=== PATIENT | female | born 1945 | race Caucasian/White ===

== ENCOUNTER 2016-08-27 07:12 | Day surgery (SDC) | payer MEDICARE, OTHER ==
[2016-08-26 09:55] VITALS: BMI 21.8
[~2016-08-27 07:12] MED LIST: DEXAMETHASONE SOD PHOSPHATE 10 MG/ML 1 ML VIAL IV ONE; DEXAMETHASONE SOD PHOSPHATE 4 MG/ML 1 ML VIAL IV ONE; FAMOTIDINE 20 MG/2 ML VIAL IV ONE; HYDROmorphone 1 MG/ML 1 ML SYRINGE IVP PRN; LACTATED RINGERS 1,000 ML IV SCH; ONDANSETRON 4 MG/2 ML VIAL IVP ONE
[2016-08-27] MEDS ORDERED: LIDOCAINE 1% 20 ML VIAL (10MG/ML) FOR IV START INTRADERMA ONE (07:57)
[2016-08-27 08:15] LABS: Basophils # (A) 0.1 k/uL (0-0.2); Basophils % (A) 1 %; CHCM 35.7; Eosinophils # (A) 0.4 k/uL (0-0.7); Eosinophils % (A) 6 %; HCT 40.6 % (34.0-46.0); HDW 2.67; HGB 14.3 gm/dL (11.4-16.0); Luc % (Auto) 3; Lymphocytes # (A) 1.3 k/uL (1.0-4.8); Lymphocytes % (A) 18 %; MCH 32.8 pg (25.0-35.0); MCHC 35.3 g/dL (31.0-37.0); MCV 92.9 fL (80.0-100.0); Mean Platelet Volume 6.7; Monocytes # (A) 0.5 k/uL (0-1.0); Monocytes % (A) 7 %; Neutrophils # (A) 4.8 k/uL (1.3-7.7); Neutrophils % (A) 67 %; RBC 4.37 m/uL (3.80-5.40); RDW 12.4 % (11.5-15.5); WBC 7.2 k/uL (3.8-10.6); WBC (Perox) 7.25
[2016-08-27] MEDS ORDERED: GLYCOPYRROLATE 0.2 MG/ML 2 ML VIAL ONE (08:56)
[2016-08-27] MEDS ORDERED: DEXAMETHASONE SOD PHOS (MDV) 100 MG/10 ML VIAL ONE (08:56)
[2016-08-27] MEDS ORDERED: MIDAZOLAM 2 MG/2 ML VIAL ONE (08:56)
[2016-08-27] MEDS ORDERED: ROCURONIUM BROMIDE 10 MG/ML 10 ML VIAL IV ONE (08:56)
[2016-08-27] MEDS ORDERED: LIDOCAINE 1% INJ 10MG/ML (20 ML MDV) ONE (08:56)
[2016-08-27] MEDS ORDERED: SUCCINYLCHOLINE CHLORIDE 100 MG/5 ML SYR IV ONE (08:56)
[2016-08-27] MEDS ORDERED: PROPOFOL 10 MG/ML 20 ML VIAL IV ONE (08:56)
[2016-08-27] MEDS ORDERED: NEOSTIGMINE 1 MG/ML 10 ML VIAL ONE (08:56)
[2016-08-27] MEDS ORDERED: fentaNYL (PF) 50 MCG/ML 2 ML AMP ONE (08:56)
[2016-08-27 09:47] VITALS: TEMP 97.2
--- NOTE | 2016-08-27 10:01 | P.OP ---
Date of Procedure: 08/27/16 Preoperative Diagnosis: Left vocal cord lesion, leukoplakia, changing, suspicious Cough Dysphasia Tobacco use disorder, hoarseness Postoperative Diagnosis: Same Procedure(s) Performed: Direct microscopic laryngoscopy and removal of left vocal cord lesion Esophagoscopy Bronchoscopy Implants: Anesthesia: CURRYA Surgeon: Bharath Campos Estimated Blood Loss (ml): 0 Pathology: other (Left laryngeal lesion) Condition: stable Disposition: PACU Indications for Procedure: This patient is a 69-year-old white female who is a long-term smoker and was complaining of hoarseness coughing and dysphagia. She has a lesion of the left cord that suspicious change and growing. Is also continuing to smoke AGAINST MEDICAL ADVICE and smokes sometimes upwards to 3 packs per day. Removal of this lesion is recommended. Operative Findings: Patient had a suspicious lesion of the left vocal cord that was removed. Patient has evidence of chronic bronchitis. Esophagus showed no pathology other than some mild reflux disease. Description of Procedure: This patient was taken to the operative room and placed in the supine position. A general inhalation anesthetic was administered to the patient by mask and subsequently intubated with a cuffed endotracheal tube by the department of anesthesia with a functioning IV line in place. Patient was monitored throughout the entire case by the department of anesthesia. A gum guard was placed and a Jako laryngoscope was placed in the patient's mouth with care to avoid any trauma to the lips and gums or tongue. The patient is edentulous. The scope was inserted and the entire Quoc and hypopharynx was evaluated including the piriform sinus lateral pharynx post cricoid space Early vocal cords epiglottis vallecula etc. This was placed on suspension on a Lewy and the vocal cords were magnified with a high-powered Zeiss microscope. There was a whitish lesion noted on the left vocal cord which was removed superficially with care to avoid any trauma to the lamina propria. This was removed on the left anterior vocal cord but care was given not to biopsy in the commissure itself. Hemostasis was spontaneous. After this lesion was removed a bronchoscope was inserted and all 12 segments of the lungs were evaluated. There was evidence of chronic bronchitis with a large amount of mucus but there was no evidence of any endobronchial lesions. The scope was removed and esophagoscope was inserted and the entire length of the esophagus was evaluated. There was no evidence of any esophageal lesions. There was evidence of mild reflux disease. Our esophagoscope went from the upper to lower esophageal sphincter. The patient tolerated this well and a follow-up will be in the office in one week the patient's on 7 days of voice rest.
[2016-08-27 10:55] VITALS: RESP 20
[2016-08-27 11:16] VITALS: BP 122/72; PULSE 68
== END 2016-08-27 11:27 | disposition home or self-care (01) ==
LOC: OR 07:12
PROVIDERS: ATTEND Otolaryngology
DX: J38.3 Other diseases of vocal cords (principal); R47.02 Dysphasia; J38.4 Edema of larynx; J38.7 Other diseases of larynx; J42 Unspecified chronic bronchitis; J45.909 Unspecified asthma, uncomplicated; I10 Essential (primary) hypertension; E03.9 Hypothyroidism, unspecified; E78.5 Hyperlipidemia, unspecified; K21.9 Gastro-esophageal reflux disease without esophagitis; F17.200 Nicotine dependence, unspecified, uncomplicated; Z79.2 Long term (current) use of antibiotics; Z79.891 Long term (current) use of opiate analgesic; Z79.51 Long term (current) use of inhaled steroids; Z79.52 Long term (current) use of systemic steroids; Z79.899 Other long term (current) drug therapy
CPT/HCPCS: 88305; 85025; 31541; 43200; 31622; J2250; J1100 ×2; J2710; J2405; J2001; J3010; J0330; J2704

== ENCOUNTER → 2016-11-05 | Outpatient (CLI) | payer MEDICARE, OTHER ==
--- NOTE | 2016-11-05 12:11 | CT ---
EXAMINATION TYPE: CT brain wo/w con DATE OF EXAM: 11/05/2016 COMPARISON: NONE HISTORY: Ataxic gait CT DLP: 2232 mGycm Automated Exposure Control for Dose Reduction was Utilized. TECHNIQUE: CT scan of the head is performed with IV contrast.,CT scan of the head is performed withou t and with without and with IV Contrast, patient injected with 80 mL of Visipaque 320. FINDINGS: Noncontrast images show no acute intracranial hemorrhage or midline shift. Few scattered foci of hypoattenuation are seen within the centrum semiovale. The ventricles and sulci are within no rmal limits in size. Postcontrast images show no suspicious enhancing intraparenchymal mass. The glob es are intact and the visualized sinuses are clear. Right ocular lens is surgically absent. Atheroscl erosis is seen of the intracranial vasculature. IMPRESSION: 1. No mass effect, abnormal enhancement, acute territorial infarct, or midline shift. 2. Mild white matter changes within the from semiovale, likely on the basis of chronic microangiopath y.
== END | disposition home or self-care (01) ==
LOC: RADCTMAIN 10:31
PROVIDERS: ATTEND Family Medicine
DX: R90.82 White matter disease, unspecified (principal); R26.0 Ataxic gait
CPT/HCPCS: 82565; 84520; 70470; 36415; Q9967

== ENCOUNTER → 2016-12-17 | Outpatient (CLI) | payer MEDICARE, OTHER ==
[2016-12-17 09:38] LABS: CH 31.9; CHCM 33.2; HCT 42.4 % (34.0-46.0); HDW 2.29; HGB 13.6 gm/dL (11.4-16.0); MCHC 32.2 g/dL (31.0-37.0); MCV 96.5 fL (80.0-100.0); Mean Platelet Volume 7.1; RBC 4.39 m/uL (3.80-5.40); RDW 12.4 % (11.5-15.5); WBC 6.5 k/uL (3.8-10.6)
[2016-12-17 09:56] LABS: Potassium 4.6 mmol/L (3.5-5.1)
== END | disposition home or self-care (01) ==
LOC: LABPAT 09:15
PROVIDERS: ATTEND Internal Medicine Interventional Cardiology
DX: Z01.812 Encounter for preprocedural laboratory examination (principal)
CPT/HCPCS: 80051; 82565; 84520; 85027

== ENCOUNTER 2016-12-21 08:32 | Day surgery (SDC) | payer MEDICARE, OTHER ==
[2016-12-16 09:34] VITALS: BMI 21.4
[~2016-12-21 08:32] MED LIST changes: -DEXAMETHASONE SOD PHOSPHATE 10 MG/ML 1 ML VIAL IV ONE; -DEXAMETHASONE SOD PHOSPHATE 4 MG/ML 1 ML VIAL IV ONE; +DOCUSATE 100 MG CAP PO PRN; -FAMOTIDINE 20 MG/2 ML VIAL IV ONE; -HYDROmorphone 1 MG/ML 1 ML SYRINGE IVP PRN; -LACTATED RINGERS 1,000 ML IV SCH; +MAG HYDROX/AL HYDROX/SIMETH 30 ML CUP PO PRN; -ONDANSETRON 4 MG/2 ML VIAL IVP ONE; +SODIUM CHLORIDE 0.9% 1,000 ML IV SCH; +TEMAZEPAM 15 MG CAP PO PRN
[2016-12-21 09:18] LABS: Calcium 9.3 mg/dL (8.4-10.2); Potassium 4.2 mmol/L (3.5-5.1)
[2016-12-21] MEDS ORDERED: MIDAZOLAM 2 MG/2 ML VIAL IV ONE (12:14)
[2016-12-21] MEDS ORDERED: LIDOCAINE 2% INJ 20 MG/ML SQ ONE ×2 (12:19→12:20)
[2016-12-21] MEDS ORDERED: IODIXANOL 320 MG/ML 100 ML INTRAARTER ONE (12:39)
[2016-12-21] MEDS ORDERED: SODIUM CHLORIDE 0.9% 1,000 ML IV SCH (12:45)
--- NOTE | 2016-12-21 13:00 | P.CRDCN ---
History of Present Illness Consult date: 12/21/16 History of present illness: This is so a pleasant 71-year-old female patient who is a patient of Dr. Couch was admitted to the hospital to undergo an aortic arch and bilateral carotid angiogram later on today. The patient was found to have an abnormal carotid duplex study showing what it seems to be severe disease involving the right internal carotid artery. In review of that the patient was scheduled to undergo the arch and carotid angiogram. In terms of past medical history the patient does have hypertension and dyslipidemia. No documented history of coronary artery disease or congestive heart failure or any cardiac arrhythmia in the past. The patient underwent an aortic arch and carotid angiogram and that revealed type II aortic arch which is calcified was mild disease only and severe disease involving the right internal carotid artery appears to be in the range of 70% and mild disease involving the left internal carotid artery. The angiogram would be reviewed by Dr. Cat,. Past Medical History Past Medical History: Cancer, COPD, GERD/Reflux, Hyperlipidemia, Hypertension, Osteoarthritis (OA), Thyroid Disorder Additional Past Medical History / Comment(s): occ. DIZZINESS, CHRONIC BACK PAIN , hx. skin cancer on nose; no current meds for thyroid History of Any Multi-Drug Resistant Organisms: None Reported Past Surgical History: Back Surgery Additional Past Surgical History / Comment(s): triple endo 09/05 Past Anesthesia/Blood Transfusion Reactions: No Reported Reaction Smoking Status: Current every day smoker - Past Family History Mother Family Medical History: Unable to Obtain Additional Family Medical History / Comment(s): WAS ADOPTED. Medications and Allergies Home Medications Medication Instructions Recorded Confirmed Type Albuterol Sulfate [Proair Hfa] 1 puff INHALATION Q4H PRN 12/03/15 12/21/16 History Diazepam 5 mg PO Q8HR PRN 12/03/15 12/21/16 History Fluticasone/Salmeterol [Advair 1 puff INHALATION BID 12/03/15 12/21/16 History 500-50 Diskus] Meclizine [Antivert] 25 mg PO BID 12/03/15 12/21/16 History OLANZapine [ZyPREXA] 5 mg PO QAM 12/03/15 12/21/16 History Ranitidine HCl [Zantac] 150 mg PO QAM 12/03/15 12/21/16 History Omeprazole [PriLOSEC] 20 mg PO AC-BID 08/26/16 12/21/16 History Hydrocodone/Acetaminophen [[place] 1 - 2 each PO Q6HR PRN #30 tab 08/27/16 Rx 5-325] Lisinopril [Zestril] 20 mg PO DAILY 12/16/16 12/21/16 History amLODIPine [Norvasc] 5 mg PO DAILY 12/16/16 12/21/16 History buPROPion HCL [Wellbutrin XL] 300 mg PO DAILY 12/16/16 12/21/16 History Allergies Allergy/AdvReac Type Severity Reaction Status Date / Time No Known Allergies Allergy Verified 12/16/16 08:55 Physical Exam Vitals: Vital Signs Temp Pulse Resp BP Pulse Ox 12/21/16 09:00 97.9 F 66 20 121/69 99 Intake and Output 12/20/16 12/21/16 12/21/16 22:59 06:59 14:59 Intake Total 340 Balance 340 Intake: IV 340 - Constitutional General appearance: no acute distress - Respiratory Respiratory: bilateral: CTA - Cardiovascular Rhythm: regular Heart sounds: normal: S1, S2 Results 12/21/16 08:50 Comprehensive Metabolic Panel 12/21/16 Range/Units 08:50 Sodium 137 (137-145) mmol/L Potassium 4.2 (3.5-5.1) mmol/L Chloride 100 (98-107) mmol/L Carbon Dioxide 24 (22-30) mmol/L BUN 15 (7-17) mg/dL Creatinine 1.16 H (0.52-1.04) mg/dL Glucose 92 (74-99) mg/dL Calcium 9.3 (8.4-10.2) mg/dL Current Medications Generic Name Dose Route Start Last Admin Trade Name Freq PRN Reason Stop Dose Admin Al Hydroxide/Mg Hydroxide 30 ml 12/21/16 08:06 Maalox PO Q4HR PRN Indigestion Docusate Sodium 100 mg 12/21/16 08:06 Colace PO DAILY PRN Constipation Sodium Chloride 1,000 mls @ 100 mls/hr 12/21/16 08:06 12/21/16 08:50 Saline 0.9% IV 340 mls .Q10H SEAN Administration Sodium Chloride 1,000 mls @ 100 mls/hr 12/21/16 12:45 Saline 0.9% IV 12/21/16 17:46 .Q10H SEAN Temazepam 15 mg 12/21/16 08:06 Restoril PO HS PRN Insomnia Intake and Output 12/20/16 12/21/16 12/21/16 22:59 06:59 14:59 Intake Total 340 Balance 340 Intake: IV 340 12/21/16 08:50 Assessment and Plan Plan: This is a pleasant 71-year-old female patient who was admitted to the hospital and underwent an aortic arch and carotid angiogram. The patient is going to be discharged home in about 5 hours. We'll give the patient IV hydration. I'll follow-up with the patient next week in the office. Further recommendation to follow after I review the angiogram was Dr. Cat.
--- NOTE | 2016-12-21 13:02 | IR ---
EXAMINATION TYPE: IR angio aortic arch DATE OF EXAM: 12/21/2016 COMPARISON: NONE HISTORY: Peripheral vascular occlusive disease. Fluoroscopy was provided to the referring clinician. See dictated report from cardiology.
[2016-12-21 13:45] VITALS: RESP 18; TEMP 97.6
[2016-12-21 16:24] VITALS: BP 151/66; PULSE 63
--- NOTE | 2016-12-22 07:18 | AN ---
ANGIOGRAPHY REPORT DATE OF SERVICE: 12/21/2016 PERFORMING PHYSICIAN: Ryan Cortes MD, dividend clerk. PROCEDURE PERFORMED: 1. An aortic arch angiogram. 2. Selective bilateral carotid angiogram. INDICATION: This is a pleasant 71-year-old female patient who sees Dr. Cat as an outpatient who was found to have disease involving the right internal carotid artery. She was scheduled today to undergo an aortic arch and carotid angiogram. APPROACH: Right common femoral artery. COMPLICATION: None. LEVEL OF SEDATION: Moderate with sedation length of 22 minutes. PROCEDURE DESCRIPTION: After obtaining an informed consent, the patient was brought to the cardiac laborer. The right common femoral artery was cannulated using micropuncture technique, the micropuncture wire passed easily then I placed a 6-[place] sheath in the right common femoral artery. Subsequently I did an aortic arch angiogram using 5-[place] pigtail catheter. After that, I did selective right and left carotid angiogram using JB2 catheter. The procedure was completed without any complication. SELECTIVE PERIPHERAL ANGIOGRAM: 1. The aortic arch is a type 2 arch and it is a calcified arch as well. It has mild disease only. It gives rise to the innominate artery, left carotid, and left subclavian. 2. THE RIGHT CAROTID SYSTEM. The right common carotid artery appeared to be angiographically normal. It bifurcates into right external carotid and right internal carotid. The right external carotid appeared to have mild disease only and the right internal carotid has an ostial disease appeared to be in the range of 70%. 3. THE LEFT CAROTID SYSTEM. The left common carotid artery is angiographically normal. It bifurcates into left external carotid and left internal carotid. The left external carotid appeared to be angiographically normal and the left internal carotid appeared to have mild disease only. CONCLUSION: 1. Type 2 aortic arch, which is a calcified arch with mild disease only. 2. Severe disease involving the ostial/proximal right internal carotid artery. 3. Mild disease involving the left internal carotid artery. POSTPROCEDURE MANAGEMENT: Further recommendation is to follow after I discuss the case with Dr. Cat who is the primary physician taking care of the patient. MMODL / IJN: [id number] /
== END 2016-12-21 19:08 | disposition home or self-care (01) ==
LOC: CATHCVL 08:32 → 3OBS 12:40 → CATHCVL 19:08
PROVIDERS: ATTEND Internal Medicine Interventional Cardiology
DX: I65.23 Occlusion and stenosis of bilateral carotid arteries (principal); I70.0 Atherosclerosis of aorta; J44.9 Chronic obstructive pulmonary disease, unspecified; F17.200 Nicotine dependence, unspecified, uncomplicated; K21.9 Gastro-esophageal reflux disease without esophagitis; E78.5 Hyperlipidemia, unspecified; I10 Essential (primary) hypertension; M19.90 Unspecified osteoarthritis, unspecified site; E07.9 Disorder of thyroid, unspecified; Z85.828 Personal history of other malignant neoplasm of skin; Z79.51 Long term (current) use of inhaled steroids; Z79.899 Other long term (current) drug therapy
CPT/HCPCS: 99152; 99153; 36222; 80048; C1769 ×4; C1894; J2001; J2250; Q9967

== ENCOUNTER → 2017-01-25 | Outpatient (CLI) | payer MEDICARE, OTHER ==
--- NOTE | 2017-01-25 09:21 | FL ---
ESOPHOGRAM. HISTORY: Dysphagia Esophagram was performed per the air contrast technique. The patient swallowed barium and effervesce nt crystals without difficulty or delay. Esophageal peristalsis and motility appear to be within normal limits. There is no evidence for filling defect, mass or diverticulum. Very small reducible hiatal hernia noted. Subsequently single contrast cervical esophagram was performed which fails demonstrate evidence for a spiration penetration or mass. IMPRESSION: Very small reducible hiatal hernia noted.
== END | disposition home or self-care (01) ==
LOC: RADFLWHC 08:41
PROVIDERS: ATTEND Otolaryngology
DX: K44.9 Diaphragmatic hernia without obstruction or gangrene (principal); R13.10 Dysphagia, unspecified
CPT/HCPCS: 74220

== ENCOUNTER → 2018-01-11 | Outpatient (CLI) | payer MEDICARE, OTHER ==
--- NOTE | 2018-01-11 09:58 | US ---
EXAMINATION TYPE: US gallbladder DATE OF EXAM: 01/11/2018 COMPARISON: Ultrasound of 2013 CLINICAL HISTORY: R10.31 Right lower quadrant pain. EXAM MEASUREMENTS: Liver Length: 12.1 cm Gallbladder Wall: 0.2 cm CBD: 0.1 cm Right Kidney: 7.1x3.1x3.1 cm Pancreas: Obscured by bowel gas Liver: wnl Gallbladder: There is a 4 mm gallbladder polyp, stable from the exam of 05/02/2013. No shadowing galls tones. Evidence for sonographic Cheatham's sign: No CBD: wnl Right Kidney: atrophic with cortical thinning. No hydronephrosis. IMPRESSION: 1. Stable 4 mm gallbladder polyp dating back to 2013. No sonographic evidence of acute cholecystitis. 2. Sonographic sequela of medical renal disease of the right kidney.
== END | disposition home or self-care (01) ==
LOC: RADUSWWP 08:48
PROVIDERS: ATTEND Family Medicine
DX: K82.4 Cholesterolosis of gallbladder (principal)
CPT/HCPCS: 76705

== ENCOUNTER 2018-07-18 17:00 | Inpatient (IN) | payer MEDICARE, OTHER ==
[2018-07-18] MEDS ORDERED: SODIUM CHLORIDE 0.9% 500 ML 1,000 ML IV STA (17:23)
--- NOTE | 2018-07-18 17:23 | ED ---
General Adult HPI - General Chief complaint: Shortness of Breath Stated complaint: SOB/abdominal pain Time Seen by Provider: 07/18/18 17:08 Source: patient Mode of arrival: wheelchair Limitations: no limitations - History of Present Illness Initial comments: Dictation was produced using [employer] dictation software. please excuse any gram matical, word or spelling errors. Chief Complaint: 72-year-old female past medical history of COPD GERD, hypertension presents chief complaint of dizziness and shortness of breath. History of Present Illness: Patient is 72-year-old female presents with 3-4 days of dizziness and shortness of breath. She states that her symptoms began spontaneously. Patient patient has a history of COPD. She states that she normally has a cough over the last 3-4 days her cough has been productive sputum. Denies any constitutional symptoms. Patient states that she has dizziness especially when standing up. She denies any dizziness with rest. She is brought in by family member. He states he took her blood pressure multiple occasion she is found have systolic in the 80s. She was evaluated at walk-in clinic today they told her to come to the emergency department for concerns of something a little more serious and that can be managed at the urgent care. The ROS documented in this emergency department record has been reviewed and confirmed by me. Those systems with pertinent positive or negative responses have been documented in the HPI. All other systems are other negative and/or noncontributory. PHYSICAL EXAM: General Impression: Alert and oriented x3, not in acute distress HEENT: Normocephalic atraumatic, extra-ocular movements intact, pupils equal and reactive to light bilaterally, mucous membranes moist, impacted cerumen to bilateral external auditory canal is Cardiovascular: Heart regular rate and rhythm, S1&S2 audible, no murmurs, rubs or gallops Chest: Lungs clear to auscultation bilaterally, no rhonchi, no wheeze, no rales Abdomen: Bowel sounds present, abdomen soft, non-tender, non-distended, no organomegaly Musculoskeletal: Pulses present and equal in all extremities, , weak pulses, no peripheral edema Motor: no focal deficits noted Neurological: CN II-XII grossly intact, no focal motor or sensory deficits noted Skin: Intact with no visualized rashes Psych: Normal affect and mood ED course: 72-year-old female chief complaint of dizziness and shortness of breath. Vital signs upon arrival shows blood pressure 98/59, worse vital signs within acceptable limits.Laboratory evaluation obtained. CBC unremarkable. Coag panel is unremarkable. Patient Cb irrigated with removal of large pieces of impacted cerumen. Metabolic panel was obtained showing sodium 121. Patient's renal markers are baseline. Rest of metabolic panel is unremarkable. Liver enzymes are negative. Chest x-ray is nonacute. Patient given intravenous fluids. Patient be admitted for electrolyte abnormality and hypotension. Patient's clinical presentation likely secondary to dehydration. Patient is understandable and agreeable to disposition. Discussed patient case with Dr. Argueta who is willing to accept admission. EKG interpretation: Ventricular rate 74, sinus rhythm with first-degree AV block, OK interval 254, QRS 70, QTc 435., no QTC prolongation, no ST or T-wave changes noted. EKG compared to 03/13/2015 showing no changes. Overall, this E KG is unremarkable - Related Data Home Medications Medication Instructions Recorded Confirmed Albuterol Sulfate [Proair Hfa] 1 puff INHALATION RT-BID 12/03/15 07/18/18 Diazepam 5 mg PO Q8HR PRN 12/03/15 07/18/18 Meclizine [Antivert] 25 mg PO DAILY 12/03/15 07/18/18 OLANZapine [ZyPREXA] 5 mg PO DAILY 12/03/15 07/18/18 Ranitidine HCl [Zantac] 150 mg PO DAILY 12/03/15 07/18/18 Omeprazole [PriLOSEC] 20 mg PO AC-BID 08/26/16 07/18/18 Lisinopril [Zestril] 20 mg PO DAILY 12/16/16 07/18/18 amLODIPine [Norvasc] 5 mg PO DAILY 12/16/16 07/18/18 Budesonide/Formoterol Fumarate 2 puff INHALATION RT-BID 07/18/18 07/18/18 [Symbicort 160-4.5 Mcg Inhaler] HYDROcodone/APAP 7.5-325MG [[place] 1 tab PO Q6H PRN 07/18/18 07/18/18 7.5-325] Hydrochlorothiazide [Hydrodiuril] 25 mg PO DAILY 07/18/18 07/18/18 Simvastatin [Zocor] 20 mg PO DAILY 07/18/18 07/18/18 Allergies Allergy/AdvReac Type Severity Reaction Status Date / Time No Known Allergies Allergy Verified 07/18/18 17:32 Review of Systems ROS Statement: Those systems with pertinent positive or pertinent negative responses have been documented in the HPI. ROS Other: All systems not noted in ROS Statement are negative. Past Medical History Past Medical History: Cancer, COPD, GERD/Reflux, Hyperlipidemia, Hypertension, Osteoarthritis (OA), Thyroid Disorder Additional Past Medical History / Comment(s): occ. DIZZINESS, CHRONIC BACK PAIN, hx. skin cancer on nose; no current meds for thyroid History of Any Multi-Drug Resistant Organisms: None Reported Past Surgical History: Back Surgery Additional Past Surgical History / Comment(s): triple endo 09/05 Past Anesthesia/Blood Transfusion Reactions: No Reported Reaction Past Psychological History: Depression Smoking Status: Current every day smoker Past Alcohol Use History: None Reported Past Drug Use History: None Reported - Past Family History Mother Family Medical History: Unable to Obtain Additional Family Medical History / Comment(s): WAS ADOPTED. General Exam Limitations: no limitations Course Vital Signs 07/18/18 17:07 Temperature 97.7 F Pulse Rate 89 Respiratory 18 Rate Blood Pressure 98/59 O2 Sat by Pulse 99 Oximetry Medical Decision Making - Lab Data Result diagrams: 07/18/18 17:32 07/18/18 17:32 Lab Results 07/18/18 07/18/18 07/18/18 Range/Units 17:32 17:32 17:32 WBC 5.7 (3.8-10.6) k/uL RBC 4.53 (3.80-5.40) m/uL Hgb 14.4 (11.4-16.0) gm/dL Hct 41.3 (34.0-46.0) % MCV 91.3 (80.0-100.0) fL MCH 31.8 (25.0-35.0) pg MCHC 34.9 (31.0-37.0) g/dL RDW 13.2 (11.5-15.5) % Plt Count 302 (150-450) k/uL Neutrophils % 68 % Lymphocytes % 16 % Monocytes % 10 % Eosinophils % 2 % Basophils % 1 % Neutrophils # 3.9 (1.3-7.7) k/uL Lymphocytes # 0.9 L (1.0-4.8) k/uL Monocytes # 0.6 (0-1.0) k/uL Eosinophils # 0.1 (0-0.7) k/uL Basophils # 0.1 (0-0.2) k/uL PT 9.5 (9.0-12.0) sec INR 0.9 (<1.2) APTT 25.1 (22.0-30.0) sec Sodium 121 L (137-145) mmol/L Potassium 3.8 (3.5-5.1) mmol/L Chloride 81 L (98-107) mmol/L Carbon Dioxide 29 (22-30) mmol/L Anion Gap 11 mmol/L BUN 14 (7-17) mg/dL Creatinine 1.17 H (0.52-1.04) mg/dL Est GFR (CKD-EPI)AfAm 54 (>60 ml/min/1.73 sqM) Est GFR (CKD-EPI)NonAf 47 (>60 ml/min/1.73 sqM) Glucose 117 H (74-99) mg/dL Calcium 9.5 (8.4-10.2) mg/dL Magnesium 1.8 (1.6-2.3) mg/dL Total Bilirubin 1.1 (0.2-1.3) mg/dL AST 28 (14-36) U/L ALT 27 (9-52) U/L Alkaline Phosphatase 79 (38-126) U/L Total Protein 6.9 (6.3-8.2) g/dL Albumin 4.5 (3.5-5.0) g/dL Disposition Clinical Impression: Hyponatremia, Dehydration, Hypotension Disposition: ADMITTED IP TO THIS HOSP Condition: Fair Is patient prescribed a controlled substance at d/c from ED?: No Referrals: Randell Virk Jr, [Primary Care Provider] - 1-2 days Time of Disposition: 20:06
[2018-07-18] MEDS ORDERED: MECLIZINE 12.5 MG TAB PO STA (17:24)
[2018-07-18 17:45] LABS: Basophils # (A) 0.1 k/uL (0-0.2); Basophils % (A) 1 %; Eosinophils # (A) 0.1 k/uL (0-0.7); Eosinophils % (A) 2 %; HCT 41.3 % (34.0-46.0); HGB 14.4 gm/dL (11.4-16.0); Lymphocytes # (A) 0.9 k/uL (1.0-4.8); Lymphocytes % (A) 16 %; MCH 31.8 pg (25.0-35.0); MCHC 34.9 g/dL (31.0-37.0); MCV 91.3 fL (80.0-100.0); Mean Platelet Volume 6.9; Monocytes # (A) 0.6 k/uL (0-1.0); Monocytes % (A) 10 %; Neutrophils # (A) 3.9 k/uL (1.3-7.7); Neutrophils % (A) 68 %; Platelet Count 302 k/uL (150-450); RBC 4.53 m/uL (3.80-5.40); RDW 13.2 % (11.5-15.5); WBC 5.7 k/uL (3.8-10.6)
[2018-07-18 17:53] LABS: Albumin 4.5 g/dL (3.5-5.0); Calcium 9.5 mg/dL (8.4-10.2); Magnesium 1.8 mg/dL (1.6-2.3); Potassium 3.8 mmol/L (3.5-5.1); Total Bilirubin 1.1 mg/dL (0.2-1.3); Total Protein 6.9 g/dL (6.3-8.2)
[2018-07-18 17:58] LABS: INR 0.9 (<1.2); Partial Thromboplastin Time 25.1 sec (22.0-30.0); Prothrombin Time 9.5 sec (9.0-12.0)
--- NOTE | 2018-07-18 18:30 | XR ---
EXAMINATION TYPE: XR chest 2V DATE OF EXAM: 07/18/2018 COMPARISON: Chest x-ray December 05, 2015. HISTORY: Difficulty breathing and cough TECHNIQUE: Frontal and lateral views of the chest are obtained. FINDINGS: There is chronic emphysematous change without suspicious new focal air space opacity, pleu ral effusion, or pneumothorax seen. Overlying EKG leads are redemonstrated. The cardiac silhouette si ze remains within normal limits with atherosclerotic change in aortic knob. Multilevel spurring thora cic spine is seen. IMPRESSION: Chronic emphysematous change without acute pulmonary process.
[2018-07-18] MEDS ORDERED: NALOXONE 0.4 MG/ML 1 ML VIAL IV PRN (20:06)
[2018-07-18] MEDS ORDERED: ONDANSETRON 4 MG/2 ML VIAL IVP PRN (20:06)
[2018-07-18] MEDS ORDERED: ACETAMINOPHEN TAB 325 MG TAB PO PRN (20:06)
[2018-07-18] MEDS: SODIUM CHLORIDE 0.9% 1,000 ML IV SCH (20:38)
[2018-07-18] MEDS ORDERED: LORazepam 2 MG/ML INJ IV PRN ×3 (21:42)
[2018-07-18] MEDS: NICOTINE 21MG/24HR PATCH TRANSDERM SCH (23:25)
[2018-07-19] MEDS: SODIUM CHLORIDE 0.9% 1,000 ML IV SCH ×2 (06:20→15:46)
[2018-07-19] MEDS ORDERED: PANTOPRAZOLE 40 MG TABLET PO SCH (07:30)
[2018-07-19] MEDS: SYMBICORT 160-4.5 MCG INHALER INHALATION SCH ×2 (09:04→18:40)
[2018-07-19] MEDS: ALBUTEROL NEBULIZED 2.5 MG/3 ML INHALATION SCH ×2 (09:04→18:40)
[2018-07-19 09:17] LABS: Basophils % (A) 1 %; Eosinophils # (A) 0.1 k/uL (0-0.7); Eosinophils % (A) 3 %; HCT 32.6 % (34.0-46.0); HGB 11.6 gm/dL (11.4-16.0); Lymphocytes # (A) 0.8 k/uL (1.0-4.8); Lymphocytes % (A) 21 %; MCH 33.2 pg (25.0-35.0); MCHC 35.5 g/dL (31.0-37.0); MCV 93.7 fL (80.0-100.0); Mean Platelet Volume 6.7; Monocytes # (A) 0.5 k/uL (0-1.0); Monocytes % (A) 13 %; Neutrophils # (A) 2.1 k/uL (1.3-7.7); Neutrophils % (A) 58 %; Platelet Count 216 k/uL (150-450); RBC 3.48 m/uL (3.80-5.40); RDW 12.6 % (11.5-15.5); WBC 3.6 k/uL (3.8-10.6)
[2018-07-19 09:28] LABS: Calcium 8.5 mg/dL (8.4-10.2); Magnesium 1.7 mg/dL (1.6-2.3); Potassium 3.3 mmol/L (3.5-5.1)
--- NOTE | 2018-07-19 09:51 | P.CRDCN ---
History of Present Illness Consult date: 07/19/18 Requesting physician: Panfilo Argueta Consult reason: atrial fibrillation Chief complaint: Dizziness History of present illness: His is a pleasant 72-year-old female with history of COPD, nicotine dependence, patient has smoked for over 40 years, history of hypertension, she does state that she was told several years ago to have some issues with her thyroid, she is not on any thyroid medication. Patient did undergo an aortogram by Dr. Javed in 2017 which revealed right carotid artery stenosis of approximately 70%. She presented to the hospital with symptoms of dizziness, and feeling somewhat unsteady when she walks, she feels that at times she could fall over. She has been experiencing these symptoms off and on for the past several months. According to the patient, her appetite has also been very poor and she has not been eating well over the past several months. Her weight is down over 20 pounds over the past number of months. Patient also states at times that she experiences some shortness of breath. She also is complaining of some discomfort in the right upper quadrant of her abdomen, very tender on palpation. Her chest x-ray on admission here showed chronic emphysema changes without any acute pulmonary process. Her EKG on admission showed a normal sinus rhythm with a first-degree AV block. Subsequent to that patient did have a repeat EKG performed because she went into atrial fibrillation. At the time of my examination this morning she is back in a normal sinus rhythm. Blood pressure 146/68, heart rate in the 70s, 100% on room air, she is afebrile. White blood cell count on admission 5.7, 3.6 this morning. Hemoglobin 14.4 on admission, 11.6 this morning, platelet count 302 on admission, 216 this morning. Her sodium on admission was 121 and is 125 this morning, potassium on admission 3.8, this morning is 3.3. Creatinine 0.7 with a BUN of 10. Calcium is 8.5, magnesium this morning is 1.7. Troponin 0.012, AST and ALT are normal bilirubin is also normal. At the time of my examination this morning, patient just complains of feeling tired, she denies any dizziness at present, no palpitations no chest discomfort or shortness of breath. Past Medical History Past Medical History: Cancer, COPD, GERD/Reflux, Hyperlipidemia, Hypertension, Osteoarthritis (OA), Thyroid Disorder Additional Past Medical History / Comment(s): occ. DIZZINESS, CHRONIC BACK PAIN, hx. skin cancer on nose; no current meds for thyroid History of Any Multi-Drug Resistant Organisms: None Reported Past Surgical History: Back Surgery, Cholecystectomy Additional Past Surgical History / Comment(s): triple endo January 2018 for gallbladder removal Past Anesthesia/Blood Transfusion Reactions: No Reported Reaction Past Psychological History: Anxiety, Depression Smoking Status: Current every day smoker Past Alcohol Use History: Occasional Additional Past Alcohol Use History / Comment(s): has smoked for over FOR 45 YRS.Has cut down to 10 cigs a day Past Drug Use History: None Reported - Past Family History Mother Family Medical History: Unable to Obtain Additional Family Medical History / Comment(s): WAS ADOPTED. Medications and Allergies Home Medications Medication Instructions Recorded Confirmed Type Albuterol Sulfate [Proair Hfa] 1 puff INHALATION RT-BID 12/03/15 07/18/18 History Diazepam 5 mg PO Q8HR PRN 12/03/15 07/18/18 History Meclizine [Antivert] 25 mg PO DAILY 12/03/15 07/18/18 History OLANZapine [ZyPREXA] 5 mg PO DAILY 12/03/15 07/18/18 History Ranitidine HCl [Zantac] 150 mg PO DAILY 12/03/15 07/18/18 History Omeprazole [PriLOSEC] 20 mg PO AC-BID 08/26/16 07/18/18 History Lisinopril [Zestril] 20 mg PO DAILY 12/16/16 07/18/18 History amLODIPine [Norvasc] 5 mg PO DAILY 12/16/16 07/18/18 History Budesonide/Formoterol Fumarate 2 puff INHALATION RT-BID 07/18/18 07/18/18 History [Symbicort 160-4.5 Mcg Inhaler] HYDROcodone/APAP 7.5-325MG [[place] 1 tab PO Q6H PRN 07/18/18 07/18/18 History 7.5-325] Hydrochlorothiazide [Hydrodiuril] 25 mg PO DAILY 07/18/18 07/18/18 History Simvastatin [Zocor] 20 mg PO DAILY 07/18/18 07/18/18 History Allergies Allergy/AdvReac Type Severity Reaction Status Date / Time No Known Allergies Allergy Verified 07/18/18 17:32 Physical Exam Vitals: Vital Signs Temp Pulse Pulse Resp BP BP Pulse Ox 07/19/18 09:18 75 07/19/18 09:05 71 07/19/18 08:00 98.2 F 74 20 146/68 100 07/19/18 03:20 85 18 07/19/18 03:18 97.7 F 85 18 142/73 93 L 07/18/18 23:53 61 16 07/18/18 23:51 97.6 F 61 16 92/52 95 07/18/18 21:30 97.4 F L 83 18 124/86 97 07/18/18 21:04 97.4 F L 83 18 124/86 97 07/18/18 20:00 91 17 143/76 95 07/18/18 19:30 80 16 97 07/18/18 19:00 76 14 93 L 07/18/18 18:30 73 16 96 07/18/18 18:00 77 17 94 L 07/18/18 17:07 97.7 F 89 18 98/59 99 Intake and Output 07/18/18 07/19/18 07/19/18 22:59 06:59 14:59 Intake Total 999 800 240 Balance 999 800 240 Intake: Intake, IV Titration 999 800 Amount Sodium Chloride 0.9% 1, 800 000 ml @ 100 mls/hr IV . Q10H [facility] Rx#:[id number] Sodium Chloride 0.9% 500 999 ml 1,000 ml @ 999 mls/hr IV .Q1H1M [facility] Rx#: [id number] Oral 240 Other: Voiding Method Toilet Toilet Toilet # Voids 1 1 Weight 49.895 kg 49.7 kg PHYSICAL EXAMINATION: GENERAL: Frail 72-year-old female in no acute distress at the time of my examination HEENT: Head is atraumatic, normocephalic. Pupils equal, round. Sclera anicteric. Conjunctiva are clear. Mucous membranes of the mouth are moist. Neck is supple. There is no elevated jugular venous pressure. Significant right-sided carotid bruit is heard. HEART EXAMINATION: Heart S1 and S2 with soft systolic murmur is heard CHEST EXAMINATION: Lungs reveal decreased air exchange throughout ABDOMEN: Soft, nontender. Bowel sounds are heard. No organomegaly noted. EXTREMITIES: 2+ peripheral pulses with no evidence of peripheral edema and no calf tenderness noted. NEUROLOGIC patient is awake, alert and oriented 3. . Results 07/19/18 08:47 07/19/18 08:47 Cardiac Enzymes 07/18/18 07/18/18 Range/Units 17:32 17:32 AST 28 (14-36) U/L Troponin I <0.012 (0.000-0.034) ng/mL Coagulation 07/18/18 Range/Units 17:32 PT 9.5 (9.0-12.0) sec APTT 25.1 (22.0-30.0) sec CBC 07/18/18 07/19/18 Range/Units 17:32 08:47 WBC 5.7 3.6 L (3.8-10.6) k/uL RBC 4.53 3.48 L (3.80-5.40) m/uL Hgb 14.4 11.6 (11.4-16.0) gm/dL Hct 41.3 32.6 L (34.0-46.0) % Plt Count 302 216 (150-450) k/uL Comprehensive Metabolic Panel 07/18/18 07/19/18 Range/Units 17:32 08:47 Sodium 121 L 125 L (137-145) mmol/L Potassium 3.8 3.3 L (3.5-5.1) mmol/L Chloride 81 L 90 L (98-107) mmol/L Carbon Dioxide 29 29 (22-30) mmol/L BUN 14 10 (7-17) mg/dL Creatinine 1.17 H 0.78 (0.52-1.04) mg/dL Glucose 117 H 105 H (74-99) mg/dL Calcium 9.5 8.5 (8.4-10.2) mg/dL AST 28 (14-36) U/L ALT 27 (9-52) U/L Alkaline Phosphatase 79 (38-126) U/L Total Protein 6.9 (6.3-8.2) g/dL Albumin 4.5 (3.5-5.0) g/dL Current Medications Generic Name Dose Route Start Last Admin Trade Name Freq PRN Reason Stop Dose Admin Acetaminophen 650 mg 07/18/18 20:06 Tylenol Tab PO Q6HR PRN Mild Pain or Fever > 100.5 Albuterol Sulfate 2.5 mg 04/30/19 08:00 07/19/18 09:04 Ventolin Nebulized INHALATION 2.5 mg RT-BID SEAN Administration Budesonide/Formoterol Fumarate 2 puff 07/19/18 08:00 07/19/18 09:04 Symbicort 160-4.5 Mcg Inhaler INHALATION 2 puff RT-BID SEAN Administration Sodium Chloride 1,000 mls @ 100 mls/hr 07/18/18 20:15 07/19/18 06:20 Saline 0.9% IV 100 mls/hr .Q10H SEAN Administration Lorazepam 1 mg 07/18/18 21:42 Ativan IV Q2HR PRN CIWA 8 or 9 Lorazepam 1 mg 07/18/18 21:42 Ativan IV Q1HR PRN CIWA 10 to 15 Lorazepam 2 mg 07/18/18 21:42 Ativan IV 07/20/18 21:42 Q10M PRN CIWA 16 or higher Naloxone HCl 0.2 mg 07/18/18 20:06 Narcan IV Q2M PRN Opioid Reversal Nicotine 1 patch 07/18/18 22:15 07/18/18 23:25 Habitrol 21mg/24hr Patch TRANSDERM 1 patch DAILY@2100 SEAN Administration Ondansetron HCl 4 mg 07/18/18 20:06 Zofran IVP Q8HR PRN Nausea And Vomiting Pantoprazole Sodium 40 mg 07/19/18 07:30 07/19/18 06:19 Protonix PO 40 mg AC-[id number] SEAN Administration Intake and Output 07/18/18 07/19/18 07/19/18 22:59 06:59 14:59 Intake Total 999 800 240 Balance 999 800 240 Intake: Intake, IV Titration 999 800 Amount Sodium Chloride 0.9% 1, 800 000 ml @ 100 mls/hr IV . Q10H [facility] Rx#:[id number] Sodium Chloride 0.9% 500 999 ml 1,000 ml @ 999 mls/hr IV .Q1H1M [facility] Rx#: [id number] Oral 240 Other: Voiding Method Toilet Toilet Toilet # Voids 1 1 Weight 49.895 kg 49.7 kg 07/19/18 08:47 07/19/18 08:47 EKG Interpretations (text) Initial EKG shows a normal sinus rhythm with no acute changes. Subsequent EKG showed atrial fibrillation with a controlled ventricular response. Assessment and Plan Plan: Assessment and plan #1 symptoms of dizziness with associated weakness and unsteadiness. #2 hyponatremia #3 paroxysmal atrial fibrillation, appears to be new for the patient #4 hypertension #5 nicotine dependence #6 COPD #7 GERD #8 hyperlipidemia #9 right internal carotid artery disease, patient underwent an aortogram [place] [address] Javed #10 hypokalemia Plan We will obtain an echocardiogram with Doppler study as well as a TSH level. Replace potassium. We will resume the patient's Norvasc, and initiate statin, resume Zestril. We will also check orthostatic blood pressure and heart rate every shift. Continue to monitor for any arrhythmias. Gently hydrate the patient. I did also discuss the need for anticoagulation with the patient for stroke prevention. Further recommendations to follow. DNP note has been reviewed, I agree with a documented findings and plan of care. Patient was seen and examined.
[2018-07-19] MEDS: POTASSIUM CHLORIDE ER 20 MEQ TAB.ER PO SCH ×3 (11:33→14:03)
[2018-07-19] MEDS: ATORVASTATIN 40 MG TAB PO SCH (11:33)
[2018-07-19] MEDS: APIXABAN 5 MG TAB PO SCH ×2 (11:33→19:50)
[2018-07-19] MEDS: MECLIZINE 25 MG TAB PO SCH (11:33)
[2018-07-19] MEDS ORDERED: DIAZEPAM 5 MG TAB PO PRN (12:19)
--- NOTE | 2018-07-19 12:19 | P.HPIM ---
History of Present Illness H&P Date: 07/19/18 Chief Complaint: Fatigue and dizziness This is a pleasant 72-year-old white female, patient of my partner, Dr. Randell Virk. She came to the emergency room with the dizziness and fatigue for the past several days. She reports the dizziness and fatigue and been ongoing jono vick than this. She does have a history of COPD and does report some coughing, that is not her main complaint. She denies any chest pains, pressures. She does have some shortness of breath. She is instructed smoking history. She is generally being rehydrated. Overnight she began experiencing atrial fibrillation on the monitor which last approximately 1 hour, resolved on its own. Today she feels a bit better, denies any significant complaints other than some mild fatigue. Laboratory studies show a hyponatremia 121. Thyroid screening was negative. Troponin 1 was negative. Serum osmolality is low at 260 and urine osmolality is 196. Spot urine sodium is pending. Review of Systems All systems: negative Past Medical History Past Medical History: Cancer ([place]kin[place]), COPD, GERD/Reflux, Hyperlipidemia, Hyper tension, Osteoarthritis (OA), Thyroid Disorder (Unknown type) Additional Past Medical History / Comment(s): occ. DIZZINESS, CHRONIC BACK PAIN History of Any Multi-Drug Resistant Organisms: None Reported Past Surgical History: Back Surgery, Cholecystectomy Additional Past Surgical History / Comment(s): triple endo January 2018 for gallbladder removal Past Anesthesia/Blood Transfusion Reactions: No Reported Reaction Past Psychological History: Anxiety, Depression Smoking Status: Current every day smoker Past Alcohol Use History: Occasional Additional Past Alcohol Use History / Comment(s): has smoked for over FOR 45 YRS.Has cut down to 10 cigs a day Past Drug Use History: None Reported - Past Family History Mother Family Medical History: Unable to Obtain Additional Family Medical History / Comment(s): WAS ADOPTED. Medications and Allergies Home Medications Medication Instructions Recorded Confirmed Type Albuterol Sulfate [Proair Hfa] 1 puff INHALATION RT-BID 12/03/15 07/18/18 History Diazepam 5 mg PO Q8HR PRN 12/03/15 07/18/18 History Meclizine [Antivert] 25 mg PO DAILY 12/03/15 07/18/18 History OLANZapine [ZyPREXA] 5 mg PO DAILY 12/03/15 07/18/18 History Ranitidine HCl [Zantac] 150 mg PO DAILY 12/03/15 07/18/18 History Omeprazole [PriLOSEC] 20 mg PO AC-BID 08/26/16 07/18/18 History Lisinopril [Zestril] 20 mg PO DAILY 12/16/16 07/18/18 History amLODIPine [Norvasc] 5 mg PO DAILY 12/16/16 07/18/18 History Budesonide/Formoterol Fumarate 2 puff INHALATION RT-BID 07/18/18 07/18/18 History [Symbicort 160-4.5 Mcg Inhaler] HYDROcodone/APAP 7.5-325MG [[place] 1 tab PO Q6H PRN 07/18/18 07/18/18 History 7.5-325] Hydrochlorothiazide [Hydrodiuril] 25 mg PO DAILY 07/18/18 07/18/18 History Simvastatin [Zocor] 20 mg PO DAILY 07/18/18 07/18/18 History Allergies Allergy/AdvReac Type Severity Reaction Status Date / Time No Known Allergies Allergy Verified 07/18/18 17:32 Physical Exam Vitals: Vital Signs Temp Pulse Pulse Pulse Pulse Pulse Resp 07/19/18 11:25 98 F 76 85 68 16 07/19/18 09:18 75 07/19/18 09:05 71 07/19/18 08:00 98.2 F 74 20 07/19/18 03:20 85 18 07/19/18 03:18 97.7 F 85 18 07/18/18 23:53 61 16 07/18/18 23:51 97.6 F 61 16 07/18/18 21:30 97.4 F L 83 18 07/18/18 21:04 97.4 F L 83 18 07/18/18 20:00 91 17 07/18/18 19:30 80 16 07/18/18 19:00 76 14 07/18/18 18:30 73 16 07/18/18 18:00 77 17 07/18/18 17:07 97.7 F 89 18 BP BP BP BP BP Pulse Ox 07/19/18 11:25 127/68 109/63 138/62 97 07/19/18 09:18 07/19/18 09:05 07/19/18 08:00 146/68 100 07/19/18 03:20 07/19/18 03:18 142/73 93 L 07/18/18 23:53 07/18/18 23:51 92/52 95 07/18/18 21:30 124/86 97 07/18/18 21:04 124/86 97 07/18/18 20:00 143/76 95 07/18/18 19:30 97 07/18/18 19:00 93 L 07/18/18 18:30 96 07/18/18 18:00 94 L 07/18/18 17:07 98/59 99 Intake and Output 07/18/18 07/19/18 07/19/18 22:59 06:59 14:59 Intake Total 999 800 240 Output Total 400 Balance 999 800 -160 Intake: Intake, IV Titration 999 800 Amount Sodium Chloride 0.9% 1, 800 000 ml @ 100 mls/hr IV . Q10H [facility] Rx#:[id number] Sodium Chloride 0.9% 500 999 ml 1,000 ml @ 999 mls/hr IV .Q1H1M [facility] Rx#: [id number] Oral 240 Output: Urine 400 Other: Voiding Method Toilet Toilet Toilet # Voids 1 1 Weight 49.895 kg 49.7 kg 49.7 kg GENERAL: Thin pleasant and in no acute distress. HEAD: Atraumatic, normocephalic. EYES: Pupils equal round and reactive to light, extraocular movements intact, sclera anicteric, conjunctiva are normal. ENT:nares patent, oropharynx clear without exudates. Moist mucous membranes. NECK: Normal range of motion, supple without lymphadenopathy or JVD, no thyromegaly LUNGS: Breath sounds hoarse with decreased air exchange bilaterally. No active wheezes rales or crackles. HEART: Regular rate and rhythm without murmurs, rubs or gallops.S1S2 Normal ABDOMEN: Soft, nontender, normoactive bowel sounds. No guarding, no rebound. No masses appreciated. EXTREMITIES: Normal range of motion, no pitting or edema. No clubbing or cyanosis. NEUROLOGICAL: Cranial nerves II through XII grossly intact. Normal speech, normal gait. PSYCH: Normal mood, normal affect. SKIN: Warm, Dry, normal turgor, no rashes or lesions noted. Results CBC & Chem 7: 07/19/18 08:47 07/19/18 08:47 Labs: Abnormal Lab Results - Last 24 Hours (Table) 07/18/18 07/18/18 07/19/18 Range/Units 17:32 17:32 08:47 WBC (3.8-10.6) k/uL RBC (3.80-5.40) m/uL Hct (34.0-46.0) % Lymphocytes # 0.9 L (1.0-4.8) k/uL Sodium 121 L (137-145) mmol/L Potassium (3.5-5.1) mmol/L Chloride 81 L (98-107) mmol/L Creatinine 1.17 H (0.52-1.04) mg/dL Glucose 117 H (74-99) mg/dL Osmolality 260 L (280-301) mosm/kg 07/19/18 07/19/18 Range/Units 08:47 08:47 WBC 3.6 L (3.8-10.6) k/uL RBC 3.48 L (3.80-5.40) m/uL Hct 32.6 L (34.0-46.0) % Lymphocytes # 0.8 L (1.0-4.8) k/uL Sodium 125 L (137-145) mmol/L Potassium 3.3 L (3.5-5.1) mmol/L Chloride 90 L (98-107) mmol/L Creatinine (0.52-1.04) mg/dL Glucose 105 H (74-99) mg/dL Osmolality (280-301) mosm/kg Chest x-ray: report reviewed (Chronic emphysema) Thrombosis Risk Factor Assmnt - DVT/VTE Prophylaxis DVT/VTE Prophylaxis: Pharmacologic Prophylaxis ordered - Choose All That Apply Any of the Below Risk Factors Present?: Yes Each Factor Represents 1 point: Abnormal pulmonary function (COPD) Other Risk Factors: Yes Each Risk Factor Represents 2 Points: Age 61-74 years Other congenital or acquired thrombophilia - If yes, enter type in comment: No Thrombosis Risk Factor Assessment Total Risk Factor Score: 3 Thrombosis Risk Factor Assessment Level: Moderate Risk Assessment and Plan (1) Chronic obstructive pulmonary disease Current Visit: Yes Status: Acute Code(s): J44.9 - CHRONIC OBSTRUCTIVE PULMONARY DISEASE, UNSPECIFIED SNOMED Code(s): 40223913 (2) Tobacco abuse Current Visit: Yes Status: Acute Code(s): Z72.0 - TOBACCO USE SNOMED Code(s): 593532214 (3) Essential (primary) hypertension Current Visit: Yes Status: Acute Code(s): I10 - ESSENTIAL (PRIMARY) HYPERTENSION SNOMED Code(s): 04279548 (4) Paroxysmal atrial fibrillation Current Visit: Yes Status: Acute Code(s): I48.0 - PAROXYSMAL ATRIAL FIBRILLATION SNOMED Code(s): 865972253 (5) Hypokalemia Current Visit: Yes Status: Acute Code(s): E87.6 - HYPOKALEMIA SNOMED Code(s): 08587760 (6) Dorsalgia of lumbar region Current Visit: Yes Status: Acute Code(s): M54.5 - LOW BACK PAIN SNOMED Code(s): 676044947 (7) Mixed hyperlipidemia Current Visit: Yes Status: Acute Code(s): E78.2 - MIXED HYPERLIPIDEMIA SNOMED Code(s): 363920589 (8) Hyponatremia Current Visit: Yes Status: Acute Code(s): E87.1 - HYPO-OSMOLALITY AND HYPONATREMIA SNOMED Code(s): 92770766 (9) Hypotension Current Visit: Yes Status: Acute Code(s): I95.9 - HYPOTENSION, UNSPECIFIED SNOMED Code(s): 45328332 Plan: Cardiology is artery been consult in for her paroxysmal atrial fibrillation. I'll consult nephrology regarding her hyponatremia, her diuretic use, per I'll order CT chest with contrast to evaluate occult malignancy, due to her long-standing history of COPD. Add Spiriva. We will consult recommendations. Complete her med rec and restart her pain meds if needed. Continue Elequis started by cardiology. Add Pepcid for GI prophylaxis. Repeat labs in a.m. She'll be reevaluated next 24 hours.
[2018-07-19] MEDS ORDERED: RX INFO: IV CONTRAST WAS GIVEN 1 EACH MISC MISCELLANE PRN (12:21)
[2018-07-19] MEDS ORDERED: IPRATROPIUM 0.5 MG/2.5 ML NEBU INHALATION PRN (12:21)
[2018-07-19] MEDS: LISINOPRIL 20 MG TAB PO SCH (12:36)
[2018-07-19] MEDS: FAMOTIDINE 20 MG TAB PO SCH (12:36)
[2018-07-19] MEDS: PANTOPRAZOLE 40 MG TABLET PO SCH (15:47)
[2018-07-19] MEDS: amLODIPine 5 MG TAB PO SCH (15:47)
--- NOTE | 2018-07-19 17:21 | ECHOF ---
Referral Reason:afib MEASUREMENTS -------- HEIGHT: 162.6 cm WEIGHT: 49.4 kg BP: 146/68 IVSd: 0.9 cm (0.6 - 1.1) LVIDd: 3.2 cm (3.9 - 5.3) LVPWd: 0.9 cm (0.6 - 1.1) IVSs: 1.5 cm LVIDs: 1.6 cm LVPWs: 1.4 cm RVIDd: 2.8 cm (< 3.3) Ao Diam: 2.7 cm (2.0 - 3.7) LA Diam: 2.9 cm (2.7 - 3.8) AV Cusp: 1.9 cm (1.5 - 2.6) EPSS: 0.2 cm MV E [place]: 0.75 m/s MV DecT: 208 ms MV A [place]: 0.64 m/s MV E/A Ratio: 1.18 RAP: 5.00 mmHg RVSP: 19.26 mmHg MV EF SLOPE: 34.99 mm/s (70 - 150) MV EXCURSION: 11.11 mm (> 18.000) FINDINGS -------- Sinus rhythm. This was a technically difficult study with suboptimal views. The left ventricular size is normal. Left ventricular wall thickness is normal. Overall left vent ricular systolic function is normal with, an EF between 55 - 60 %. The right ventricle is normal in size. The left atrial size is normal. The right atrial size is normal. Lumason used Aortic valve is trileaflet and is mildly thickened. There is trace mitral regurgitation. Trace tricuspid regurgitation present. The right ventricular systolic pressure, as measured by Dopp ler, is 19.26mmHg. There is no pulmonic regurgitation present. The aortic root size is normal. Normal inferior vena cava with normal inspiratory collapse consistent with estimated right atrial pre ssure of 5 mmHg. There is a small, generalized pericardial effusion present. CONCLUSIONS -------- 1. Sinus rhythm. 2. This was a technically difficult study with suboptimal views. 3. The left ventricular size is normal. 4. Left ventricular wall thickness is normal. 5. Overall left ventricular systolic function is normal with, an EF between 55 - 60 %. 6. The right ventricle is normal in size. 7. The left atrial size is normal. 8. The right atrial size is normal. 9. Lumason used 10. Aortic valve is trileaflet and is mildly thickened. 11. There is trace mitral regurgitation. 12. Trace tricuspid regurgitation present. 13. The right ventricular systolic pressure, as measured by Doppler, is 19.26mmHg. 14. There is no pulmonic regurgitation present. 15. The aortic root size is normal. 16. Normal inferior vena cava with normal inspiratory collapse consistent with estimated right atrial pressure of 5 mmHg. 17. There is a small, generalized pericardial effusion present. CRATE BUILDER: Tete Leary RDCS
[2018-07-19] MEDS: NICOTINE 21MG/24HR PATCH TRANSDERM SCH (19:50)
[2018-07-19] MEDS: HYDROcodone/APAP 7.5-325MG 1 EACH TAB PO PRN (23:09)
[2018-07-20] MEDS: SODIUM CHLORIDE 0.9% 1,000 ML IV SCH ×3 (01:18→16:06)
[2018-07-20] MEDS: PANTOPRAZOLE 40 MG TABLET PO SCH ×2 (06:11→16:20)
[2018-07-20 06:55] LABS: Basophils % (A) 1 %; Eosinophils # (A) 0.2 k/uL (0-0.7); Eosinophils % (A) 7 %; HCT 32.6 % (34.0-46.0); HGB 10.9 gm/dL (11.4-16.0); Lymphocytes # (A) 1.4 k/uL (1.0-4.8); Lymphocytes % (A) 40 %; MCHC 33.5 g/dL (31.0-37.0); MCV 95.5 fL (80.0-100.0); Mean Platelet Volume 8.3; Monocytes # (A) 0.3 k/uL (0-1.0); Monocytes % (A) 10 %; Neutrophils # (A) 1.4 k/uL (1.3-7.7); Neutrophils % (A) 40 %; Platelet Count 206 k/uL (150-450); RBC 3.41 m/uL (3.80-5.40); RDW 12.9 % (11.5-15.5); WBC 3.5 k/uL (3.8-10.6)
[2018-07-20 07:13] LABS: Anion Gap 3 mmol/L; Blood Urea Nitrogen 11 mg/dL (7-17); Calcium 8.4 mg/dL (8.4-10.2); Carbon Dioxide 28 mmol/L (22-30); Chloride 100 mmol/L (98-107); Glucose 81 mg/dL (74-99); Potassium 4.3 mmol/L (3.5-5.1); Sodium 131 mmol/L (137-145)
[2018-07-20] MEDS: ALBUTEROL NEBULIZED 2.5 MG/3 ML INHALATION SCH ×2 (07:27→21:08)
[2018-07-20] MEDS: SYMBICORT 160-4.5 MCG INHALER INHALATION SCH ×2 (07:27→21:08)
--- NOTE | 2018-07-20 08:48 | CT ---
EXAMINATION TYPE: CT chest w con DATE OF EXAM: 07/20/2018 COMPARISON: CT neck and chest April 25, 2010. HISTORY: Difficulty breathing and cough, evaluate for occult malignancy. CT DLP: 199.8 mGycm. Automated Exposure Control for Dose Reduction was Utilized. TECHNIQUE: CT scan of the thorax is performed following with IV Contrast, patient injected with 100 mL of Isovue 300. FINDINGS: LUNGS: There is mild parenchymal fibrosis in the lung bases just above diaphragm. There is fairly mod erate bilateral central peribronchial wall thickening extending into lower lobe bronchi. No suspiciou s focal nodules or masses are present. No pleural effusion or pneumothorax is noted. MEDIASTINUM: There are no greater than 1 cm hilar or mediastinal lymph nodes. No cardiomegaly or pe ricardial effusion is seen. There is moderate plaque of the aorta extending into branch vessels. OTHER: Cholecystectomy clips are noted. Asymmetric atrophy right kidney is seen. Slight scoliotic cur vature is seen with moderate multilevel spurring. IMPRESSION: 1. No suspicious masses or adenopathy. 2. Moderate central peribronchial wall thickening, correlate for acute or chronic bronchitis. 3. Asymmetric volume loss and atrophy right kidney noted. I see no prior CT or ultrasound abdomen bahman dy to correlate if this is known finding.
[2018-07-20] MEDS: ATORVASTATIN 40 MG TAB PO SCH (09:36)
[2018-07-20] MEDS: APIXABAN 5 MG TAB PO SCH ×2 (09:36→21:31)
[2018-07-20] MEDS: MECLIZINE 25 MG TAB PO SCH (09:36)
[2018-07-20] MEDS: FAMOTIDINE 20 MG TAB PO SCH (09:36)
[2018-07-20] MEDS: FLUDROCORTISONE 0.1 MG TAB PO SCH (10:09)
[2018-07-20] MEDS: LISINOPRIL 20 MG TAB PO SCH (12:27)
[2018-07-20] MEDS: amLODIPine 5 MG TAB PO SCH (12:27)
[2018-07-20] MEDS ORDERED: hydrALAZINE HCL 20 MG/ML 1 ML VIAL IVP PRN (14:01)
--- NOTE | 2018-07-20 14:04 | P.NPCON ---
History of Present Illness - Reason for Consult acute renal failure, hyponatremia - History of Present Illness Reason for consultation: Hyponatremia and right renal atrophy History of present illness: Patient is a 72-year-old male seen in consultation for hyponatremia and right renal atrophy. Patient presented to the hospital with dizziness. No syncopal episodes or falls. Patient's sodium level was 121 on admission and creatinine was 1.17. She's currently maintained on normal saline at 100 mL an hour. Renal function is back to baseline. Sodium level has been gradually improving and is up to 131 as of this morning. Patient is noted to have orthostatic hypotension. She was started on Florinef today. She denies chest pain or shortness of breath. Denies any prior history of kidney disease. Good urine output. No hematuria or dysuria. Denies use of nonsteroidals. No family history of renal disease. No history of diabetes. Patient states she felt dizzy again this morning when she stood up. She does admit to drinking 8 glasses of water every day. Patient states appetite has been just fair. She is not on any thiazide diuretics. Vital signs are stable. General: The patient appeared well nourished and normally developed. HEENT: Head exam is unremarkable. Neck is without jugular venous distension. LUNGS: Lungs are clear to auscultation and percussion. Breath sounds decreased. HEART: Rate and Rhythm are regular. First and second heart sounds normal. No murmurs, rubs or gallops. ABDOMEN: Abdominal exam reveals normal bowel sounds. Non-tender and non- distended. No evidence of peritonitis. EXTREMITITES: No clubbing, cyanosis, or edema. Past Medical History Past Medical History: Cancer ([place]), COPD, GERD/Reflux, Hyperlipidemia, Hypertension, Osteoarthritis (OA), Thyroid Disorder (Unknown type) Additional Past Medical History / Comment(s): occ. DIZZINESS, CHRONIC BACK PAIN History of Any Multi-Drug Resistant Organisms: None Reported Past Surgical History: Back Surgery, Cholecystectomy Additional Past Surgical History / Comment(s): triple endo January 2018 for gallbladder removal Past Anesthesia/Blood Transfusion Reactions: No Reported Reaction Past Psychological History: Anxiety, Depression Smoking Status: Current every day smoker Past Alcohol Use History: Occasional Additional Past Alcohol Use History / Comment(s): has smoked for over FOR 45 YRS.Has cut down to 10 cigs a day Past Drug Use History: None Reported - Past Family History Mother Family Medical History: Unable to Obtain Additional Family Medical History / Comment(s): WAS ADOPTED. Medications and Allergies Home Medications Medication Instructions Recorded Confirmed Type Albuterol Sulfate [Proair Hfa] 1 puff INHALATION RT-BID 12/03/15 07/18/18 History Diazepam 5 mg PO Q8HR PRN 12/03/15 07/18/18 History Meclizine [Antivert] 25 mg PO DAILY 12/03/15 07/18/18 History OLANZapine [ZyPREXA] 5 mg PO DAILY 12/03/15 07/18/18 History Ranitidine HCl [Zantac] 150 mg PO DAILY 12/03/15 07/18/18 History Omeprazole [PriLOSEC] 20 mg PO AC-BID 08/26/16 07/18/18 History Budesonide/Formoterol Fumarate 2 puff INHALATION RT-BID 07/18/18 07/18/18 History [Symbicort 160-4.5 Mcg Inhaler] HYDROcodone/APAP 7.5-325MG [[place] 1 tab PO Q6H PRN 07/18/18 07/18/18 History 7.5-325] Hydrochlorothiazide [Hydrodiuril] 25 mg PO DAILY 07/18/18 07/18/18 History Simvastatin [Zocor] 20 mg PO DAILY 07/18/18 07/18/18 History Allergies Allergy/AdvReac Type Severity Reaction Status Date / Time No Known Allergies Allergy Verified 07/18/18 17:32 Physical Exam Vitals: Vital Signs Temp Pulse Pulse Pulse Pulse Pulse Resp 07/20/18 11:55 98 F 86 16 07/20/18 09:12 81 07/20/18 08:35 74 86 69 16 07/20/18 07:38 78 07/20/18 07:28 77 07/20/18 04:00 97.9 F 67 16 07/20/18 00:00 98.2 F 70 18 07/19/18 20:00 98.3 F 82 91 64 16 07/19/18 18:58 76 07/19/18 18:41 72 07/19/18 15:39 98.5 F 74 16 BP BP BP BP Pulse Ox 07/20/18 11:55 115/58 95 07/20/18 09:12 138/68 97 07/20/18 08:35 140/67 113/57 141/62 97 07/20/18 07:38 07/20/18 07:28 07/20/18 04:00 127/70 97 07/20/18 00:00 113/62 96 07/19/18 20:00 89/51 93/55 99/55 100 07/19/18 18:58 07/19/18 18:41 07/19/18 15:39 143/71 99 Intake and Output 07/19/18 07/20/18 07/20/18 22:59 06:59 14:59 Intake Total 1040 Balance 1040 Intake: Intake, IV Titration 800 Amount Sodium Chloride 0.9% 1, 800 000 ml @ 100 mls/hr IV . Q10H SEAN Rx#:[id number] Oral 240 Other: Voiding Method Toilet Toilet Toilet # Voids 1 1 Weight 51.6 kg Results - Lab Results Most recent lab results Calcium 8.4 mg/dL (8.4-10.2) 07/20/18 06:44 Magnesium 1.7 mg/dL (1.6-2.3) 07/19/18 08:47 07/20/18 06:44 07/20/18 06:44 Assessment and Plan Plan: Assessment: 1. Hypovolemic hyponatremia improving with IV hydration. Also component of poor solute intake as urine osmolality is quite low at 196. 2. Mild acute kidney injury mostly prerenal improved with IV hydration. 3. Dizziness secondary to orthostatic hypotension. 4. ?Right renal atrophy. Plan: I will decrease rate of normal saline to 75 mL an hour. Maintain Florinef. Check orthostatic vital signs every shift. Hold antihypertensives. I did order as needed hydralazine to be given if standing systolic blood pressure greater than 150. I will add cortisol level to this morning's labs. Encouraged oral intake. Add 1500 mL fluid restriction. Repeat electrolytes in the morning. Thank you for the consultation. I will continue to follow the patient with you during her hospital stay.
--- NOTE | 2018-07-20 14:31 | US ---
EXAMINATION TYPE: US kidneys/renal and bladder DATE OF EXAM: 07/20/2018 COMPARISON: NONE CLINICAL HISTORY: R atrophy kidney. Right renal atrophy, exam done portable. EXAM MEASUREMENTS: Right Kidney: 6.8 x 2.9 x 3.2 cm Left Kidney: 11.2 x 5.3 x 5.4 cm Right Kidney: atrophic, no hydronephrosis or nephrolithiasis seen Left Kidney: no hydronephrosis or nephrolithiasis seen Bladder: wnl Bilateral Jets seen: no IMPRESSION: Right kidney is atrophic. Correlate for chronic medical renal disease.
--- NOTE | 2018-07-20 16:13 | P.PN ---
Subjective Progress Note Date: 07/20/18 This is a pleasant 72-year-old female with history of COPD, nicotine dependence, patient has smoked for over 40 years, history of hypertension, she does state that she was told several years ago to have some issues with her thyroid, she is not on any thyroid medication. Patient did undergo an aortogram by Dr. Javed in 2017 which revealed right carotid artery stenosis of approximately 70%. She presented to the hospital with symptoms of dizziness, and feeling somewhat unsteady when she walks, she feels that at times she could fall over. She has been experiencing these symptoms off and on for the past several months. According to the patient, her appetite has also been very poor and she has not been eating well over the past several months. Her weight is down over 20 pounds over the past number of months. Patient also states at times that she experiences some shortness of breath. She also is complaining of some discomfort in the right upper quadrant of her abdomen, very tender on palpation. Her chest x-ray on admission here showed chronic emphysema changes without any acute pulmonary process. Her EKG on admission showed a normal sinus rhythm with a first-degree AV block. Subsequent to that patient did have a repeat EKG performed because she went into atrial fibrillation. At the time of my examination this morning she is back in a normal sinus rhythm. Blood pressure 146/68, heart rate in the 70s, 100% on room air, she is afebrile. White blood cell count on admission 5.7, 3.6 this morning. Hemoglobin 14.4 on admission, 11.6 this morning, platelet count 302 on admission, 216 this morning. Her sodium on admission was 121 and is 125 this morning, potassium on admission 3.8, this morning is 3.3. Creatinine 0.7 with a BUN of 10. Calcium is 8.5, magnesium this morning is 1.7. Troponin 0.012, AST and ALT are normal bilirubin is also normal. At the time of my examination this morning, patient just complains of feeling tired, she denies any dizziness at present, no palpitations no chest discomfort or shortness of breath. 07/20/2018 Patient was seen and examined this morning, she is feeling better. Echo cardiac gram with Doppler study revealed a normal left ventricular systolic function. Patient had significant orthostatics, was initiated on Florinef. We'll decrease her dose of lisinopril to 10 mg daily. Objective - Vital Signs Vital signs: Vital Signs Temp 98 F 07/20/18 11:55 Pulse 86 07/20/18 11:55 Resp 16 07/20/18 11:55 BP 115/58 07/20/18 11:55 Pulse Ox 95 07/20/18 11:55 Intake & Output 07/19/18 07/20/18 07/20/18 18:59 06:59 18:59 Intake Total 720 800 Output Total 400 Balance 320 800 Weight 49.7 kg 51.6 kg Intake: Intake, IV Titration 800 Amount Sodium Chloride 0.9% 1, 800 000 ml @ 100 mls/hr IV . Q10H SEAN Rx#:[id number] Oral 720 Output: Urine 400 Other: Voiding Method Toilet Toilet Toilet # Voids 1 1 - Exam PHYSICAL EXAMINATION: GENERAL: Frail 72-year-old female in no acute distress at the time of my examination HEENT: Head is atraumatic, normocephalic. Pupils equal, round. Sclera anicteric. Conjunctiva are clear. Mucous membranes of the mouth are moist. Neck is supple. There is no elevated jugular venous pressure. Significant right-sided carotid bruit is heard. HEART EXAMINATION: Heart S1 and S2 with soft systolic murmur is heard CHEST EXAMINATION: Lungs reveal decreased air exchange throughout ABDOMEN: Soft, nontender. Bowel sounds are heard. No organomegaly noted. EXTREMITIES: 2+ peripheral pulses with no evidence of peripheral edema and no calf tenderness noted. NEUROLOGIC patient is awake, alert and oriented 3. . - Labs CBC & Chem 7: 07/20/18 06:44 07/20/18 06:44 Labs: Abnormal Lab Results - Last 24 Hours (Table) 07/20/18 07/20/18 Range/Units 06:44 06:44 WBC 3.5 L (3.8-10.6) k/uL RBC 3.41 L (3.80-5.40) m/uL Hgb 10.9 L (11.4-16.0) gm/dL Hct 32.6 L (34.0-46.0) % Sodium 131 L (137-145) mmol/L Assessment and Plan Plan: Assessment and plan #1 symptoms of dizziness with associated weakness and unsteadiness. #2 hyponatremia #3 paroxysmal atrial fibrillation, appears to be new for the patient #4 hypertension #5 nicotine dependence #6 COPD #7 GERD #8 hyperlipidemia #9 right internal carotid artery disease, patient underwent an aortogram in [address] Javed #10 hypokalemia Plan Echocardiogram with Doppler study was performed which revealed a normal left ventricular systolic function. Patient did have significant orthostatics and for this reason Florinef had been added. We will also recommend bilateral VALARIE hose stockings, decrease lisinopril to 10 mg by mouth daily. DNP note has been reviewed, I agree with a documented findings and plan of care. Patient was seen and examined.
[2018-07-21] MEDS: NICOTINE 21MG/24HR PATCH TRANSDERM SCH ×2 (02:07→21:36)
[2018-07-21] MEDS: PANTOPRAZOLE 40 MG TABLET PO SCH ×2 (06:27→16:49)
[2018-07-21] MEDS: SODIUM CHLORIDE 0.9% 1,000 ML IV SCH ×2 (06:27→16:49)
--- NOTE | 2018-07-21 07:04 | P.PN ---
Subjective Progress Note Date: 07/20/18 This is a pleasant 72-year-old white female, patient of my partner, Dr. Randell Virk. She came to the emergency room with the dizziness and fatigue for the past several days. She reports the dizziness and fatigue and been ongoing longer than this. She does have a history of COPD and does report some co ughing, that is not her main complaint. She denies any chest pains, pressures. She does have some shortness of breath. She is instructed smoking history. She is generally being rehydrated. Overnight she began experiencing atrial fibrillation on the monitor which last approximately 1 hour, resolved on its own. Today she feels a bit better, denies any significant complaints other than some mild fatigue. Laboratory studies show a hyponatremia 121. Thyroid screening was negative. Troponin 1 was negative. Serum osmolality is low at 260 and urine osmolality is 196. Spot urine sodium is pending. 07/20/2018 positive for symptomatic orthostatic hypotension. Reports dizziness with standing. Patient has already received Norvasc and lisinopril this morning, placed on hold. Florinef added to med regime. Patient reports she has lost weight. Ultrasound reporting atrophied right kidney, possible new finding. Creatinine 0.76, had been elevated on admission at 1.17. CT reported no mass, no adenopathy, peribronchial thickening, acute/chronic bronchitis. Reports productive cough at time with white sputum. New-onset proximal A. fib, placed on Eliquis for anticoagulation.luid hydration with Sodium improving up to 131( at home patient was on hydrochlorothiazide).patient reports she drinks 8 glasses of water a day .Echo reporting EF 55-60%. Denies chest pain, palpitations or increased shortness of breath. Denies nausea vomiting or diarrhea. Objective - Vital Signs Vital signs: Vital Signs Temp 98 F 07/20/18 11:55 Pulse 86 07/20/18 11:55 Resp 16 07/20/18 11:55 BP 115/58 07/20/18 11:55 Pulse Ox 95 07/20/18 11:55 Intake & Output 07/19/18 07/20/18 07/20/18 18:59 06:59 18:59 Intake Total 720 800 Output Total 400 Balance 320 800 Weight 49.7 kg 51.6 kg Intake: Intake, IV Titration 800 Amount Sodium Chloride 0.9% 1, 800 000 ml @ 100 mls/hr IV . Q10H [facility] Rx#:[id number] Oral 720 Output: Urine 400 Other: Voiding Method Toilet Toilet Toilet # Voids 1 1 - Exam GENERAL: Thin pleasant, sitting up in bed, alert and oriented 3 and in no acute distress. HEAD: Atraumatic, normocephalic. EYES: Pupils equal round and reactive to light, extraocular movements intact, s clera anicteric, conjunctiva are normal. ENT:nares patent, oropharynx clear without exudates. Moist mucous membranes. NECK: Normal range of motion, supple without lymphadenopathy or JVD, no thyromegaly LUNGS: Breath sounds hoarse with decreased air exchange bilaterally. No active wheezes rales or crackles. HEART: Regular rate and rhythm with Systolic murmur, no rubs or gallops.S1S2 Normal ABDOMEN: Soft, nontender, normoactive bowel sounds. No guarding, no rebound. No masses appreciated. EXTREMITIES: Normal range of motion, no pitting or edema. No clubbing or cyanosis. NEUROLOGICAL: Cranial nerves II through XII grossly intact. Normal speech, normal gait. PSYCH: Normal mood, normal affect. SKIN: Warm, Dry, normal turgor, no rashes or lesions noted. - Labs CBC & Chem 7: 07/20/18 06:44 07/20/18 06:44 Labs: Abnormal Lab Results - Last 24 Hours (Table) 07/20/18 07/20/18 Range/Units 06:44 06:44 WBC 3.5 L (3.8-10.6) k/uL RBC 3.41 L (3.80-5.40) m/uL Hgb 10.9 L (11.4-16.0) gm/dL Hct 32.6 L (34.0-46.0) % Sodium 131 L (137-145) mmol/L Assessment and Plan Assessment: (1) Chronic obstructive pulmonary disease Current Visit: Yes Status: Acute Code(s): J44.9 - CHRONIC OBSTRUCTIVE PULMONARY DISEASE, UNSPECIFIED SNOMED Code(s): 11037524 (2) Tobacco abuse Current Visit: Yes Status: Acute Code(s): Z72.0 - TOBACCO USE SNOMED Code(s): 653455360 (3) Essential (primary) hypertension Current Visit: Yes Status: Acute Code(s): I10 - ESSENTIAL (PRIMARY) HYPERTENSION SNOMED Code(s): 50258537 (4) Paroxysmal atrial fibrillation Current Visit: Yes Status: Acute Code(s): I48.0 - PAROXYSMAL ATRIAL FIBRILLATION SNOMED Code(s): 446827313 (5) Hypokalemia Current Visit: Yes Status: Acute Code(s): E87.6 - HYPOKALEMIA SNOMED Code(s): 11478223 (6) Dorsalgia of lumbar region Current Visit: Yes Status: Acute Code(s): M54.5 - LOW BACK PAIN SNOMED Code(s): 739533469 (7) Mixed hyperlipidemia Current Visit: Yes Status: Acute Code(s): E78.2 - MIXED HYPERLIPIDEMIA SNOMED Code(s): 081287027 (8) Hyponatremia,, hypervolemic, secondary to hydrochlorothiazide which has been discontinued. Urine osmolality 196. Current Visit: Yes Status: Acute Code(s): E87.1 - HYPO-OSMOLALITY AND HYPONATREMIA SNOMED Code(s): 22100527 (9) Hypotension, orthostatic Current Visit: Yes Status: Acute Code(s): I (10) acute renal failure, prerenal, improved with IV fluid hydration (11) atrophy right kidney, workup in progress Plan: Continue on current medication regime ,monitoring and symptomatic treatment. Fluid restrictions. Maintain gentle IV fluid hydration. Florinef added for orthostatic hypotension. Continue with orthostatic vital signs every shift, may need to increase Florinef dose. Norvasc and lisinopril placed on hold, patient states she has lost weight recently and will further adjust antihypertensives accordingly. Possible new atrophy of right kidney identified on ultrasound, nephrology consulted. Possibly use hydralazine for hypertension. Eliquis for anticoagulation as per cardiology. The impression and plan of care has been dictated as directed. : I performed a history and examination of this patient, discussed the same with the dictator. I agree with the dictator's note ,documented as a scribe. Any additional findings or plans will be noted.
[2018-07-21 07:32] LABS: Anion Gap 5 mmol/L; Blood Urea Nitrogen 13 mg/dL (7-17); Calcium 8.5 mg/dL (8.4-10.2); Carbon Dioxide 29 mmol/L (22-30); Chloride 99 mmol/L (98-107); Glucose 81 mg/dL (74-99); Magnesium 1.6 mg/dL (1.6-2.3); Potassium 4.3 mmol/L (3.5-5.1); Sodium 133 mmol/L (137-145)
[2018-07-21] MEDS ORDERED: LISINOPRIL 10 MG TAB PO SCH (09:00)
[2018-07-21] MEDS: FAMOTIDINE 20 MG TAB PO SCH (09:12)
[2018-07-21] MEDS: MECLIZINE 25 MG TAB PO SCH (09:12)
[2018-07-21] MEDS: APIXABAN 5 MG TAB PO SCH ×2 (09:12→21:36)
[2018-07-21] MEDS: ATORVASTATIN 40 MG TAB PO SCH (09:12)
[2018-07-21] MEDS: FLUDROCORTISONE 0.1 MG TAB PO SCH (09:12)
[2018-07-21] MEDS: ALBUTEROL NEBULIZED 2.5 MG/3 ML INHALATION SCH ×2 (09:34→20:59)
[2018-07-21] MEDS: SYMBICORT 160-4.5 MCG INHALER INHALATION SCH ×2 (09:35→20:59)
[2018-07-21] MEDS: HYDROcodone/APAP 7.5-325MG 1 EACH TAB PO PRN (11:24)
[2018-07-21 11:56] VITALS: BMI 19.5
[2018-07-21] MEDS: OLANZapine 5 MG TAB PO SCH (12:33)
[2018-07-21] MEDS: MAGNESIUM SULFATE-D5W PMX 1 GM in DEXTROSE/WATER 1 100ML.BAG IVPB SCH ×2 (12:36→14:03)
[2018-07-21] MEDS ORDERED: MAGNESIUM SULFATE-D5W PMX 1 GM in DEXTROSE/WATER 1 100ML.BAG IVPB SCH (13:00)
--- NOTE | 2018-07-21 13:02 | P.PN ---
Subjective Patient is seen in follow-up for hyponatremia. Sodium level is gradually improving with IV hydration. Still complains of dizziness at times but much improved since admission. She is maintained on Florinef. Antihypertensives have been discontinued. Cortisol level from yesterday afternoon was 6. Good urine output. No hematuria or dysuria. Right kidney noted to be atrophic. Vital signs are stable. General: The patient appeared well nourished and normally developed. HEENT: Head exam is unremarkable. Neck is without jugular venous distension. LUNGS: Lungs are clear to auscultation and percussion. Breath sounds decreased. HEART: Rate and Rhythm are regular. First and second heart sounds normal. No murmurs, rubs or gallops. ABDOMEN: Abdominal exam reveals normal bowel sounds. Non-tender and non- distended. No evidence of peritonitis. EXTREMITITES: No clubbing, cyanosis, or edema. Objective - Vital Signs Vital signs: Vital Signs Temp 97.5 F L 07/21/18 11:27 Pulse 80 07/21/18 11:27 Resp 18 07/21/18 11:27 BP 119/58 07/21/18 11:27 Pulse Ox 98 07/21/18 11:27 Intake & Output 07/20/18 07/21/18 07/21/18 18:59 06:59 18:59 Intake Total 1180 200 120 Output Total 750 Balance 430 200 120 Weight 51.6 kg 51.6 kg Intake: IV 800 Sodium Chloride 0.9% 1, 800 000 ml @ 100 mls/hr IV . Q10H [facility] Rx#:[id number] Oral 380 200 120 Output: Urine 750 Other: Voiding Method Toilet Toilet Toilet # Voids 1 1 - Labs CBC & Chem 7: 07/20/18 06:44 07/21/18 06:28 Labs: Abnormal Lab Results - Last 24 Hours (Table) 07/21/18 Range/Units 06:28 Sodium 133 L (137-145) mmol/L Assessment and Plan Plan: Assessment: 1. Hypovolemic hyponatremia improving with IV hydration. Also component of poor solute intake as urine osmolality is quite low at 196. Improving. 2. Mild acute kidney injury mostly prerenal improved with IV hydration. GFR back to baseline. 3. Dizziness secondary to orthostatic hypotension. Improved. 4. Right renal atrophy. Plan: Maintain normal saline at 75 mL an hour. Maintain Florinef. Continue to monitor orthostatic vital signs. Hold antihypertensives. Hydralazine to be given if standing systolic blood pressure greater than 150. Replace magnesium. 2 g IV today. Encouraged oral intake. Maintain 1500 mL fluid restriction. Repeat electrolytes in the morning. Cortisol level a little on the lower side. Advised patient to follow-up with endocrinology to rule out potential adrenal insufficiency outpatient.
--- NOTE | 2018-07-21 15:06 | P.PN ---
Subjective Progress Note Date: 07/21/18 This is a pleasant 72-year-old white female, patient of my partner, Dr. Randell Virk. She came to the emergency room with the dizziness and fatigue for the past several days. She reports the dizziness and fatigue and been ongoing longer than this. She does have a history of COPD and does report some co ughing, that is not her main complaint. She denies any chest pains, pressures. She does have some shortness of breath. She is instructed smoking history. She is generally being rehydrated. Overnight she began experiencing atrial fibrillation on the monitor which last approximately 1 hour, resolved on its own. Today she feels a bit better, denies any significant complaints other than some mild fatigue. Laboratory studies show a hyponatremia 121. Thyroid screening was negative. Troponin 1 was negative. Serum osmolality is low at 260 and urine osmolality is 196. Spot urine sodium is pending. 07/20/2018 positive for symptomatic orthostatic hypotension. Reports dizziness with standing. Patient has already received Norvasc and lisinopril this morning, placed on hold. Florinef added to med regime. Patient reports she has lost weight. Ultrasound reporting atrophied right kidney, possible new finding. Creatinine 0.76, had been elevated on admission at 1.17. CT reported no mass, no adenopathy, peribronchial thickening, acute/chronic bronchitis. Reports productive cough at time with white sputum. New-onset proximal A. fib, placed on Eliquis for anticoagulation.luid hydration with Sodium improving up to 131( at home patient was on hydrochlorothiazide).patient reports she drinks 8 glasses of water a day .Echo reporting EF 55-60%. Denies chest pain, palpitations or increased shortness of breath. Denies nausea vomiting or diarrhea. 07/21/18 antihypertensives discontinued with Florinef initiated yesterday - significant improvement in orthostatic hypotension. Sodium continues to improve 133. Telemetry normal sinus rhythm. Teary-eyed and complains of dizziness with position changes, currently on home dose of Antivert. Patient has history of right carotid stenosis, reports she is scheduled to follow-up with Dr. Cat on 08/17/18. Complains of generalized weakness ambulating short distances. Evaluated by nephrology with recommendations noted. Magnesium 1.6, receiving supplementation. Objective - Vital Signs Vital signs: Vital Signs Temp 97.5 F L 07/21/18 11:27 Pulse 80 07/21/18 11:27 Resp 18 07/21/18 11:27 BP 119/58 07/21/18 11:27 Pulse Ox 98 07/21/18 11:27 Intake & Output 07/20/18 07/21/18 07/21/18 18:59 06:59 18:59 Intake Total 1180 200 360 Output Total 750 Balance 430 200 360 Weight 51.6 kg 51.6 kg Intake: IV 800 Sodium Chloride 0.9% 1, 800 000 ml @ 100 mls/hr IV . Q10H [facility] Rx#:[id number] Oral 380 200 360 Output: Urine 750 Other: Voiding Method Toilet Toilet Toilet # Voids 1 1 - Exam GENERAL: sitting up in bed, alert and oriented 3 and in no acute distress. Teary-eyed HEAD: Atraumatic, normocephalic. EYES: Pupils equal round and reactive to light, extraocular movements intact, sclera anicteric, conjunctiva are normal. ENT:nares patent, oropharynx clear without exudates. Moist mucous membranes. NECK: Normal range of motion, supple without lymphadenopathy or JVD, no thyromegaly LUNGS: Bilateral Breath sounds coarse with Bilateral bases diminished. No active wheezes rales or crackles. HEART: Regular rate and rhythm with Systolic murmur, no rubs or gallops.S1S2 Normal ABDOMEN: Soft, nontender, normoactive bowel sounds. No guarding, no rebound. No masses appreciated. EXTREMITIES: Normal range of motion, no pitting or edema. No clubbing or cyanosis. NEUROLOGICAL: Cranial nerves II through XII grossly intact. No focal deficits SKIN: Warm, Dry, normal turgor, no rashes or lesions noted. - Labs CBC & Chem 7: 07/20/18 06:44 07/21/18 06:28 Labs: Abnormal Lab Results - Last 24 Hours (Table) 07/21/18 Range/Units 06:28 Sodium 133 L (137-145) mmol/L Assessment and Plan Assessment: (1) Chronic obstructive pulmonary disease Current Visit: Yes Status: Acute Code(s): J44.9 - CHRONIC OBSTRUCTIVE PULMONARY DISEASE, UNSPECIFIED SNOMED Code(s): 74183369 (2) Tobacco abuse Current Visit: Yes Status: Acute Code(s): Z72.0 - TOBACCO USE SNOMED Code(s): 960639512 (3) Essential (primary) hypertension Current Visit: Yes Status: Acute Code(s): I10 - ESSENTIAL (PRIMARY) HYPE RTENSION SNOMED Code(s): 67565826 (4) Paroxysmal atrial fibrillation Current Visit: Yes Status: Acute Code(s): I48.0 - PAROXYSMAL ATRIAL FIBRILLATION SNOMED Code(s): 387310543 (5) Hypokalemia Current Visit: Yes Status: Acute Code(s): E87.6 - HYPOKALEMIA SNOMED Code(s): 43496438 (6) Dorsalgia of lumbar region Current Visit: Yes Status: Acute Code(s): M54.5 - LOW BACK PAIN SNOMED Code(s): 284744580 (7) Mixed hyperlipidemia Current Visit: Yes Status: Acute Code(s): E78.2 - MIXED HYPERLIPIDEMIA SNOMED Code(s): 414995851 (8) Hyponatremia,, hypervolemic, secondary to hydrochlorothiazide which has been discontinued. Urine osmolality 196. Current Visit: Yes Status: Acute Code(s): E87.1 - HYPO-OSMOLALITY AND HYPONATREMIA SNOMED Code(s): 35792927 (9) Hypotension, orthostatic Current Visit: Yes Status: Acute Code(s): I (10) acute renal failure, prerenal, improved with IV fluid hydration (11) atrophy right kidney, workup in progress (12) history of right carotid stenosis, follows with Dr. Cat (13) hypomagnesemia (14) mildly low cortisol level, rule out adrenal insufficiency, follow-up with endocrinology outpatient Plan: Continue on current medication regime ,Eliquis.monitoring and symptomatic treatment. Antihypertensives remain on hold. Maintain Fluid restrictions, Florinef. Zyprexa-home med resumed. ENT consulted. PT/OT/social work consulted regarding potential subacute rehab at discharge-patient agreeable to. Discharge planning in progress for tomorrow. The impression and plan of care has been dictated as directed. : I performed a history and examination of this patient, discussed the same with the dictator. I agree with the dictator's note ,documented as a scribe. Any additional findings or plans will be noted.
--- NOTE | 2018-07-21 15:21 | P.PN ---
Subjective Progress Note Date: 07/21/18 This is a pleasant 72-year-old female with history of COPD, nicotine dependence, patient has smoked for over 40 years, history of hypertension, she does state that she was told several years ago to have some issues with her thyroid, she is not on any thyroid medication. Patient did undergo an aortogram by Dr. Javed in 2017 which revealed right carotid artery stenosis of approximately 70%. She presented to the hospital with symptoms of dizziness, and feeling somewhat unsteady when she walks, she feels that at times she could fall over. She has been experiencing these symptoms off and on for the past several months. According to the patient, her appetite has also been very poor and she has not been eating well over the past several months. Her weight is down over 20 pounds over the past number of months. Patient also states at times that she experiences some shortness of breath. She also is complaining of some discomfort in the right upper quadrant of her abdomen, very tender on palpation. Her chest x-ray on admission here showed chronic emphysema changes without any acute pulmonary process. Her EKG on admission showed a normal sinus rhythm with a first-degree AV block. Subsequent to that patient did have a repeat EKG performed because she went into atrial fibrillation. At the time of my examination this morning she is back in a normal sinus rhythm. Blood pressure 146/68, heart rate in the 70s, 100% on room air, she is afebrile. White blood cell count on admission 5.7, 3.6 this morning. Hemoglobin 14.4 on admission, 11.6 this morning, platelet count 302 on admission, 216 this morning. Her sodium on admission was 121 and is 125 this morning, potassium on admission 3.8, this morning is 3.3. Creatinine 0.7 with a BUN of 10. Calcium is 8.5, magnesium this morning is 1.7. Troponin 0.012, AST and ALT are normal bilirubin is also normal. At the time of my examination this morning, patient just complains of feeling tired, she denies any dizziness at present, no palpitations no chest discomfort or shortness of breath. 07/20/2018 Patient was seen and examined this morning, she is feeling better. Echo cardiac gram with Doppler study revealed a normal left ventricular systolic function. Patient had significant orthostatics, was initiated on Florinef. We'll decrease her dose of lisinopril to 10 mg daily. 07/21/2018 Patient was seen and examined this morning, still complains of feeling lightheaded and dizzy, however mildly improved. We will discontinue the MARANDA inhibitor completely and continue the rest of her medications. Objective - Vital Signs Vital signs: Vital Signs Temp 97.5 F L 07/21/18 11:27 Pulse 80 07/21/18 11:27 Resp 18 07/21/18 11:27 BP 119/58 07/21/18 11:27 Pulse Ox 98 07/21/18 11:27 Intake & Output 07/20/18 07/21/18 07/21/18 18:59 06:59 18:59 Intake Total 1180 200 360 Output Total 750 Balance 430 200 360 Weight 51.6 kg 51.6 kg Intake: IV 800 Sodium Chloride 0.9% 1, 800 000 ml @ 100 mls/hr IV . Q10H [facility] Rx#:[id number] Oral 380 200 360 Output: Urine 750 Other: Voiding Method Toilet Toilet Toilet # Voids 1 1 1 - Exam PHYSICAL EXAMINATION: GENERAL: Frail 72-year-old female in no acute distress at the time of my examination HEENT: Head is atraumatic, normocephalic. Pupils equal, round. Sclera anict jennifer. Conjunctiva are clear. Mucous membranes of the mouth are moist. Neck is supple. There is no elevated jugular venous pressure. Significant right-sided carotid bruit is heard. HEART EXAMINATION: Heart S1 and S2 with soft systolic murmur is heard CHEST EXAMINATION: Lungs reveal decreased air exchange throughout ABDOMEN: Soft, nontender. Bowel sounds are heard. No organomegaly noted. EXTREMITIES: 2+ peripheral pulses with no evidence of peripheral edema and no calf tenderness noted. NEUROLOGIC patient is awake, alert and oriented 3. . - Labs CBC & Chem 7: 07/20/18 06:44 07/21/18 06:28 Labs: Abnormal Lab Results - Last 24 Hours (Table) 07/21/18 Range/Units 06:28 Sodium 133 L (137-145) mmol/L Assessment and Plan Plan: Assessment and plan #1 symptoms of dizziness with associated weakness and unsteadiness. #2 hyponatremia #3 paroxysmal atrial fibrillation, appears to be new for the patient #4 hypertension #5 nicotine dependence #6 COPD #7 GERD #8 hyperlipidemia #9 right internal carotid artery disease, patient underwent an aortogram in [address] Javed #10 hypokalemia Plan Echocardiogram with Doppler study was performed which revealed a normal left ventricular systolic function. Discontinue lisinopril. We'll follow this patient along with you now on an as-needed basis only, please don't hesitate to call if you have any questions. DNP note has been reviewed, I agree with a documented findings and plan of care. Patient was seen and examined.
[2018-07-22] MEDS: PANTOPRAZOLE 40 MG TABLET PO SCH (06:48)
[2018-07-22] MEDS: SODIUM CHLORIDE 0.9% 1,000 ML IV SCH (06:48)
[2018-07-22] MEDS: MECLIZINE 25 MG TAB PO SCH (09:08)
[2018-07-22] MEDS: FAMOTIDINE 20 MG TAB PO SCH (09:08)
[2018-07-22] MEDS: FLUDROCORTISONE 0.1 MG TAB PO SCH ×2 (09:08→10:12)
[2018-07-22] MEDS: APIXABAN 5 MG TAB PO SCH (09:08)
[2018-07-22] MEDS: OLANZapine 5 MG TAB PO SCH (09:08)
[2018-07-22] MEDS: ATORVASTATIN 40 MG TAB PO SCH (09:08)
[2018-07-22] MEDS: ALBUTEROL NEBULIZED 2.5 MG/3 ML INHALATION SCH (09:15)
[2018-07-22] MEDS: SYMBICORT 160-4.5 MCG INHALER INHALATION SCH (09:15)
[2018-07-22 09:16] VITALS: RESP 18; TEMP 97.8
[2018-07-22] MEDS ORDERED: Magnesium Replacement Protocol 1 EACH MISC MISCELLANE PRN (11:41)
--- NOTE | 2018-07-22 11:54 | P.DS ---
Providers Date of admission: 07/18/18 20:06 Expected date of discharge: 07/22/18 Attending physician: Panfilo Argueta Consults: 07/19/18 00:56 Consult Physician Routine Consulting Provider: Ethan Carrasco Consult Reason/Comments: new onset afib Do you want consulting provider notified?: Yes, Notify in am 07/20/18 13:27 Consult Physician Routine Consulting Provider: Yousuf Gallo Consult Reason/Comments: right kidney atrophy Do you want consulting provider notified?: Yes 07/21/18 12:06 Consult Physician Routine Consulting Provider: Hermes Robbins Consult Reason/Comments: dizziness with position changes Do you want consulting provider notified?: Yes Primary care physician: [facility] Course: Final Diagnoses: (1) Chronic obstructive pulmonary disease Current Visit: Yes Status: Acute Code(s): J44.9 - CHRONIC OBSTRUCTIVE PULMONARY DISEASE, UNSPECIFIED SNOMED Code(s): 87167616 (2) Tobacco abuse Current Visit: Yes Status: Acute Code(s): Z72.0 - TOBACCO USE SNOMED Code(s): 986742360 (3) Essential (primary) hypertension Current Visit: Yes Status: Acute Code(s): I10 - ESSENTIAL (PRIMARY) HYPERTENSION SNOMED Code(s): 32164062 (4) Paroxysmal atrial fibrillation Current Visit: Yes Status: Acute Code(s): I48.0 - PAROXYSMAL ATRIAL FIBRILLATION SNOMED Code(s): 619748332 (5) Hypokalemia Current Visit: Yes Status: Acute Code(s): E87.6 - HYPOKALEMIA SNOMED Code(s): 08028980 (6) Dorsalgia of lumbar region Current Visit: Yes Status: Acute Code(s): M54.5 - LOW BACK PAIN SNOMED Code(s): 183282404 (7) Mixed hyperlipidemia Current Visit: Yes Status: Acute Code(s): E78.2 - MIXED HYPERLIPIDEMIA SNOMED Code(s): 991761995 (8) Hyponatremia,, hypervolemic, secondary to hydrochlorothiazide which has been discontinued. Urine osmolality 196. Current Visit: Yes Status: Acute Code(s): E87.1 - HYPO-OSMOLALITY AND HYPONATREMIA SNOMED Code(s): 01630739 (9) Hypotension, orthostatic Current Visit: Yes Status: Acute Code(s): I (10) acute renal failure, prerenal, improved with IV fluid hydration (11) atrophy right kidney, outpatient follow-up with nephrology (12) history of right carotid stenosis, follows with Dr. Cat (13) hypomagnesemia (14) mildly low cortisol level, rule out adrenal insufficiency, follow-up with endocrinology outpatient Hospital course:This is a pleasant 72-year-old white female, patient of my partner, Dr. Randell Virk. She came to the emergency room with the dizziness and fatigue for the past several days. She reports the dizziness and fatigue and been ongoing longer than this. She does have a history of COPD and does report some coughing, that is not her main complaint. She denies any chest pains, pressures. She does have some shortness of breath. She is instructed smoking history. She is generally being rehydrated. Overnight she began experiencing atrial fibrillation on the monitor which last approximately 1 hour, resolved on its own. Today she feels a bit better, denies any significant complaints other than some mild fatigue. Laboratory studies show a hyponatremia 121. Thyroid screening was negative. Troponin 1 was negative. Serum osmolality is low at 260 and urine osmolality is 196. Spot urine sodium is pending. 07/20/2018 positive for symptomatic orthostatic hypotension. Reports dizziness with standing. Patient has already received Norvasc and lisinopril this morning, placed on hold. Florinef added to med regime. Patient reports she has lost weight. Ultrasound reporting atrophied right kidney, possible new finding. Creatinine 0.76, had been elevated on admission at 1.17. CT reported no mass, no adenopathy, peribronchial thickening, acute/chronic bronchitis. Reports productive cough at time with white sputum. New-onset proximal A. fib, placed on Eliquis for anticoagulation.luid hydration with Sodium improving up to 131( at home patient was on hydrochlorothiazide).patient reports she drinks 8 glasses of water a day .Echo reporting EF 55-60%. Denies chest pain, palpitations or increased shortness of breath. Denies nausea vomiting or diarrhea. 07/21/18 antihypertensives discontinued with Florinef initiated yesterday - significant improvement in orthostatic hypotension. Sodium continues to improve 133. Telemetry normal sinus rhythm. Teary-eyed and complains of dizziness with position changes, currently on home dose of Antivert. Patient has history of right carotid stenosis, reports she is scheduled to follow-up with Dr. Cat on 08/17/18. Complains of generalized weakness ambulating short distances. Evaluated by nephrology with recommendations noted. Magnesium 1.6, receiving supplementation. 07/22/2018 Significant clinical improvement. Evaluated by physical therapy, gait training and supervision with roller walker recommended. Cleared by all consults for discharge. HCTZ has been discontinued. Lisinopril remains on hold, and to be reevaluated at follow-up visit with PCP. Patient is being discharged home in a stable condition with guarded prognosis. Exam GENERAL: sitting up in bed, alert and oriented 3 and in no acute distress. LUNGS: Bilateral bases diminished. No active wheezes rales or crackles. HEART: S1S2 Regular rate and rhythm with Systolic murmur, no rubs or gallops. ABDOMEN: Soft, nontender, normoactive bowel sounds. NEUROLOGICAL: No focal deficits. The impression and plan of care has been dictated as directed. : I performed a history and examination of this patient, discussed the same with the dictator. I agree with the dictator's note ,documented as a scribe. Any additional findings or plans will be noted. Time taken: 35 minutes Patient Condition at Discharge: Stable Plan - Discharge Summary Discharge Rx Participant: No New Discharge Prescriptions: New Apixaban [Eliquis] 5 mg PO BID #60 tab Nicotine 21Mg/24Hr Patch [Habitrol] 1 patch TRANSDERM DAILY@2100 #30 patch Budesonide-Formot 160-4.5 Mcg [Symbicort 160-4.5 Mcg Inhaler] 2 puff INHALATION RT-BID #1 inh Fludrocortisone [Florinef] 0.1 mg PO BID #60 tablet Ipratropium-Albuterol Nebulize [Duoneb 0.5 mg-3 mg/3 ml Soln] 3 ml INHALATION TID #90 neb Continue OLANZapine [ZyPREXA] 5 mg PO DAILY Albuterol Sulfate [Proair Hfa] 1 puff INHALATION RT-BID Diazepam 5 mg PO Q8HR PRN PRN Reason: Anxiety Meclizine [Antivert] 25 mg PO DAILY Omeprazole [PriLOSEC] 20 mg PO AC-BID Budesonide/Formoterol Fumarate [Symbicort 160-4.5 Mcg Inhaler] 2 puff INHALATION RT-BID HYDROcodone/APAP 7.5-325MG [[place] 7.5-325] 1 tab PO Q6H PRN PRN Reason: Pain Simvastatin [Zocor] 20 mg PO DAILY Discontinued Ranitidine HCl [Zantac] 150 mg PO DAILY Hydrochlorothiazide [Hydrodiuril] 25 mg PO DAILY Discharge Medication List Albuterol Sulfate [Proair Hfa] 1 puff INHALATION RT-BID 12/03/15 [History] Diazepam 5 mg PO Q8HR PRN 12/03/15 [History] Meclizine [Antivert] 25 mg PO DAILY 12/03/15 [History] OLANZapine [ZyPREXA] 5 mg PO DAILY 12/03/15 [History] Omeprazole [PriLOSEC] 20 mg PO AC-BID 08/26/16 [History] Budesonide/Formoterol Fumarate [Symbicort 160-4.5 Mcg Inhaler] 2 puff INHALATION RT-BID 07/18/18 [History] HYDROcodone/APAP 7.5-325MG [[place] 7.5-325] 1 tab PO Q6H PRN 07/18/18 [History] Simvastatin [Zocor] 20 mg PO DAILY 07/18/18 [History] Apixaban [Eliquis] 5 mg PO BID #60 tab 07/21/18 [Rx] Budesonide-Formot 160-4.5 Mcg [Symbicort 160-4.5 Mcg Inhaler] 2 puff INHALATION RT-BID #1 inh 07/21/18 [Rx] Nicotine 21Mg/24Hr Patch [Habitrol] 1 patch TRANSDERM DAILY@2100 #30 patch 07/21/18 [Rx] Fludrocortisone [Florinef] 0.1 mg PO BID #60 tablet 07/22/18 [Rx] Ipratropium-Albuterol Nebulize [Duoneb 0.5 mg-3 mg/3 ml Soln] 3 ml INHALATION TID #90 neb 07/22/18 [Rx] Follow up Appointment(s)/Referral(s): Ryan Cortes MD [STAFF PHYSICIAN] - 08/04/18 4:30 pm Bharath Campos DO [Doctor of Osteopathic Medicine] - 1 Week Sully,Randell Jr, DO [Primary Care Provider] - 3 Days [facility], [NON-STAFF] - Yousuf Gallo DO [STAFF PHYSICIAN] - 1 Week Ambulatory/Diagnostic Orders: Complete Blood Count w/diff [LAB.AMB] Time Frame: 3 Days, Location: None [place] cted Magnesium [LAB.AMB] Time Frame: 3 Days, Location: None Selected Patient Instructions/Handouts: How to Stop Smoking (DC), Hyponatremia (DC), Hypotension (DC), Safe Use of Anticoagulants (DC) Activity/Diet/Wound Care/Special Instructions: HCTZ discontinued. Lisinopril on hold, reevaluate at follow-up with PCP . Case management to ensure patient has a nebulizer pts monthly copay for EliquDealCircle is $[address] Campos's office for an appointment Diet: Cardiac, 1500 mL fluid restriction per 24 hours Activity: Limited till follow-up Case management to arrange home care with physical therapy-gait training Discharge Disposition: HOME WITH HOME HEALTH SERVICES
[2018-07-22 14:04] VITALS: BP 131/73; PULSE 85
--- NOTE | 2018-07-22 21:30 | PN ---
PROGRESS NOTE The patient is seen for followup for hyponatremia. Her serum sodium has improved to 133. Overall, patient states she is feeling well. She was maintained on normal saline. Appears to be hypovolemic hyponatremia. PHYSICAL EXAMINATION: VITAL SIGNS: This morning, blood pressure was 142/77, heart rate 80 per minute. She is afebrile. CARDIOVASCULAR: Examination of the heart S1, S2. LUNGS: Examination lungs bilateral breath sounds are heard. ABDOMEN is soft, nontender. EXTREMITIES: Examination lower extremities shows no significant edema. BUTTONER exam is grossly intact. LAB: Show sodium 133, potassium 4.3, hemoglobin 10.9 g/dL. ASSESSMENT: 1. Hyponatremia, appears to be hypovolemic and improved. 2. Mild acute kidney injury, prerenal, improved with IV hydration. 3. Right renal atrophy. PLAN: Monitor potassium as an outpatient. Maintain adequate protein intake and repeat labs as outpatient. Avoid thiazide diuretics. MMODL / IJN: [id number] /
== END 2018-07-22 16:02 | disposition home health service (06) | DRG 641 ==
LOC: EC 17:00 → 3SCARD 20:06
PROVIDERS: ADMIT Family Medicine; ATTEND Family Medicine
DX: E87.1 Hypo-osmolality and hyponatremia (principal); N17.9 Acute kidney failure, unspecified; I48.0 Paroxysmal atrial fibrillation; J43.9 Emphysema, unspecified; I65.21 Occlusion and stenosis of right carotid artery; E83.42 Hypomagnesemia; E86.0 Dehydration; I95.1 Orthostatic hypotension; E87.6 Hypokalemia; E78.2 Mixed hyperlipidemia; T50.2X5A Adverse effect of carbonic-anhydrase inhibitors, benzothiadiazides and other diuretics, initial encounter; F17.210 Nicotine dependence, cigarettes, uncomplicated; F32.9 Major depressive disorder, single episode, unspecified; F41.9 Anxiety disorder, unspecified; H61.20 Impacted cerumen, unspecified ear; I10 Essential (primary) hypertension; I44.0 Atrioventricular block, first degree; K21.9 Gastro-esophageal reflux disease without esophagitis; N26.1 Atrophy of kidney (terminal); G89.29 Other chronic pain; M19.90 Unspecified osteoarthritis, unspecified site; M54.5 Low back pain; E07.9 Disorder of thyroid, unspecified; Z79.51 Long term (current) use of inhaled steroids; Z79.899 Other long term (current) drug therapy; Z85.828 Personal history of other malignant neoplasm of skin; Z90.49 Acquired absence of other specified parts of digestive tract
CPT/HCPCS: 36415; 71046; 71260; 76770; 80048; 80053; 82533; 83735; 83930; 83935; 84134; 84300; 84443; 84484; 85025; 85610; 85730; 93005; 93306; 94640; 96360; 99285

== ENCOUNTER 2018-08-17 20:24 | Emergency (ER) | payer MEDICARE, OTHER ==
[2018-08-17 20:32] VITALS: RESP 18
--- NOTE | 2018-08-17 21:06 | ED ---
General Adult HPI - General Chief complaint: Arrhythmia/Palpitations Stated complaint: Heart Racing, DONALD, Chest Pain Time Seen by Provider: 08/17/18 20:30 Source: patient, family, RN notes reviewed Mode of arrival: wheelchair Limitations: no limitations - History of Present Illness Initial comments: This a 72-year-old female who presents to the emergency department with past medical history significant for atrial fibrillation. Patient states she's mclaughlin ving a little harder time breathing today. Patient son was taking her blood pressure and noticed her false was elevated between 110 and 127 so he determined to bring her to the emergency department. Patient stated she has no chest pain she denies any recent fever chills or cough. Patient denies abdominal pain patient has nausea vomiting diarrhea. Patient states she does not have any palpitations. Patient denies any swelling to the legs or calf tenderness. - Related Data Home Medications Medication Instructions Recorded Confirmed Albuterol Sulfate [Proair Hfa] 1 puff INHALATION RT-BID 12/03/15 08/17/18 Diazepam 5 mg PO Q8HR PRN 12/03/15 08/17/18 Meclizine [Antivert] 25 mg PO DAILY 12/03/15 08/17/18 OLANZapine [ZyPREXA] 5 mg PO DAILY 12/03/15 08/17/18 Omeprazole [PriLOSEC] 20 mg PO AC-BID 08/26/16 08/17/18 HYDROcodone/APAP 7.5-325MG [[place] 1 tab PO Q6H PRN 07/18/18 08/17/18 7.5-325] Simvastatin [Zocor] 20 mg PO DAILY 07/18/18 08/17/18 Ipratropium-Albuterol Nebulize 3 ml INHALATION RT-TID PRN 08/17/18 08/17/18 [Duoneb 0.5 mg-3 mg/3 ml Soln] Previous Rx's Medication Instructions Recorded Apixaban [Eliquis] 5 mg PO BID #60 tab 07/21/18 Budesonide-Formot 160-4.5 Mcg 2 puff INHALATION RT-BID #1 inh 07/21/18 [Symbicort 160-4.5 Mcg Inhaler] Nicotine 21Mg/24Hr Patch [Habitrol] 1 patch TRANSDERM DAILY@2100 #30 07/21/18 patch Fludrocortisone [Florinef] 0.1 mg PO BID #60 tablet 07/22/18 Allergies Allergy/AdvReac Type Severity Reaction Status Date / Time No Known Allergies Allergy Verified 08/17/18 21:40 Review of Systems ROS Statement: Those systems with pertinent positive or pertinent negative responses have been documented in the HPI. ROS Other: All systems not noted in ROS Statement are negative. Past Medical History Past Medical History: Cancer, COPD, GERD/Reflux, Hyperlipidemia, Hypertension, Osteoarthritis (OA), Thyroid Disorder Additional Past Medical History / Comment(s): occ. DIZZINESS, CHRONIC BACK PAIN History of Any Multi-Drug Resistant Organisms: None Reported Past Surgical History: Back Surgery, Cholecystectomy Additional Past Surgical History / Comment(s): triple endo January 2018 for gallbladder removal Past Anesthesia/Blood Transfusion Reactions: No Reported Reaction Past Psychological History: Anxiety, Depression Smoking Status: Current every day smoker Past Alcohol Use History: Occasional Past Drug Use History: None Reported - Past Family History Mother Family Medical History: Unable to Obtain Additional Family Medical History / Comment(s): WAS ADOPTED. General Exam - General Exam Comments Initial Comments: GENERAL: Patient is well-developed and well-nourished. Patient is nontoxic and well- hydrated and is in no acute distress. ENT: Neck is soft and supple. No significant lymphadenopathy is noted. Oropharynx is clear. Moist mucous membranes. Neck has full range of motion without eliciting any pain. EYES: The sclera were anicteric and conjunctiva were pink and moist. Extraocular movements were intact and pupils were equal round and reactive to light. Eyelids were unremarkable. PULMONARY: Unlabored respirations. Good breath sounds bilaterally. No audible rales rhonchi or wheezing was noted. CARDIOVASCULAR: Patient has an irregular heartbeat patient is mildly tachycardic at 103 beats a minute ABDOMEN: Soft and nontender with normal bowel sounds. No palpable organomegaly was noted. There is no palpable pulsatile mass. SKIN: Skin is clear with no lesions or rashes and otherwise unremarkable. NEUROLOGIC: Patient is alert and oriented x3. Cranial nerves II through XII are grossly intact. Motor and sensory are also intact. Normal speech, volume and content. Symmetrical smile. MUSCULOSKELETAL: Normal extremities with adequate strength and full range of motion. No lower e xtremity swelling or edema. No calf tenderness. LYMPHATICS: No significant lymphadenopathy is noted PSYCHIATRIC: Normal psychiatric evaluation. Limitations: no limitations Course Vital Signs 08/17/18 20:28 Temperature 97.4 F L Pulse Rate 124 H Respiratory 18 Rate Blood Pressure 104/69 O2 Sat by Pulse 96 Oximetry Medical Decision Making - Medical Decision Making EKG shows atrial flutter with inconsistent block at a rate of 101 bpm QRS is 76 QT interval 348 QTC is 451. Patient's EKG shows no ST segment elevation or depression. I will begin to reevaluate the patient his rhythm strip consistently was in the 70s at this point time patient had no symptoms whatsoever patient wanted to go home and follow-up with primary medical care doctor we talked about possibly getting a production corrugator for the patient both the son and patient agreed is unlikely good idea they'll be discharged home at this time. - Lab Data Result diagrams: 08/17/18 20:51 08/17/18 20:51 Lab Results 08/17/18 08/17/18 08/17/18 Range/Units 20:51 20:51 20:51 WBC 7.0 (3.8-10.6) k/uL RBC 4.32 (3.80-5.40) m/uL Hgb 13.4 (11.4-16.0) gm/dL Hct 41.1 (34.0-46.0) % MCV 95.2 (80.0-100.0) fL MCH 31.0 (25.0-35.0) pg MCHC 32.5 (31.0-37.0) g/dL RDW 14.5 (11.5-15.5) % Plt Count 319 (150-450) k/uL Neutrophils % 58 % Lymphocytes % 25 % Monocytes % 9 % Eosinophils % 6 % Basophils % 1 % Neutrophils # 4.0 (1.3-7.7) k/uL Lymphocytes # 1.7 (1.0-4.8) k/uL Monocytes # 0.6 (0-1.0) k/uL Eosinophils # 0.4 (0-0.7) k/uL Basophils # 0.1 (0-0.2) k/uL PT 9.4 (9.0-12.0) sec INR 0.8 (<1.2) APTT 28.0 (22.0-30.0) sec Sodium 135 L (137-145) mmol/L Potassium 4.1 (3.5-5.1) mmol/L Chloride 102 (98-107) mmol/L Carbon Dioxide 26 (22-30) mmol/L Anion Gap 7 mmol/L BUN 13 (7-17) mg/dL Creatinine 0.85 (0.52-1.04) mg/dL Est GFR (CKD-EPI)AfAm 80 (>60 ml/min/1.73 sqM) Est GFR (CKD-EPI)NonAf 69 (>60 ml/min/1.73 sqM) Glucose 99 (74-99) mg/dL Calcium 9.3 (8.4-10.2) mg/dL Magnesium 2.1 (1.6-2.3) mg/dL Total Bilirubin 0.9 (0.2-1.3) mg/dL AST 38 H (14-36) U/L ALT 23 (9-52) U/L Alkaline Phosphatase 107 (38-126) U/L Troponin I (0.000-0.034) ng/mL Total Protein 6.1 L (6.3-8.2) g/dL Albumin 3.7 (3.5-5.0) g/dL TSH 9.940 H (0.465-4.680) mIU/L Free T4 1.03 (0.78-2.19) ng/dL 08/17/18 Range/Units 20:51 WBC (3.8-10.6) k/uL RBC (3.80-5.40) m/uL Hgb (11.4-16.0) gm/dL Hct (34.0-46.0) % MCV (80.0-100.0) fL MCH (25.0-35.0) pg MCHC (31.0-37.0) g/dL RDW (11.5-15.5) % Plt Count (150-450) k/uL Neutrophils % % Lymphocytes % % Monocytes % % Eosinophils % % Basophils % % Neutrophils # (1.3-7.7) k/uL Lymphocytes # (1.0-4.8) k/uL Monocytes # (0-1.0) k/uL Eosinophils # (0-0.7) k/uL Basophils # (0-0.2) k/uL PT (9.0-12.0) sec INR (<1.2) APTT (22.0-30.0) sec Sodium (137-145) mmol/L Potassium (3.5-5.1) mmol/L Chloride (98-107) mmol/L Carbon Dioxide (22-30) mmol/L Anion Gap mmol/L BUN (7-17) mg/dL Creatinine (0.52-1.04) mg/dL Est GFR (CKD-EPI)AfAm (>60 ml/min/1.73 sqM) Est GFR (CKD-EPI)NonAf (>60 ml/min/1.73 sqM) Glucose (74-99) mg/dL Calcium (8.4-10.2) mg/dL Magnesium (1.6-2.3) mg/dL Total Bilirubin (0.2-1.3) mg/dL AST (14-36) U/L ALT (9-52) U/L Alkaline Phosphatase (38-126) U/L Troponin I <0.012 (0.000-0.034) ng/mL Total Protein (6.3-8.2) g/dL Albumin (3.5-5.0) g/dL TSH (0.465-4.680) mIU/L Free T4 (0.78-2.19) ng/dL Disposition Clinical Impression: Atrial flutter Disposition: HOME SELF-CARE Condition: Good Instructions (If sedation given, give patient instructions): Atrial Flutter (ED) Is patient prescribed a controlled substance at d/c from ED?: No Referrals: Randell Virk Jr, [Primary Care Provider] - 1-2 days Time of Disposition: 22:15
[2018-08-17 21:21] LABS: Albumin 3.7 g/dL (3.5-5.0); Calcium 9.3 mg/dL (8.4-10.2); Magnesium 2.1 mg/dL (1.6-2.3); Potassium 4.1 mmol/L (3.5-5.1); Total Bilirubin 0.9 mg/dL (0.2-1.3); Total Protein 6.1 g/dL (6.3-8.2)
[2018-08-17 21:24] LABS: Basophils # (A) 0.1 k/uL (0-0.2); Basophils % (A) 1 %; Eosinophils # (A) 0.4 k/uL (0-0.7); Eosinophils % (A) 6 %; HCT 41.1 % (34.0-46.0); HGB 13.4 gm/dL (11.4-16.0); Lymphocytes # (A) 1.7 k/uL (1.0-4.8); Lymphocytes % (A) 25 %; MCHC 32.5 g/dL (31.0-37.0); MCV 95.2 fL (80.0-100.0); Mean Platelet Volume 7.4; Monocytes # (A) 0.6 k/uL (0-1.0); Monocytes % (A) 9 %; Neutrophils % (A) 58 %; Platelet Count 319 k/uL (150-450); RBC 4.32 m/uL (3.80-5.40); RDW 14.5 % (11.5-15.5)
[2018-08-17 21:27] LABS: INR 0.8 (<1.2); Prothrombin Time 9.4 sec (9.0-12.0)
[2018-08-17 21:38] LABS: T4, Free (Free Thyroxine) 1.03 ng/dL (0.78-2.19)
--- NOTE | 2018-08-17 21:38 | XR ---
EXAMINATION: XR chest 2V DATE AND TIME: 08/17/2018 9:09 PM CLINICAL INDICATION: PHH; dysrhythmia TECHNIQUE: Departmental protocol COMPARISON: 07/18/2018 FINDINGS: There is hyperinflation. The lungs are clear. The pleural spaces are negative. The cardiac silhouette is not enlarged. The remainder of the mediastinal silhouette is unremarkable. The skeletal structures and soft tissues are negative for acute findings. IMPRESSION: NO ACUTE PROCESS.
[2018-08-17 22:38] VITALS: BP 111/62; PULSE 72; TEMP 97.7
== END 2018-08-17 22:38 | disposition home or self-care (01) ==
LOC: EC 20:24
DX: I48.92 Unspecified atrial flutter (principal); J44.9 Chronic obstructive pulmonary disease, unspecified; K21.9 Gastro-esophageal reflux disease without esophagitis; E78.5 Hyperlipidemia, unspecified; I10 Essential (primary) hypertension; I48.91 Unspecified atrial fibrillation; F32.9 Major depressive disorder, single episode, unspecified; F17.200 Nicotine dependence, unspecified, uncomplicated; Z85.9 Personal history of malignant neoplasm, unspecified; Z79.899 Other long term (current) drug therapy
CPT/HCPCS: 36415; 71046; 80053; 83735; 84439; 84443; 84484; 85025; 85610; 85730; 93005; 99285

== ENCOUNTER 2019-06-01 12:43 | Observation (INO) | payer MEDICARE, OTHER ==
[2019-06-01] MEDS ORDERED: NITROGLYCERIN SL TABS 0.4 MG TAB SUBLINGUAL STA ×2 (12:44)
[2019-06-01] MEDS ORDERED: ASPIRIN 81 MG PO STA (12:44)
--- NOTE | 2019-06-01 12:53 | ED ---
General Adult HPI - General Chief complaint: Chest Pain Stated complaint: Chest Pain Time Seen by Provider: 06/01/19 12:44 Source: patient, EMS, RN notes reviewed Mode of arrival: EMS Limitations: no limitations - History of Present Illness Initial comments: Patient is a pleasant 73-year-old female presenting to the emergency department for chest discomfort. Patient was at Dr. Putnam's office and advised to come the emergency department. Patient did come back ambulance. Patient has been having chest discomfort for greater than 1 month. Discomfort has been persistent. Discomfort is described as pressure. No radiation. No associated dyspnea, n ausea, diaphoresis. - Related Data Home Medications Medication Instructions Recorded Confirmed Albuterol Sulfate [Proair Hfa] 1 puff INHALATION RT-BID 12/03/15 08/17/18 Diazepam 5 mg PO Q8HR PRN 12/03/15 08/17/18 Meclizine [Antivert] 25 mg PO DAILY 12/03/15 08/17/18 OLANZapine [ZyPREXA] 5 mg PO DAILY 12/03/15 08/17/18 Omeprazole [PriLOSEC] 20 mg PO AC-BID 08/26/16 08/17/18 HYDROcodone/APAP 7.5-325MG [[place] 1 tab PO Q6H PRN 07/18/18 08/17/18 7.5-325] Simvastatin [Zocor] 20 mg PO DAILY 07/18/18 08/17/18 Ipratropium-Albuterol Nebulize 3 ml INHALATION RT-TID PRN 08/17/18 08/17/18 [Duoneb 0.5 mg-3 mg/3 ml Soln] Previous Rx's Medication Instructions Recorded Apixaban [Eliquis] 5 mg PO BID #60 tab 07/21/18 Budesonide-Formot 160-4.5 Mcg 2 puff INHALATION RT-BID #1 inh 07/21/18 [Symbicort 160-4.5 Mcg Inhaler] Nicotine 21Mg/24Hr Patch [Habitrol] 1 patch TRANSDERM DAILY@2100 #30 07/21/18 patch Fludrocortisone [Florinef] 0.1 mg PO BID #60 tablet 07/22/18 Allergies Allergy/AdvReac Type Severity Reaction Status Date / Time No Known Allergies Allergy Verified 08/17/18 21:40 Review of Systems ROS Statement: Those systems with pertinent positive or pertinent negative responses have been documented in the HPI. ROS Other: All systems not noted in ROS Statement are negative. Constitutional: Denies: fever Eyes: Denies: eye pain ENT: Denies: ear pain Respiratory: Denies: cough, dyspnea Cardiovascular: Reports: chest pain Endocrine: Denies: fatigue Gastrointestinal: Denies: abdominal pain Genitourinary: Denies: dysuria Musculoskeletal: Denies: back pain Skin: Denies: rash Neurological: Denies: weakness Past Medical History Past Medical History: Cancer, COPD, GERD/Reflux, Hyperlipidemia, Hypertension, Osteoarthritis (OA), Thyroid Disorder Additional Past Medical History / Comment(s): occ. DIZZINESS, CHRONIC BACK PAIN History of Any Multi-Drug Resistant Organisms: None Reported Past Surgical History: Back Surgery, Cholecystectomy Additional Past Surgical History / Comment(s): triple endo January 2018 for gallbladder removal Past Anesthesia/Blood Transfusion Reactions: No Reported Reaction Past Psychological History: Anxiety, Depression Smoking Status: Current every day smoker Past Alcohol Use History: Occasional Past Drug Use History: None Reported - Past Family History Mother Family Medical History: Unable to Obtain Additional Family Medical History / Comment(s): WAS ADOPTED. General Exam Limitations: no limitations General appearance: alert, in no apparent distress Head exam: Present: normocephalic Eye exam: Present: normal appearance, PERRL ENT exam: Present: normal oropharynx Neck exam: Present: normal inspection Respiratory exam: Present: normal lung sounds bilaterally Cardiovascular Exam: Present: regular rate, normal rhythm Expanded Peripheral pulses: 2+: Radial (R), Radial (L), Posterior Tibialis (R), Posterior Tibialis (L) GI/Abdominal exam: Present: soft. Absent: tenderness Extremities exam: Present: normal inspection. Absent: pedal edema, calf tenderness Neurological exam: Present: alert Psychiatric exam: Present: normal affect, normal mood Skin exam: Present: normal color Course Vital Signs 06/01/19 06/01/19 06/01/19 12:45 13:08 13:15 Temperature 97.7 F Pulse Rate 75 78 78 Respiratory 19 18 18 Rate Blood Pressure 218/98 206/99 109/75 O2 Sat by Pulse 100 100 Oximetry 06/01/19 06/01/19 14:00 15:00 Temperature Pulse Rate 72 67 Respiratory 18 18 Rate Blood Pressure 156/93 143/86 O2 Sat by Pulse 100 100 Oximetry EKG Findings - EKG Comments: EKG Findings:: No sinus rhythm 77. First-degree AV block DC of 202. QRS 76. QT 374. QTC 423. Normal axis. Septal Q waves. Nonspecific ST-T. Medical Decision Making - Medical Decision Making Patient reevaluated and resting comfortably in bed. Patient states symptoms have improved with nitroglycerin however not resolved. Case again discussed with Dr. Putnam, who will admit his patient with cardiology consult. - Lab Data Result diagrams: 06/01/19 13:24 06/01/19 13:13 Lab Results 06/01/19 06/01/19 06/01/19 Range/Units 13:13 13:13 13:13 WBC (3.8-10.6) k/uL RBC (3.80-5.40) m/uL Hgb (11.4-16.0) gm/dL Hct (34.0-46.0) % MCV (80.0-100.0) fL MCH (25.0-35.0) pg MCHC (31.0-37.0) g/dL RDW (11.5-15.5) % Plt Count (150-450) k/uL Neutrophils % % Lymphocytes % % Monocytes % % Eosinophils % % Basophils % % Neutrophils # (1.3-7.7) k/uL Lymphocytes # (1.0-4.8) k/uL Monocytes # (0-1.0) k/uL Eosinophils # (0-0.7) k/uL Basophils # (0-0.2) k/uL PT 9.6 (9.0-12.0) sec INR 0.9 (<1.2) APTT 24.7 (22.0-30.0) sec Sodium 136 L (137-145) mmol/L Potassium 4.1 (3.5-5.1) mmol/L Chloride 101 (98-107) mmol/L Carbon Dioxide 27 (22-30) mmol/L Anion Gap 8 mmol/L BUN 11 (7-17) mg/dL Creatinine 1.13 H (0.52-1.04) mg/dL Est GFR (CKD-EPI)AfAm 56 (>60 ml/min/1.73 sqM) Est GFR (CKD-EPI)NonAf 49 (>60 ml/min/1.73 sqM) Glucose 92 (74-99) mg/dL Calcium 9.5 (8.4-10.2) mg/dL Magnesium 2.1 (1.6-2.3) mg/dL Total Bilirubin 1.7 H (0.2-1.3) mg/dL AST 26 (14-36) U/L ALT 13 (4-34) U/L Alkaline Phosphatase 71 (38-126) U/L Creatine Kinase 53 (30-135) U/L Troponin I <0.012 (0.000-0.034) ng/mL Total Protein 7.0 (6.3-8.2) g/dL Albumin 4.3 (3.5-5.0) g/dL 06/01/19 Range/Units 13:24 WBC 7.2 (3.8-10.6) k/uL RBC 4.32 (3.80-5.40) m/uL Hgb 13.8 (11.4-16.0) gm/dL Hct 40.8 (34.0-46.0) % MCV 94.3 (80.0-100.0) fL MCH 31.8 (25.0-35.0) pg MCHC 33.8 (31.0-37.0) g/dL RDW 12.4 (11.5-15.5) % Plt Count 212 (150-450) k/uL Neutrophils % 67 % Lymphocytes % 22 % Monocytes % 7 % Eosinophils % 2 % Basophils % 1 % Neutrophils # 4.8 (1.3-7.7) k/uL Lymphocytes # 1.6 (1.0-4.8) k/uL Monocytes # 0.5 (0-1.0) k/uL Eosinophils # 0.2 (0-0.7) k/uL Basophils # 0.1 (0-0.2) k/uL PT (9.0-12.0) sec INR (<1.2) APTT (22.0-30.0) sec Sodium (137-145) mmol/L Potassium (3.5-5.1) mmol/L Chloride (98-107) mmol/L Carbon Dioxide (22-30) mmol/L Anion Gap mmol/L BUN (7-17) mg/dL Creatinine (0.52-1.04) mg/dL Est GFR (CKD-EPI)AfAm (>60 ml/min/1.73 sqM) Est GFR (CKD-EPI)NonAf (>60 ml/min/1.73 sqM) Glucose (74-99) mg/dL Calcium (8.4-10.2) mg/dL Magnesium (1.6-2.3) mg/dL Total Bilirubin (0.2-1.3) mg/dL AST (14-36) U/L ALT (4-34) U/L Alkaline Phosphatase (38-126) U/L Creatine Kinase (30-135) U/L Troponin I (0.000-0.034) ng/mL Total Protein (6.3-8.2) g/dL Albumin (3.5-5.0) g/dL - Radiology Data Radiology results: image reviewed (Chest x-ray shows no acute process) Disposition Clinical Impression: Chest pain Disposition: ADMITTED IP TO THIS HOSP Is patient prescribed a controlled substance at d/c from ED?: No Referrals: Randell Virk Jr, [Primary Care Provider] - 1-2 days Decision Time: 15:42
[2019-06-01] MEDS: NITROGLYCERIN SL TABS 0.4 MG TAB SUBLINGUAL STA ×2 (13:15→13:21)
[2019-06-01 13:37] LABS: INR 0.9 (<1.2); Partial Thromboplastin Time 24.7 sec (22.0-30.0); Prothrombin Time 9.6 sec (9.0-12.0)
[2019-06-01 13:46] LABS: Albumin 4.3 g/dL (3.5-5.0); Calcium 9.5 mg/dL (8.4-10.2); Magnesium 2.1 mg/dL (1.6-2.3); Potassium 4.1 mmol/L (3.5-5.1); Total Bilirubin 1.7 mg/dL (0.2-1.3)
[2019-06-01 13:50] LABS: Basophils # (A) 0.1 k/uL (0-0.2); Basophils % (A) 1 %; Eosinophils # (A) 0.2 k/uL (0-0.7); Eosinophils % (A) 2 %; HCT 40.8 % (34.0-46.0); HGB 13.8 gm/dL (11.4-16.0); Lymphocytes # (A) 1.6 k/uL (1.0-4.8); Lymphocytes % (A) 22 %; MCH 31.8 pg (25.0-35.0); MCHC 33.8 g/dL (31.0-37.0); MCV 94.3 fL (80.0-100.0); Mean Platelet Volume 8.1; Monocytes # (A) 0.5 k/uL (0-1.0); Monocytes % (A) 7 %; Neutrophils # (A) 4.8 k/uL (1.3-7.7); Neutrophils % (A) 67 %; Platelet Count 212 k/uL (150-450); RBC 4.32 m/uL (3.80-5.40); RDW 12.4 % (11.5-15.5); WBC 7.2 k/uL (3.8-10.6)
--- NOTE | 2019-06-01 13:59 | XR ---
EXAMINATION TYPE: XR chest 2V DATE OF EXAM: 06/01/2019 COMPARISON: Chest x-ray August 17, 2018 HISTORY: Chest pain and hypertension. TECHNIQUE: Frontal and lateral views of the chest are obtained. FINDINGS: There is chronic emphysematous change without focal air space opacity, pleural effusion, o r pneumothorax seen. The cardiac silhouette size is within normal limits with atherosclerotic aorta. The osseous structures are demineralized with underlying scoliosis and multilevel spurring in the spine. Cholecystectomy clips are noted. IMPRESSION: Chronic changes without acute pulmonary process.
[2019-06-01] MEDS ORDERED: NITROGLYCERIN SL TABS 0.4 MG TAB SUBLINGUAL PRN (15:43)
[2019-06-01] MEDS ORDERED: HYDROcodone/APAP 7.5-325MG 1 EACH TAB PO PRN (20:06)
[2019-06-01] MEDS ORDERED: ALBUTEROL NEBULIZED 2.5 MG/3 ML INHALATION PRN (20:06)
[2019-06-01] MEDS ORDERED: MECLIZINE 25 MG TAB PO PRN (20:06)
[2019-06-01] MEDS: amLODIPine 5 MG TAB PO SCH (21:04)
[2019-06-01] MEDS: NITROGLYCERIN OINT 1 INCH/GM PACKET TOPICAL SCH ×2 (21:19→23:39)
[2019-06-01] MEDS: APIXABAN 5 MG TAB PO SCH (21:21)
[2019-06-01] MEDS ORDERED: LORazepam 2 MG/ML INJ IV PRN ×3 (21:45)
[2019-06-01] MEDS: THIAMINE 100 MG TAB PO SCH (23:38)
[2019-06-02] MEDS: NITROGLYCERIN OINT 1 INCH/GM PACKET TOPICAL SCH (06:30)
[2019-06-02] MEDS ORDERED: PANTOPRAZOLE 40 MG TABLET PO SCH (07:30)
[2019-06-02] MEDS ORDERED: SYMBICORT 160-4.5 MCG INHALER INHALATION SCH (08:00)
[2019-06-02 08:10] VITALS: RESP 18
[2019-06-02 08:15] LABS: Cholesterol 149 mg/dL (<200); HDL Cholesterol 84 mg/dL (40-60); LDL Cholesterol,Calculated 48 mg/dL (0-99); Triglycerides 85 mg/dL (<150)
[2019-06-02] MEDS ORDERED: OLANZapine 5 MG TAB PO SCH (09:00)
[2019-06-02] MEDS ORDERED: LISINOPRIL 20 MG TAB PO SCH (09:00)
[2019-06-02] MEDS ORDERED: ASPIRIN 325 MG TAB PO SCH (09:00)
--- NOTE | 2019-06-02 09:55 | P.CRDCN ---
History of Present Illness History of present illness: HISTORY OF PRESENTING ILLNESS This is a pleasant 73-year-old female past medical history significant for paroxysmal atrial fibrillation on long-term anticoagulation, peripheral vas cular disease status post left endarterectomy, COPD, hypertension and dyslipidemia. She follows in the office with Dr. Cortes. We have been asked to see in consultation for chest pain. She is seen and examined resting comfortably sitting up in bed in no acute distress. She states she was sent to the hospital by her primary care physician secondary to ongoing persistent chest discomfort. She states she has had chest pain for many years. Her discomfort is worse with deep inspiration and associated with her breathing. She is somewhat of a poor historian and information is obtained from medical record and the nursing staff. Recent stress testing performed in the office with a dobutamine stress echocardiogram in 2015 was negative for stress-induced ischemia. Most recent echocardiogram obtained June 2018 reveals cervical LV systolic function with ejection fraction 55-60%. DIAGNOSTICS EKG reveals sinus mechanism heart rate of 77 with poor R-wave progression. Chest xray chronic changes without an acute cardiopulmonary process with underlying COPD. Laboratory reviewed, CBC unremarkable, sodium 136, potassium 4.1, creatinine 1.13 with a GFR 49, magnesium 2.1, total bilirubin 1.7, cardiac enzymes negative 3, LDL 48. Current cardiac medications include lisinopril 20 mg daily, Eliquis 5 mg twice a day and amlodipine 5 mg daily. REVIEW OF SYSTEMS At the time of my exam: CONSTITUTIONAL: Denies fever or chills. CARDIOVASCULAR: Denies chest pain, shortness of breath, orthopnea, PND or palpitations. RESPIRATORY: Denies cough. GASTROINTESTINAL: Denies abdominal pain, diarrhea, constipation, nausea or vomiting. MUSCULOSKELETAL: Denies myalgias. NEUROLOGIC: Denies numbness, tingling or weakness. ENDOCRINE: Denies fatigue, weight change, polydipsia or polyurina. GENITOURINARY: Denies burning, hematuria or urgency with micturation. HEMATOLOGIC: Denies history of anemia or bleeding. PHYSICAL EXAMINATION Blood pressure 164/84 heart rate 60 afebrile and maintaining oxygen saturation on nasal cannula. CONSTITUTIONAL: No apparent distress. HEENT: Head is normocephalic. Pupils are equal, round. Sclerae anicteric. Mucous membranes of the mouth are moist. No JVD. No carotid bruit. CHEST EXAMINATION: Lungs are clear to auscultation. No chest wall tenderness is noted on palpation or with deep breathing. HEART EXAMINATION: Regular rate and rhythm. S1, S2 heard. No murmurs, gallops or rub. ABDOMEN: Soft, nontender. Positive bowel sounds. EXTREMITIES: 2+ peripheral pulses, no lower extremity edema and no calf tenderness. NEUROLOGIC EXAMINATION: Patient is awake, alert and oriented x3. ASSESSMENT Chest pain, ongoing and associated with breathing. An acute event has been ruled out. COPD Paroxysmal atrial fibrillation on termite helper anticoagulation, currently maintaining sinus mechanism. Peripheral vascular disease s/p left carotid endartectomy Hypertension Dyslipidemia Chronic nicotine dependence PLAN An acute coronary event has been ruled out. No EKG evidence of acute ischemia. Symptoms are atypical for angina. Check d-dimer. Obtain 2D echocardiogram and doppler study to assess cardiac structure and function. Feed the patient and increase activity. Thank you kindly for this consultation. Nurse Practitioner note has been reviewed, I agree with a documented findings and plan of care. Patient was seen and examined. Past Medical History Past Medical History: Chest Pain / Angina, COPD, GERD/Reflux, Hyperlipidemia, Hypertension, Osteoarthritis (OA), Thyroid Disorder Additional Past Medical History / Comment(s): occ. DIZZINESS, CHRONIC BACK PAIN History of Any Multi-Drug Resistant Organisms: None Reported Past Surgical History: Back Surgery Additional Past Surgical History / Comment(s): triple endo January 2018 for gallbladder removal Past Anesthesia/Blood Transfusion Reactions: No Reported Reaction Past Psychological History: Anxiety, Depression Smoking Status: Current every day smoker Past Alcohol Use History: Occasional Additional Past Alcohol Use History / Comment(s): has smoked for over FOR 45 YRS.Has cut down to 10 cigs a day Past Drug Use History: None Reported - Past Family History Mother Family Medical History: Unable to Obtain Additional Family Medical History / Comment(s): WAS ADOPTED. Medications and Allergies Home Medications Medication Instructions Recorded Confirmed Type Meclizine [Antivert] 25 mg PO DAILY PRN 12/03/15 06/01/19 History Omeprazole [PriLOSEC] 20 mg PO DAILY 08/26/16 06/01/19 History HYDROcodone/APAP 7.5-325MG [[place] 1 tab PO Q6H PRN 07/18/18 06/01/19 History 7.5-325] Apixaban [Eliquis] 5 mg PO BID #60 tab 07/21/18 06/01/19 Rx Albuterol Inhaler [Ventolin Hfa 2 puff INHALATION RT-Q6H PRN 06/01/19 06/01/19 History Inhaler] Budesonide-Formot 160-4.5 Mcg 1 puff INHALATION RT-BID 06/01/19 06/01/19 History [Symbicort 160-4.5 Mcg Inhaler] Lisinopril 20 mg PO DAILY 06/01/19 06/01/19 History OLANZapine [ZyPREXA] 5 mg PO DAILY 06/01/19 06/01/19 History amLODIPine [Norvasc] 5 mg PO DAILY 06/01/19 06/01/19 History Allergies Allergy/AdvReac Type Severity Reaction Status Date / Time No Known Allergies Allergy Verified 06/01/19 18:22 Physical Exam Vitals: Vital Signs Temp Pulse Pulse Resp BP BP Pulse Ox 06/02/19 08:00 97.8 F 60 18 164/84 99 06/02/19 04:00 98.0 F 64 16 118/79 97 06/02/19 00:00 67 17 06/01/19 23:50 98.2 F 67 17 99/65 96 06/01/19 19:25 73 18 06/01/19 19:11 97.8 F 73 119/82 95 06/01/19 18:59 97.9 F 75 18 148/92 98 06/01/19 17:30 69 18 152/93 100 06/01/19 15:00 67 18 143/86 100 06/01/19 14:00 72 18 156/93 100 06/01/19 13:15 78 18 109/75 100 06/01/19 13:08 78 18 206/99 06/01/19 12:45 97.7 F 75 19 218/98 100 Intake and Output 06/01/19 06/02/19 06/02/19 22:59 06:59 14:59 Other: # Voids 1 1 Weight 48.988 kg 49.2 kg Results 06/01/19 13:24 06/01/19 13:13 Cardiac Enzymes 06/01/19 06/01/19 06/01/19 Range/Units 13:13 13:13 19:09 AST 26 (14-36) U/L Troponin I <0.012 <0.012 (0.000-0.034) ng/mL 06/02/19 Range/Units 01:00 AST (14-36) U/L Troponin I <0.012 (0.000-0.034) ng/mL Coagulation 06/01/19 Range/Units 13:13 PT 9.6 (9.0-12.0) sec APTT 24.7 (22.0-30.0) sec Lipids 06/02/19 Range/Units 07:48 Triglycerides 85 (<150) mg/dL Cholesterol 149 (<200) mg/dL HDL Cholesterol 84 H (40-60) mg/dL CBC 06/01/19 Range/Units 13:24 WBC 7.2 (3.8-10.6) k/uL RBC 4.32 (3.80-5.40) m/uL Hgb 13.8 (11.4-16.0) gm/dL Hct 40.8 (34.0-46.0) % Plt Count 212 (150-450) k/uL Comprehensive Metabolic Panel 06/01/19 Range/Units 13:13 Sodium 136 L (137-145) mmol/L Potassium 4.1 (3.5-5.1) mmol/L Chloride 101 (98-107) mmol/L Carbon Dioxide 27 (22-30) mmol/L BUN 11 (7-17) mg/dL Creatinine 1.13 H (0.52-1.04) mg/dL Glucose 92 (74-99) mg/dL Calcium 9.5 (8.4-10.2) mg/dL AST 26 (14-36) U/L ALT 13 (4-34) U/L Alkaline Phosphatase 71 (38-126) U/L Total Protein 7.0 (6.3-8.2) g/dL Albumin 4.3 (3.5-5.0) g/dL Current Medications Generic Name Dose Route Start Last Admin Trade Name Freq PRN Reason Stop Dose Admin Hydrocodone Bitart/Acetaminophen 1 each 06/01/19 20:06 [place] 7.5-325 PO Q6H PRN Pain Albuterol Sulfate 2.5 mg 06/01/19 20:06 Ventolin Nebulized INHALATION RT-Q6H PRN Shortness Of Breath Amlodipine Besylate 5 mg 06/01/19 20:15 06/01/19 21:04 Norvasc PO Not Given DAILY [facility] Apixaban 5 mg 06/01/19 21:00 06/01/19 21:21 Eliquis PO 5 mg BID [facility] Administration Aspirin 325 mg 06/02/19 09:00 Aspirin PO DAILY [facility] Budesonide/Formoterol Fumarate 2 puff 06/02/19 08:00 06/02/19 07:40 Symbicort 160-4.5 Mcg Inhaler INHALATION 2 puff RT-BID [facility] Administration Lisinopril 20 mg 06/02/19 09:00 Zestril PO DAILY [facility] Lorazepam 1 mg 06/01/19 21:45 Ativan IV Q2HR PRN CIWA 8 or 9 Lorazepam 1 mg 06/01/19 21:45 Ativan IV Q1HR PRN CIWA 10 to 15 Lorazepam 2 mg 06/01/19 21:45 Ativan IV 06/03/19 21:45 Q10M PRN CIWA 16 or higher Meclizine HCl 25 mg 06/01/19 20:06 Antivert PO DAILY PRN DIZZINESS/NAUSEA Nitroglycerin 0.4 mg 06/01/19 15:43 Nitrostat SUBLINGUAL Q5M PRN Chest Pain Nitroglycerin 1 inch 06/01/19 18:00 06/02/19 06:30 Nitro-Bid Oint TOPICAL Not Given Q6HR [facility] Olanzapine 5 mg 06/02/19 09:00 Zyprexa PO DAILY [facility] Pantoprazole Sodium 40 mg 06/02/19 07:30 Protonix PO AC-BRKFST [facility] Sodium Chloride 10 ml 06/01/19 21:00 06/01/19 21:21 Saline Flush IV 10 ml BID [facility] Administration Thiamine HCl 100 mg 06/01/19 17:30 06/01/19 23:38 Vitamin B-1 PO Not Given BID-W/MEALS [facility] Intake and Output 06/01/19 06/02/19 06/02/19 22:59 06:59 14:59 Other: # Voids 1 1 Weight 48.988 kg 49.2 kg 06/01/19 13:24 06/01/19 13:13
[2019-06-02] MEDS: amLODIPine 5 MG TAB PO SCH (10:23)
[2019-06-02] MEDS: THIAMINE 100 MG TAB PO SCH (10:23)
[2019-06-02] MEDS: APIXABAN 5 MG TAB PO SCH (10:23)
--- NOTE | 2019-06-02 11:07 | ECHOF ---
Referral Reason:cp MEASUREMENTS -------- HEIGHT: 166.4 cm WEIGHT: 49.0 kg BP: 164/84 RVIDd: 2.9 cm (< 3.3) IVSd: 1.2 cm (0.6 - 1.1) LVIDd: 2.8 cm (3.9 - 5.3) LVPWd: 1.0 cm (0.6 - 1.1) IVSs: 1.7 cm LVIDs: 1.8 cm LVPWs: 1.5 cm LA Diam: 2.7 cm (2.7 - 3.8) LAESV Index (A-L): 22.22 ml/m Ao Diam: 2.5 cm (2.0 - 3.7) AV Cusp: 1.7 cm (1.5 - 2.6) MV EXCURSION: 14.577 mm (> 18.000) MV EF SLOPE: 62 mm/s (70 - 150) EPSS: 0.3 cm MV E Milton: 0.90 m/s MV DecT: 252 ms MV A [place]: 0.76 m/s MV E/A Ratio: 1.18 RAP: 5.00 mmHg RVSP: 23.58 mmHg FINDINGS -------- Sinus rhythm. This was a technically good study. The left ventricular size is normal. There is borderline concentric left ventricular hypertrophy. Overall left ventricular systolic function is normal with, an EF between 60 - 65 %. The right ventricle is normal in size. Normal LA size by volume 22+/-6 ml/m2. The right atrium is normal in size. Interatrial and interventricular septum intact. The aortic valve is trileaflet and appears structurally normal. The mitral valve is normal. Mild tricuspid regurgitation present. Right ventricular systolic pressure is normal at < 35 mmHg. There is no pulmonic regurgitation present. The aortic root size is normal. Normal inferior vena cava with normal inspiratory collapse consistent with estimated right atrial pre ssure of 5 mmHg. There is no pericardial effusion. CONCLUSIONS -------- 1. Sinus rhythm. 2. This was a technically good study. 3. The left ventricular size is normal. 4. There is borderline concentric left ventricular hypertrophy. 5. Overall left ventricular systolic function is normal with, an EF between 60 - 65 %. 6. The right ventricle is normal in size. 7. Normal LA size by volume 22+/-6 ml/m2. 8. The right atrium is normal in size. 9. Interatrial and interventricular septum intact. 10. The aortic valve is trileaflet and appears structurally normal. 11. The mitral valve is normal. 12. Mild tricuspid regurgitation present. 13. Right ventricular systolic pressure is normal at < 35 mmHg. 14. There is no pulmonic regurgitation present. 15. The aortic root size is normal. 16. Normal inferior vena cava with normal inspiratory collapse consistent with estimated right atrial pressure of 5 mmHg. 17. There is no pericardial effusion. [employer]: Chelita Sanders RDCS
[2019-06-02 11:32] VITALS: BP 143/75; PULSE 66; TEMP 97.9
--- NOTE | 2019-06-02 15:41 | P.HPIM ---
History of Present Illness H&P Date: 06/02/19 Chief Complaint: Chest pain HIstory & Physical & Discharge Summary This is a 73-year-old female with history of angina, paroxysmal atrial fibrill ation , peripheral vascular disease ,gastroesophageal reflux disease, hyperlipidemia, hypertension, osteoarthritis, hypothyroidism, ongoing nicotine dependence, anxiety, depression presented to the ER with complaints of nonradiating chest pressure for greater than 1 month. Denies nausea vomiting or diarrhea. Denies diaphoresis. Denies lightheadedness dizziness or focal deficits. Denies palpitations, denies shortness of breath. EKG reporting normal sinus rhythm with septal infarct, age undetermined. Troponins negative 3. Chest x-ray reported non acute. Afebrile, normal WBC. Cholesterol panel, hematology unremarkable. Echo reported normal LV function, EF 60-65% Review of Systems ROS Statement: Those systems with pertinent positive or pertinent negative responses have been documented in the HPI. ROS Other: All systems not noted in ROS Statement are negative. Past Medical History Past Medical History: Chest Pain / Angina, COPD, GERD/Reflux, Hyperlipidemia, Hypertension, Osteoarthritis (OA), Thyroid Disorder Additional Past Medical History / Comment(s): occ. DIZZINESS, CHRONIC BACK PAIN History of Any Multi-Drug Resistant Organisms: None Reported Past Surgical History: Back Surgery Additional Past Surgical History / Comment(s): triple endo January 2018 for gallbladder removal Past Anesthesia/Blood Transfusion Reactions: No Reported Reaction Past Psychological History: Anxiety, Depression Smoking Status: Current every day smoker Past Alcohol Use History: Occasional Additional Past Alcohol Use History / Comment(s): has smoked for over FOR 45 YRS.Has cut down to 10 cigs a day Past Drug Use History: None Reported - Past Family History Mother Family Medical History: Unable to Obtain Additional Family Medical History / Comment(s): WAS ADOPTED. Medications and Allergies Home Medications Medication Instructions Recorded Confirmed Type Meclizine [Antivert] 25 mg PO DAILY PRN 12/03/15 06/01/19 History Omeprazole [PriLOSEC] 20 mg PO DAILY 08/26/16 06/01/19 History HYDROcodone/APAP 7.5-325MG [[place] 1 tab PO Q6H PRN 07/18/18 06/01/19 History 7.5-325] Apixaban [Eliquis] 5 mg PO BID #60 tab 07/21/18 06/01/19 Rx Albuterol Inhaler [Ventolin Hfa 2 puff INHALATION RT-Q6H PRN 06/01/19 06/01/19 History Inhaler] Budesonide-Formot 160-4.5 Mcg 1 puff INHALATION RT-BID 06/01/19 06/01/19 History [Symbicort 160-4.5 Mcg Inhaler] Lisinopril 20 mg PO DAILY 06/01/19 06/01/19 History OLANZapine [ZyPREXA] 5 mg PO DAILY 06/01/19 06/01/19 History amLODIPine [Norvasc] 5 mg PO DAILY 06/01/19 06/01/19 History Allergies Allergy/AdvReac Type Severity Reaction Status Date / Time No Known Allergies Allergy Verified 06/01/19 18:22 Physical Exam Vitals: Vital Signs Temp Pulse Pulse Resp BP BP Pulse Ox 06/02/19 11:31 97.9 F 66 18 143/75 94 L 06/02/19 08:00 97.8 F 60 18 164/84 99 06/02/19 04:00 98.0 F 64 16 118/79 97 06/02/19 00:00 67 17 06/01/19 23:50 98.2 F 67 17 99/65 96 06/01/19 19:25 73 18 06/01/19 19:11 97.8 F 73 119/82 95 06/01/19 18:59 97.9 F 75 18 148/92 98 06/01/19 17:30 69 18 152/93 100 06/01/19 15:00 67 18 143/86 100 06/01/19 14:00 72 18 156/93 100 Intake and Output 06/01/19 06/02/19 06/02/19 22:59 06:59 14:59 Intake Total 200 Balance 200 Intake: Other 200 Other: # Voids 1 1 Weight 48.988 kg 49.2 kg GENERAL: Thin pleasant and in no acute distress. HEAD: Atraumatic, normocephalic. EYES: Pupils equal round and reactive to light, extraocular movements intact, sclera anicteric, conjunctiva are normal. ENT:nares patent, oropharynx clear without exudates. Moist mucous membranes. NECK: Normal range of motion, supple without lymphadenopathy or JVD, no thyromegaly LUNGS: Breath sounds hoarse with decreased air exchange bilaterally. No active wheezes rales or crackles. HEART: Regular rate and rhythm without murmurs, rubs or gallops.S1S2 Normal ABDOMEN: Soft, nontender, normoactive bowel sounds. No guarding, no rebound. No masses appreciated. EXTREMITIES: Normal range of motion, no pitting or edema. No clubbing or cyanosis. NEUROLOGICAL: Cranial nerves II through XII grossly intact. Normal speech, normal gait. PSYCH: Normal mood, normal affect. SKIN: Warm, Dry, normal turgor, no rashes or lesions noted. Results CBC & Chem 7: 06/01/19 13:24 06/01/19 13:13 Labs: Abnormal Lab Results - Last 24 Hours (Table) 06/01/19 06/02/19 Range/Units 13:13 07:48 Sodium 136 L (137-145) mmol/L Creatinine 1.13 H (0.52-1.04) mg/dL Total Bilirubin 1.7 H (0.2-1.3) mg/dL HDL Cholesterol 84 H (40-60) mg/dL Thrombosis Risk Factor Assmnt - Choose All That Apply Each Factor Represents 1 point: Abnormal pulmonary function (COPD) Other Risk Factors: Yes Each Risk Factor Represents 2 Points: Age 61-74 years Other congenital or acquired thrombophilia - If yes, enter type in comment: No Thrombosis Risk Factor Assessment Total Risk Factor Score: 3 Thrombosis Risk Factor Assessment Level: Moderate Risk Assessment and Plan Assessment: (1) chest pain 1 month, acute coronary event ruled out as per cardiology suspect muscle skeletal (2) Chronic obstructive pulmonary disease, stable Current Visit: Yes Status: Acute Code(s): J44.9 - CHRONIC OBSTRUCTIVE PULMONARY DISEASE, UNSPECIFIED SNOMED Code(s): 38567100 (3) Essential (primary) hypertension Current Visit: Yes Status: Acute Code(s): I10 - ESSENTIAL (PRIMARY) HYPERTENSION SNOMED Code(s): 99580313 (4) Paroxysmal atrial fibrillation Current Visit: Yes Status: Acute Code(s): I48.0 - PAROXYSMAL ATRIAL FIBRILLATION SNOMED Code(s): 577493928 (5) Ongoing nicotine dependence Current Visit: Yes Status: Acute Code(s): Z72.0 - TOBACCO USE SNOMED Code(s): 814669610 (6) peripheral vascular disease Plan: Continue on current medication regime ,monitoring and symptomatically treatment. Evaluated by cardiology and patient has been cleared for discharge. Patient is being discharged home in a stable condition with guarded prognosis. Advised to follow-up with PCP in 3 days. Further recommendations to follow. The impression and plan of care has been dictated as directed. : I performed a history and examination of this patient, discussed the same with the dictator. I agree with the dictator's note ,documented as a scribe. Any additional findings or plans will be noted.
[2019-06-03] MEDS ORDERED: ASPIRIN 81 MG PO SCH (09:00)
== END 2019-06-02 14:26 | disposition home or self-care (01) ==
LOC: EC 12:43 → 1SOBS 15:43
PROVIDERS: ADMIT Family Medicine; ATTEND Family Medicine
DX: R07.89 Other chest pain (principal); J44.9 Chronic obstructive pulmonary disease, unspecified; I10 Essential (primary) hypertension; I48.0 Paroxysmal atrial fibrillation; I73.9 Peripheral vascular disease, unspecified; F17.210 Nicotine dependence, cigarettes, uncomplicated; E78.5 Hyperlipidemia, unspecified; M19.90 Unspecified osteoarthritis, unspecified site; K21.9 Gastro-esophageal reflux disease without esophagitis; E07.9 Disorder of thyroid, unspecified; R42 Dizziness and giddiness; G89.29 Other chronic pain; M54.9 Dorsalgia, unspecified; F41.9 Anxiety disorder, unspecified; F32.9 Major depressive disorder, single episode, unspecified; M41.9 Scoliosis, unspecified; I07.1 Rheumatic tricuspid insufficiency; Z79.01 Long term (current) use of anticoagulants; Z79.899 Other long term (current) drug therapy; Z79.51 Long term (current) use of inhaled steroids; Z79.1 Long term (current) use of non-steroidal anti-inflammatories (NSAID); Z90.49 Acquired absence of other specified parts of digestive tract
CPT/HCPCS: 93005 ×2; 99285; 36415; 94640; 93306; 85379; 80061; 80053; 82550; 83735; 84484 ×2; 85025; 85610; 85730; 71046; G0378 ×2

== ENCOUNTER 2019-11-20 21:06 | Inpatient (IN) | payer MEDICARE, OTHER ==
[2019-11-20] MEDS ORDERED: SODIUM CHLORIDE 0.9% 1,000 ML IV STA (21:44)
--- NOTE | 2019-11-20 22:09 | CT ---
EXAMINATION TYPE: CT brain wo con DATE OF EXAM: 11/20/2019 COMPARISON: 11/05/2016 HISTORY: Seizure. CT DLP: 1125.4 mGycm Automated exposure control for dose reduction was used. There is cerebral cortical atrophy. There is no mass effect nor midline shift. There is no sign of in tracranial hemorrhage. Calvarium is intact. Skull base is intact. IMPRESSION: Cerebral atrophy. No acute intracranial abnormality. No change compared to old exam.
--- NOTE | 2019-11-20 22:10 | XR ---
EXAMINATION TYPE: XR chest 2V DATE OF EXAM: 11/20/2019 COMPARISON: 06/01/2019 HISTORY: Altered mental status TECHNIQUE: FINDINGS: Heart is normal. There is pulmonary hyperinflation with flattening of the diaphragm. Thorac ic aorta is atheromatous. There are no hilar masses. There is no pleural effusion. Bony thorax is int act. IMPRESSION: COPD. No acute lung disease. No change.
[2019-11-20 22:11] LABS: Basophils # (A) 0.1 k/uL (0-0.2); Basophils % (A) 1 %; Eosinophils # (A) 0.1 k/uL (0-0.7); Eosinophils % (A) 0 %; HCT 49.2 % (34.0-46.0); HGB 16.2 gm/dL (11.4-16.0); Lymphocytes # (A) 0.8 k/uL (1.0-4.8); Lymphocytes % (A) 6 %; MCH 31.5 pg (25.0-35.0); MCHC 32.9 g/dL (31.0-37.0); MCV 95.8 fL (80.0-100.0); Mean Platelet Volume 7.6; Monocytes # (A) 0.6 k/uL (0-1.0); Monocytes % (A) 4 %; Neutrophils # (A) 12.1 k/uL (1.3-7.7); Neutrophils % (A) 88 %; Platelet Count 384 k/uL (150-450); RBC 5.14 m/uL (3.80-5.40); WBC 13.8 k/uL (3.8-10.6)
--- NOTE | 2019-11-20 22:15 | ED ---
General Adult HPI - General Chief complaint: Seizure Stated complaint: seizures Time Seen by Provider: 11/20/19 21:30 Source: patient, family Mode of arrival: ambulatory Limitations: no limitations - History of Present Illness Initial comments: 73-year-old female patient with past medical history significant for chronic chest pain, COPD, type cholesterol, hypertension, hyponatremia presents to the emergency department today for evaluation after having a possible seizure. Patient's friend and caregiver states that she was sitting on the couch and she slumped forward and had generalized body shaking. States when the episode ended it took her some time to continue talking. Patient denies history of seizures denies taking any medications for seizures. Denies any recent head injury. States she is having chest pain and shortness of breath but states that she has this almost daily. States it is intermittent. Patient denies headache, blurred vision, or double vision. Denies numbness or tingling. States she feels very weak. Does admit to drinking 2 beers today which is unusual for her. Patient and friend state that she has not had any food over the last 2 days. Patient denies any recent rash, fever, chills, cough, nausea, vomiting, diarrhea, constipation, back pain, hematuria, dysuria, urinary urgency, urinary frequency, headache, visual changes, or any other complaints. - Related Data Home Medications Medication Instructions Recorded Confirmed Meclizine [Antivert] 25 mg PO DAILY PRN 12/03/15 06/01/19 Omeprazole [PriLOSEC] 20 mg PO DAILY 08/26/16 06/01/19 HYDROcodone/APAP 7.5-325MG [[place] 1 tab PO Q6H PRN 07/18/18 06/01/19 7.5-325] Albuterol Inhaler (Mhu) [Ventolin 2 puff INHALATION RT-Q6H PRN 06/01/19 06/01/19 Hfa Inhaler (Mhu)] Budesonide-Formot 160-4.5 Mcg 1 puff INHALATION RT-BID 06/01/19 06/01/19 [Symbicort 160-4.5 Mcg Inhaler] OLANZapine [ZyPREXA] 5 mg PO DAILY 06/01/19 06/01/19 amLODIPine [Norvasc] 5 mg PO DAILY 03/12/20 03/12/20 lisinopriL 20 mg PO DAILY 06/01/19 06/01/19 Previous Rx's Medication Instructions Recorded Apixaban [Eliquis] 5 mg PO BID #60 tab 07/21/18 Allergies Allergy/AdvReac Type Severity Reaction Status Date / Time No Known Allergies Allergy Verified 11/20/19 21:19 Review of Systems ROS Statement: Those systems with pertinent positive or pertinent negative responses have been documented in the HPI. ROS Other: All systems not noted in ROS Statement are negative. Past Medical History Past Medical History: Chest Pain / Angina, COPD, GERD/Reflux, Hyperlipidemia, Hypertension, Osteoarthritis (OA), Thyroid Disorder Additional Past Medical History / Comment(s): occ. DIZZINESS, CHRONIC BACK PAIN History of Any Multi-Drug Resistant Organisms: None Reported Past Surgical History: Back Surgery Additional Past Surgical History / Comment(s): triple endo 09/05, January 2018 for gallbladder removal Past Anesthesia/Blood Transfusion Reactions: No Reported Reaction Past Psychological History: Anxiety, Depression Smoking Status: Current some day smoker Past Alcohol Use History: Occasional Past Drug Use History: None Reported - Past Family History Mother Family Medical History: Unable to Obtain Additional Family Medical History / Comment(s): WAS ADOPTED. General Exam Limitations: no limitations General appearance: alert, in no apparent distress, other (This is a thin, ill- appearing elderly female patient in no acute distress. Vital signs upon presentation are temperature 97.4F, pulse 67, respirations 16, blood pressure 171/46, pulse ox 91% on room air.) Eye exam: Present: normal appearance, PERRL, EOMI. Absent: scleral icterus, conjunctival injection, nystagmus, periorbital swelling ENT exam: Present: normal exam, normal oropharynx, mucous membranes moist Respiratory exam: Present: normal lung sounds bilaterally. Absent: respiratory distress, wheezes, rales, rhonchi, stridor Cardiovascular Exam: Present: normal rhythm, tachycardia, normal heart sounds. Absent: systolic murmur, diastolic murmur, rubs, gallop, clicks GI/Abdominal exam: Present: soft, tenderness (Generally), normal bowel sounds. Absent: distended, guarding, rebound, rigid Neurological exam: Present: alert, oriented X3, CN II-XII intact Psychiatric exam: Present: normal affect, normal mood Skin exam: Present: warm, dry, intact, normal color. Absent: rash Course Vital Signs 11/20/19 11/20/19 11/20/19 21:14 21:29 22:26 Temperature 97.4 F L Pulse Rate 67 108 H 104 H Respiratory 16 28 H 26 H Rate Blood Pressure 71/46 58/47 90/62 O2 Sat by Pulse 91 L 100 100 Oximetry 11/20/19 23:20 Temperature Pulse Rate 105 H Respiratory 20 Rate Blood Pressure 97/62 O2 Sat by Pulse 99 Oximetry EKG Findings - EKG Comments: EKG Findings:: EKG obtained at 2131 shows a flutter with a variable AV block. Ventricular rate is 108, QR adventist 78, QT 360, QTC 482. There was questionable ST depression in the inferolateral leads. EKG #2 was obtained at 2300 shows atrial flutter with variable AV block with a rate of 82, QR adventist 84, QT 442, QTc 516. Depression does seem to be improved. Medical Decision Making - Medical Decision Making 73-year-old female patient presents to the emergency department today for evaluation after having an episode where she slumped forward had generalized shaking, was confused afterwards. Patient is also reporting generalized weakness and chest discomfort upon arrival. Patient initially was hypotensive with a blood pressure of 71/46. She was given IV fluids and did have some improvement blood pressures. Labs reviewed and did reveal mildly elevated white blood cell count at 13,000. Decreased sodium at 127, increased BUN and creati nine. She also had elevated troponin 0.046. Patient's EKG did reveal new changes concerning for some ST depression in the inferior lateral leads, also shows atrial flutter which is new for patient. The patient does currently take Eliquis. She will be admitted to the hospital for further evaluation by cardiology as well as neurology first-degree versus seizure. We will continue IV fluids. Patient has been unable to provide a urine sample, at this point no evidence for infection and she is afebrile. - Lab Data Result diagrams: 11/20/19 21:51 11/20/19 21:51 Lab Results 11/20/19 11/20/19 11/20/19 Range/Units 21:51 21:51 21:51 WBC 13.8 H (3.8-10.6) k/uL RBC 5.14 (3.80-5.40) m/uL Hgb 16.2 H (11.4-16.0) gm/dL Hct 49.2 H (34.0-46.0) % MCV 95.8 (80.0-100.0) fL MCH 31.5 (25.0-35.0) pg MCHC 32.9 (31.0-37.0) g/dL RDW 13.0 (11.5-15.5) % Plt Count 384 (150-450) k/uL Neutrophils % 88 % Lymphocytes % 6 % Monocytes % 4 % Eosinophils % 0 % Basophils % 1 % Neutrophils # 12.1 H (1.3-7.7) k/uL Lymphocytes # 0.8 L (1.0-4.8) k/uL Monocytes # 0.6 (0-1.0) k/uL Eosinophils # 0.1 (0-0.7) k/uL Basophils # 0.1 (0-0.2) k/uL PT 9.9 (9.0-12.0) sec INR 0.9 (<1.2) APTT 24.4 (22.0-30.0) sec Sodium 127 L (137-145) mmol/L Potassium 3.9 (3.5-5.1) mmol/L Chloride 88 L (98-107) mmol/L Carbon Dioxide 15 L (22-30) mmol/L Anion Gap 24 mmol/L BUN 30 H (7-17) mg/dL Creatinine 1.50 H (0.52-1.04) mg/dL Est GFR (CKD-EPI)AfAm 40 (>60 ml/min/1.73 sqM) Est GFR (CKD-EPI)NonAf 35 (>60 ml/min/1.73 sqM) Glucose 92 (74-99) mg/dL Calcium 9.6 (8.4-10.2) mg/dL Total Bilirubin 3.7 H (0.2-1.3) mg/dL AST 42 H (14-36) U/L ALT 23 (4-34) U/L Alkaline Phosphatase 71 (38-126) U/L Troponin I (0.000-0.034) ng/mL Total Protein 6.8 (6.3-8.2) g/dL Albumin 4.2 (3.5-5.0) g/dL 11/20/19 Range/Units 21:51 WBC (3.8-10.6) k/uL RBC (3.80-5.40) m/uL Hgb (11.4-16.0) gm/dL Hct (34.0-46.0) % MCV (80.0-100.0) fL MCH (25.0-35.0) pg MCHC (31.0-37.0) g/dL RDW (11.5-15.5) % Plt Count (150-450) k/uL Neutrophils % % Lymphocytes % % Monocytes % % Eosinophils % % Basophils % % Neutrophils # (1.3-7.7) k/uL Lymphocytes # (1.0-4.8) k/uL Monocytes # (0-1.0) k/uL Eosinophils # (0-0.7) k/uL Basophils # (0-0.2) k/uL PT (9.0-12.0) sec INR (<1.2) APTT (22.0-30.0) sec Sodium (137-145) mmol/L Potassium (3.5-5.1) mmol/L Chloride (98-107) mmol/L Carbon Dioxide (22-30) mmol/L Anion Gap mmol/L BUN (7-17) mg/dL Creatinine (0.52-1.04) mg/dL Est GFR (CKD-EPI)AfAm (>60 ml/min/1.73 sqM) Est GFR (CKD-EPI)NonAf (>60 ml/min/1.73 sqM) Glucose (74-99) mg/dL Calcium (8.4-10.2) mg/dL Total Bilirubin (0.2-1.3) mg/dL AST (14-36) U/L ALT (4-34) U/L Alkaline Phosphatase (38-126) U/L Troponin I 0.046 H* (0.000-0.034) ng/mL Total Protein (6.3-8.2) g/dL Albumin (3.5-5.0) g/dL - Radiology Data Radiology results: report reviewed, image reviewed Two-view x-ray of the chest is obtained. Report was reviewed in its entirety. Impression by Dr. Gomez shows COPD. No acute lung disease. No change. CT brain without contrast was obtained. Report was reviewed in its entirety. Impression by Dr. Gomez shows cerebral atrophy. No acute intracranial abnormality. No change compared to old exam. Disposition Clinical Impression: New onset seizure, Chest pain, Hypotension Disposition: ADMITTED IP TO THIS [facility] Condition: Serious Referrals: Randell Virk Jr, [Primary Care Provider] - 1-2 days Decision to Admit Reason: Admit from [facility] Decision Date: 11/20/19 Decision Time: 23:27
[2019-11-20 22:16] LABS: Albumin 4.2 g/dL (3.5-5.0); Calcium 9.6 mg/dL (8.4-10.2); Potassium 3.9 mmol/L (3.5-5.1); Total Bilirubin 3.7 mg/dL (0.2-1.3); Total Protein 6.8 g/dL (6.3-8.2)
[2019-11-20 22:17] LABS: INR 0.9 (<1.2); Partial Thromboplastin Time 24.4 sec (22.0-30.0); Prothrombin Time 9.9 sec (9.0-12.0)
[2019-11-20] MEDS ORDERED: SODIUM CHLORIDE 0.9% 500 ML 500 ML IV ONE (23:18)
[2019-11-20] MEDS ORDERED: ASPIRIN 81 MG PO STA (23:24)
[2019-11-20] MEDS ORDERED: NITROGLYCERIN SL TABS 0.4 MG TAB SUBLINGUAL PRN (23:24)
[2019-11-20 23:44] LABS: Appearance,Urine Cloudy (Clear); Bacteria,Urine Rare /hpf; Bilirubin,Urine Negative (Negative); Blood,Urine Trace (Negative); Budding Yeast,Urine Few /hpf; Color,Urine Yellow; Glucose,Urine (UA) 1+ (Negative); Granular Casts,Urine 29 /lpf (0); Hyaline Casts,Urine 138 /lpf (0-2); Ketones,Urine Trace (Negative); Leukocyte Esterase,Urine Negative (Negative); Mucus,Urine Occasional /hpf; Nitrite,Urine Negative (Negative); PH, Urine 6.5 (5.0-8.0); Protein,Urine 2+ (Negative); RBC,Urine 3 /hpf (0-5); Specific Gravity,Urine 1.011 (1.001-1.035); Squamous Epithelial Cell,Urine 4 /hpf (0-4); Urobilinogen,Urine <2.0 mg/dL (<2.0); WBC,Urine 7 /hpf (0-5)
[2019-11-20] MEDS: SODIUM CHLORIDE 0.9% 1,000 ML IV SCH (23:56)
[2019-11-21 04:07] LABS: Cholesterol 166 mg/dL (<200); HDL Cholesterol 56 mg/dL (40-60); LDL Cholesterol,Calculated 93 mg/dL (0-99); Triglycerides 86 mg/dL (<150)
[2019-11-21] MEDS: SODIUM CHLORIDE 0.9% 1,000 ML IV SCH ×3 (06:07→22:45)
--- NOTE | 2019-11-21 08:24 | P.CNNES ---
History of Present Illness Consult date: 11/21/19 Requesting physician: Alexandra Choi Reason for Consult: possible new onset seizure History of Present Illness: This is a 73-year-old right-handed female with medical history of hypertension, episode of hyponatremia, hypercholesterolemia, COPD that presented to the emergency department on the 11/20/2019 for episode of shaking episode of extremities concern for seizure. Per medical records and patient's friend and caregiver stated that the patient was sitting on a couch and she slumped forward and had generalized body shaking. When the shaking episode ended that it occurred sometime to get back to baseline. Patient does not have history of seizure. Denies any recent head injury. Denies headache blurred vision double vision numbness. It's mentioned that she drank 2 beers the day of presentation which is unusual. She has not been eating in the last 2 days. Upon seeing the patient, she stated she was sitting on the couch then all the sudden she felt dizzy and light-headed then after that she does not remember what happened but was told she was shaking of all extremities. She denies urinary or bowel incontinence or having tongue or soreness of tongue after she was back to baseline. She denies of history of seizure. She is adopted and does not know her history or her biological family history. She denies fever chills nausea, vomiting or diarrhea. She denies been switched on any or her medication. She overtaking her blood pressure medication. She said she just recently stopped smoking tobacco in past 1 1/2 weeks. She has smoking 1 pack per day for >40 years. Initial vital signs were blood pressure was 71/46 and the heart rate was 67, respiratory was 16, temperature of 97.4 Fahrenheit, pulse ox 91 that liters at room air. Her blood pressure has been hypotensive the initially and then the next read was 58/47 the last read on 11/21/2019 at 750 and was read as 167/70. CT of the head was reported as cerebral atrophy. No acute intracranial abnormality. No change compared to old exam. And previous old CT was on 11/05/2016. I reviewed the records CT of the head and don't see any acute ischemia hemorrhage. EKG was reported as atrial flutter with variable AV block. Septal infarct, age undetermined. ST and T-wave abnormality consider inferior ischemia. Prolonged QT. Ventricular rate of 82. White blood cell is up on presentation is 13.8 neutrophilic of 12.1. The sodium is 127 on presentation. Upon reviewing the medical record the her sodium as she had episodes of 121 the and 125 on 2018 otherwise her sodium has been in the range of 131 the to 137 as a baseline. Retina in is 1.50 which is elevated then her baseline. Her troponins were elevated 0.04 6.051 0.064. AST of 40 to ALTs of 23. Review of Systems Review of system: The 12 point system was reviewed and apparent positive and negative per HPI. ROS unobtainable: due to endotracheal tube Past Medical History Past Medical History: Chest Pain / Angina, COPD, GERD/Reflux, Hyperlipidemia, Hypertension, Osteoarthritis (OA), Thyroid Disorder Additional Past Medical History / Comment(s): occ. DIZZINESS, CHRONIC BACK PAIN History of Any Multi-Drug Resistant Organisms: None Reported Past Surgical History: Back Surgery Additional Past Surgical History / Comment(s): triple endo January 2018 for gallbladder removal Past Anesthesia/Blood Transfusion Reactions: No Reported Reaction Past Psychological History: Anxiety, Depression Smoking Status: Former smoker Past Alcohol Use History: Occasional Past Drug Use History: None Reported - Past Family History Mother Family Medical History: Unable to Obtain Additional Family Medical History / Comment(s): WAS ADOPTED. Medications and Allergies Home Medications Medication Instructions Recorded Confirmed Type Meclizine [Antivert] 25 mg PO DAILY PRN 12/03/15 11/21/19 History Omeprazole [PriLOSEC] 20 mg PO DAILY 08/26/16 11/21/19 History HYDROcodone/APAP 7.5-325MG [[place] 1 tab PO Q6H PRN 07/18/18 11/21/19 History 7.5-325] Apixaban [Eliquis] 5 mg PO BID #60 tab 07/21/18 11/21/19 Rx Budesonide-Formot 160-4.5 Mcg 1 puff INHALATION RT-BID 06/01/19 11/21/19 History [Symbicort 160-4.5 Mcg Inhaler] OLANZapine [ZyPREXA] 5 mg PO DAILY 06/01/19 11/21/19 History amLODIPine [Norvasc] 5 mg PO DAILY 06/01/19 11/21/19 History lisinopriL 20 mg PO DAILY 06/01/19 11/21/19 History Albuterol Sulfate [Albuterol 2 puff PO RT-Q6H PRN 11/21/19 11/21/19 History Sulfate Hfa] Chlorthalidone 25 mg PO DAILY 11/21/19 11/21/19 History Fludrocortisone [Florinef] 0.1 mg PO DAILY 11/21/19 11/21/19 History Simvastatin [Zocor] 20 mg PO DAILY 11/21/19 11/21/19 History Allergies Allergy/AdvReac Type Severity Reaction Status Date / Time No Known Allergies Allergy Verified 11/20/19 21:19 Physical Examination - Vital Signs Vital Signs: Vital Signs Temp Pulse Pulse Resp BP BP Pulse Ox 11/21/19 04:00 97.9 F 76 18 133/66 96 11/21/19 00:15 97.5 F L 95 19 117/64 99 11/20/19 23:20 105 H 20 97/62 99 11/20/19 22:26 104 H 26 H 90/62 100 11/20/19 21:29 108 H 28 H 58/47 100 11/20/19 21:14 97.4 F L 67 16 71/46 91 L Intake and Output 11/20/19 11/21/19 11/21/19 22:59 06:59 14:59 Other: Weight 47.627 kg 44.58 kg GENERAL: The patient is lying in bed and is not in acute distress. CHEST: The heart rate is regular rate rhythm. No murmurs to auscultation. No carotid bruit bilaterally. LUNG: Clear to auscultation bilaterally no wheezing noted throughout. Not labored breathing. ABDOMEN/GI: Bowel sounds present in all 4 quadrants. No tenderness to palpation throughout. NEUROLOGICAL: Higher mental function: The patient is awake, alert, oriented to self, place and time. Patient is following commands. No aphasia and no neglect. Cranial nerves: The pupils are round, equal and reactive to light and accommodation. Visual rolle are full to confrontation throughout. Extraocular movement is intact no nystagmus is noted. Facial sensation is normal to touch throughout. The facial strength is normal throughout. Hearing is normal bilaterally to hand rub. Tongue is midline and moved [id number] without any difficulty. No dysarthria is noted. Shoulder shrug is normal bilaterally. Motor: Gait is defered. The strength is 5 over 5 throughout. Normal tone and bulk. Cerebellum: Normal finger to nose heel to chin bilaterally. Sensation: Sensation is normal to touch throughout. Reflexes (right/left): 1+ throughout. Plantars are downgoing bilaterally. Results Lipid panel is triglyceride of 86 cholesterol of 166, LDL of 93 HDL of 56. UA and appeared cloudy the right nitrates were negative leuks esters were negative the urine white blood cell was 7 urine bacteria were rare. - Laboratory Findings CBC and BMP: 11/20/19 21:51 11/21/19 11:31 Abnormal Lab Findings: Abnormal Labs 11/20/19 11/20/19 11/20/19 21:51 21:51 21:51 WBC 13.8 H Hgb 16.2 H Hct 49.2 H Neutrophils # 12.1 H Lymphocytes # 0.8 L Sodium 127 L Chloride 88 L Carbon Dioxide 15 L BUN 30 H Creatinine 1.50 H Total Bilirubin 3.7 H AST 42 H Troponin I 0.046 H* Urine Appearance Urine Protein Urine Glucose (UA) Urine Ketones Urine Blood Urine WBC Urine WBC Clumps Urine Bacteria Hyaline Casts Urine Mucus Urine Yeast (Budding) 11/20/19 11/21/19 11/21/19 23:30 00:23 03:42 WBC Hgb Hct Neutrophils # Lymphocytes # Sodium Chloride Carbon Dioxide BUN Creatinine Total Bilirubin AST Troponin I 0.051 H* 0.064 H* Urine Appearance Cloudy H Urine Protein 2+ H Urine Glucose (UA) 1+ H Urine Ketones Trace H Urine Blood Trace H Urine WBC 7 H Urine WBC Clumps Few H Urine Bacteria Rare H Hyaline Casts 138 H Urine Mucus Occasional H Urine Yeast (Budding) Few H Assessment and Plan Assessment: This is a 73-year-old female with medical history of hypertension, episode of hyponatremia, hyper cholesterolemia, COPD [facility] for possible seizure activity. Per medical records and patient's friend and caregiver stated that the patient was sitting on a couch and she slumped forward and had generalized body shaking. When the shaking episode ended that it occurred sometime to get back to baseline. Patient does not have history of seizure. Denies any recent head injury. Denies headache blurred vision double vision numbness. It's mentioned that she drank 2 beers the day of presentation which is unusual. She has not been eating in the last 2 days. Denies any fever chills nausea vomiting diarrhea. Episode of feeling dizzy and lightheaded prior to episode followed by unresponsiveness with shaking: Likely syncope/cardiology etiology (Presented with hypotensive, elevated troponin). Cannot rule out seizure. Hyponatremia JEREMIAH on CKI Hypotensive---resolved Elevated troponin Atrial flutter Hx of HTN Plan: Because the patient the on unresponsiveness and with the shaking episode I will order EEG. I will not start any antiepileptic medication unless patient has an at a clear seizure on the EEG or interictal activity. If she continues to have them then recommend serial EEG or even skilled nursing EEG. Recommend orthostatic vitals and consider tilt table test. Recommend corrected in the the sodium slowly. We'll defer the management of JEREMIAH on chronic kidney insufficiency as well as the hyponatremia management to the primary team. Regarding the elevated troponin the atrial flutter cardiology is on board. Recommend that 2-D echo but will defer that to the primary as well as the cardiology team. Thank you for the consult. Issac Cadet M.D. Neuro-hospitalist Time with Patient: Greater than 30
[2019-11-21] MEDS ORDERED: ASPIRIN 325 MG TAB PO SCH (09:00)
[2019-11-21] MEDS ORDERED: ALBUTEROL NEBULIZED 2.5 MG/3 ML INHALATION PRN (09:28)
[2019-11-21] MEDS: CHLORTHALIDONE 25 MG TAB PO SCH (10:08)
[2019-11-21] MEDS: APIXABAN 5 MG TAB PO SCH ×2 (10:08→19:52)
[2019-11-21] MEDS: MECLIZINE 25 MG TAB PO PRN (10:08)
[2019-11-21] MEDS: ATORVASTATIN 10 MG TAB PO SCH (10:08)
[2019-11-21] MEDS: METOPROLOL TARTRATE 12.5 MG TAB PO SCH (10:08)
[2019-11-21] MEDS: amLODIPine 5 MG TAB PO SCH (10:08)
[2019-11-21] MEDS: PANTOPRAZOLE 40 MG TABLET PO SCH (10:08)
--- NOTE | 2019-11-21 10:28 | P.CRDCN ---
History of Present Illness Consult date: 11/21/19 History of present illness: CHIEF COMPLAINT: Elevated troponin HISTORY OF PRESENT ILLNESS: 73-year-old female with previous history of COPD, hyperlipidemia, hypertension, and paroxysmal atrial fibrillation who presented to the emergency room for a possible seizure. Patient follows in the office with Dr. Cortes. Cardiology was consulted for further evaluation. Patient examined this morning at the bedside. Patient states she was at home drinking beer. She went to the bathroom and began feeling dizzy and lightheaded. Haydee arently she began shaking and then slumped over on the toilet. Patient reports having some epigastric discomfort this morning. She denies shortness of breath. Denies dizziness or lightheadedness this morning. DIAGNOSTICS: EKG reveals atrial fibrillation. Heart rate 82 Chest xray COPD. No acute lung disease. Laboratory data: WBC 13.8. Hemoglobin 16.2. Platelet count 384. Sodium 127. BUN 30. Creatinine 1.50. Troponin 0.046. 0.051. 0.064. Current home cardiac medications include lisinopril 20 mg daily, Norvasc 5 mg daily, chlorthalidone 25 mg daily, and Eliquis 5 mg twice a day Echocardiogram completed in May 2019 revealed ejection fraction of 60-65% REVIEW OF SYSTEMS: CONSTITUTIONAL: Denies fever or chills. Reports feeling dizzy and lightheaded yesterday. HEENT: Denies blurred vision, vision changes, or eye pain. Denies hemoptysis CARDIOVASCULAR: Denies chest pain, orthopnea, PND or palpitations RESPIRATORY: No shortness of breath. GASTROINTESTINAL: Denies abdominal pain. Denies nausea or vomiting. HEMATOLOGIC: Denies bleeding disorders. GENITOURINARY: Denies any blood in urine. SKIN: Denies pruitis. Denies rash. PHYSICAL EXAM: VITAL SIGNS: Reviewed. GENERAL: Well-developed in no acute distress. HEENT: Head is normocephalic. Pupils are equal, round. Sclerae anicteric. Mucous membranes of the mouth are moist. Neck supple. No JVD or thyromegaly LUNGS: Respirations even and unlabored. Lungs essentially clear to auscultation bilaterally. HEART: Irregular rate and rhythm. S1 and S2 heard. ABDOMEN: Soft. Nondistended. Nontender. Patient with mild tenderness at epigastric region. EXTREMITIES: Normal range of motion. No clubbing or cyanosis. Peripheral pulses intact. No lower extremity edema NEUROLOGIC: Awake and alert. Oriented x 3. ASSESSMENT: Possible seizure/syncope Atypical chest pain, elevated troponins do not suggest acute myocardial injury Paroxysmal atrial fibrillation, on long-term anticoagulation with Eliquis Hypertension Hyperlipidemia COPD Acute on chronic kidney disease PLAN: -Resume home cardiac medications including lisinopril, Norvasc, chlorthalidone, and Eliquis -Discontinue aspirin -Repeat echocardiogram -Neurology following Nurse practitioner note has been reviewed by physician. Signing provider agrees with the documented findings, assessment, and plan of care. Past Medical History Past Medical History: Chest Pain / Angina, COPD, GERD/Reflux, Hyperlipidemia, Hypertension, Osteoarthritis (OA), Thyroid Disorder Additional Past Medical History / Comment(s): occ. DIZZINESS, CHRONIC BACK PAIN History of Any Multi-Drug Resistant Organisms: None Reported Past Surgical History: Back Surgery Additional Past Surgical History / Comment(s): triple endo January 2018 for gallbladder removal Past Anesthesia/Blood Transfusion Reactions: No Reported Reaction Past Psychological History: Anxiety, Depression Smoking Status: Former smoker Past Alcohol Use History: Occasional Past Drug Use History: None Reported - Past Family History Mother Family Medical History: Unable to Obtain Additional Family Medical History / Comment(s): WAS ADOPTED. Medications and Allergies Home Medications Medication Instructions Recorded Confirmed Type Meclizine [Antivert] 25 mg PO DAILY PRN 12/03/15 11/21/19 History Omeprazole [PriLOSEC] 20 mg PO DAILY 08/26/16 11/21/19 History HYDROcodone/APAP 7.5-325MG [[place] 1 tab PO Q6H PRN 07/18/18 11/21/19 History 7.5-325] Apixaban [Eliquis] 5 mg PO BID #60 tab 07/21/18 11/21/19 Rx Budesonide-Formot 160-4.5 Mcg 1 puff INHALATION RT-BID 06/01/19 11/21/19 History [Symbicort 160-4.5 Mcg Inhaler] OLANZapine [ZyPREXA] 5 mg PO DAILY 06/01/19 11/21/19 History amLODIPine [Norvasc] 5 mg PO DAILY 06/01/19 11/21/19 History lisinopriL 20 mg PO DAILY 03/12/20 09/01/20 History Albuterol Sulfate [Albuterol 2 puff PO RT-Q6H PRN 11/21/19 11/21/19 History Sulfate Hfa] Chlorthalidone 25 mg PO DAILY 11/21/19 11/21/19 History Fludrocortisone [Florinef] 0.1 mg PO DAILY 11/21/19 11/21/19 History Simvastatin [Zocor] 20 mg PO DAILY 11/21/19 11/21/19 History Allergies Allergy/AdvReac Type Severity Reaction Status Date / Time No Known Allergies Allergy Verified 11/20/19 21:19 Physical Exam Vitals: Vital Signs Temp Pulse Pulse Resp BP BP Pulse Ox 11/21/19 07:50 98.5 F 70 16 167/70 96 11/21/19 04:00 97.9 F 76 18 133/66 96 11/21/19 00:15 97.5 F L 95 19 117/64 99 11/20/19 23:20 105 H 20 97/62 99 11/20/19 22:26 104 H 26 H 90/62 100 11/20/19 21:29 108 H 28 H 58/47 100 11/20/19 21:14 97.4 F L 67 16 71/46 91 L Intake and Output 11/20/19 11/21/19 11/21/19 22:59 06:59 14:59 Intake Total 0 Balance 0 Intake: Oral 0 Other: Weight 47.627 kg 44.58 kg Results 11/20/19 21:51 11/20/19 21:51 Cardiac Enzymes 11/20/19 11/20/19 11/21/19 Range/Units 21:51 21:51 00:23 AST 42 H (14-36) U/L Troponin I 0.046 H* 0.051 H* (0.000-0.034) ng/mL 11/21/19 Range/Units 03:42 AST (14-36) U/L Troponin I 0.064 H* (0.000-0.034) ng/mL Coagulation 11/20/19 Range/Units 21:51 PT 9.9 (9.0-12.0) sec APTT 24.4 (22.0-30.0) sec Lipids 11/21/19 Range/Units 03:42 Triglycerides 86 (<150) mg/dL Cholesterol 166 (<200) mg/dL HDL Cholesterol 56 (40-60) mg/dL CBC 11/20/19 Range/Units 21:51 WBC 13.8 H (3.8-10.6) k/uL RBC 5.14 (3.80-5.40) m/uL Hgb 16.2 H (11.4-16.0) gm/dL Hct 49.2 H (34.0-46.0) % Plt Count 384 (150-450) k/uL Comprehensive Metabolic Panel 11/20/19 Range/Units 21:51 Sodium 127 L (137-145) mmol/L Potassium 3.9 (3.5-5.1) mmol/L Chloride 88 L (98-107) mmol/L Carbon Dioxide 15 L (22-30) mmol/L BUN 30 H (7-17) mg/dL Creatinine 1.50 H (0.52-1.04) mg/dL Glucose 92 (74-99) mg/dL Calcium 9.6 (8.4-10.2) mg/dL AST 42 H (14-36) U/L ALT 23 (4-34) U/L Alkaline Phosphatase 71 (38-126) U/L Total Protein 6.8 (6.3-8.2) g/dL Albumin 4.2 (3.5-5.0) g/dL Current Medications Generic Name Dose Route Start Last Admin Trade Name Freq PRN Reason Stop Dose Admin Hydrocodone Bitart/Acetaminophen 1 each 11/21/19 09:28 [place] 7.5-325 PO Q6H PRN Pain Albuterol Sulfate 2.5 mg 11/21/19 09:28 Ventolin Nebulized INHALATION RT-Q6H PRN Shortness Of Breath Amlodipine Besylate 5 mg 11/21/19 09:30 11/21/19 10:08 Norvasc PO 5 mg DAILY SEAN Administration Apixaban 5 mg 11/21/19 09:30 11/21/19 10:08 Eliquis PO 5 mg BID SEAN Administration Aspirin 325 mg 11/21/19 09:00 11/21/19 08:03 Aspirin PO 325 mg DAILY SEAN Administration Atorvastatin Calcium 10 mg 11/21/19 09:30 11/21/19 10:08 Lipitor PO 10 mg DAILY SEAN Administration Budesonide/Formoterol Fumarate 2 puff 11/21/19 20:00 Symbicort 160-4.5 Mcg Inhaler INHALATION RT-BID SEAN Chlorthalidone 25 mg 11/21/19 09:30 11/21/19 10:08 [place] PO 25 mg DAILY SEAN Administration Fludrocortisone Acetate 0.1 mg 11/21/19 09:30 Florinef PO DAILY SEAN Sodium Chloride 1,000 mls @ 136 mls/hr 11/20/19 23:30 11/21/19 06:07 Saline 0.9% IV Not Given .Q7H22M SEAN Lisinopril 20 mg 11/22/19 09:00 Zestril PO DAILY SEAN Meclizine HCl 25 mg 11/21/19 09:28 11/21/19 10:08 Antivert PO 25 mg DAILY PRN Administration DIZZINESS/NAUSEA Metoprolol Tartrate 12.5 mg 11/21/19 09:15 11/21/19 10:08 Lopressor PO 12.5 mg DAILY SEAN Administration Nitroglycerin 0.4 mg 11/20/19 23:24 Nitrostat SUBLINGUAL Q5M PRN Chest Pain Olanzapine 5 mg 11/21/19 09:30 Zyprexa PO DAILY SEAN Pantoprazole Sodium 40 mg 11/21/19 09:30 11/21/19 10:08 Protonix PO 40 mg DAILY ESAN Administration Intake and Output 11/20/19 11/21/19 11/21/19 22:59 06:59 14:59 Intake Total 0 Balance 0 Intake: Oral 0 Other: Weight 47.627 kg 44.58 kg 11/20/19 21:51 11/20/19 21:51
[2019-11-21 12:16] LABS: Calcium 7.8 mg/dL (8.4-10.2); Magnesium 1.9 mg/dL (1.6-2.3); Potassium 3.7 mmol/L (3.5-5.1)
[2019-11-21] MEDS: FLUDROCORTISONE 0.1 MG TAB PO SCH (12:23)
[2019-11-21] MEDS: OLANZapine 5 MG TAB PO SCH (12:23)
[2019-11-21 13:14] LABS: T4, Free (Free Thyroxine) 1.13 ng/dL (0.78-2.19)
[2019-11-21 14:44] VITALS: BMI 16.3
--- NOTE | 2019-11-21 15:14 | EEG ---
ELECTROENCEPHALOGRAM REPORT DATE OF SERVICE: 11/21/2019 CLINICAL HISTORY: This is a 73-year-old female with history of hypertension and COPD, that presented to the emergency department on 11/20/2019 after an episode of unresponsive and was shaking of all extremities. This video EEG was obtained to evaluate for seizure and epileptiform activity. RELEVANT MEDICATION: The patient is not on any centrally active medication. EEG TYPE: A routine 21 channel EEG was performed with video using the 10-20 electrode placement system. DESCRIPTION: Wakefulness is only obtained. During wakefulness, there is a posterior dominant rhythm of low to moderate voltage, reactive, well modulated, of 8-9 hertz activity. There is no stage 2 sleep architecture seen. Occasionally, there is some myogenic artifact over the right temporal region. Interictal and ictal - None. ACTIVATION PROCEDURE: Photic stimulation did not evoke a posterior driving response. Hyperventilation was not performed because of the patient clinical history. EEG DIAGNOSES: This is a normal routine EEG during awake state. CLINICAL INTERPRETATION: This is a normal routine awake EEG. There is no focal slowing. There are no epileptiform activity or seizure seen during this study. Clinical correlation is recommended. MMLUCIEL / IJN: [id number] / MTDKalyan
--- NOTE | 2019-11-21 17:08 | ECHOF ---
Referral Reason:elevated troponins MEASUREMENTS -------- HEIGHT: 165.1 cm WEIGHT: 44.5 kg BP: RVIDd: 3.2 cm (< 3.3) IVSd: 1.1 cm (0.6 - 1.1) LVIDd: 2.9 cm (3.9 - 5.3) LVPWd: 0.9 cm (0.6 - 1.1) IVSs: 1.1 cm LVIDs: 1.9 cm LVPWs: 1.2 cm LA Diam: 3.5 cm (2.7 - 3.8) Ao Diam: 2.7 cm (2.0 - 3.7) MV EXCURSION: 20.499 mm (> 18.000) MV EF SLOPE: 121 mm/s (70 - 150) EPSS: 0.3 cm MV E [place]: 0.75 m/s MV DecT: 161 ms MV A [place]: 0.29 m/s MV E/A Ratio: 2.58 RAP: 5.00 mmHg RVSP: 39.84 mmHg FINDINGS -------- Sinus rhythm. This was a technically adequate study. Views obtained subcostaly due to copd. LV size, wall thickness and systolic function are normal, with an EF greater than 55%. The left balaji tricular size is normal. The right ventricle is normal in size. The left atrial size is normal. The right atrial size is normal. There is mild aortic valve sclerosis. There is no evidence of aortic regurgitation. Lambl's excre sence noted on aortic valve tip. Mild mitral regurgitation is present. Mild tricuspid regurgitation present. There is mild pulmonary hypertension. There is no pulmonic regurgitation present. The aortic root size is normal. There is no pericardial effusion. CONCLUSIONS -------- 1. Views obtained subcostaly due to copd. 2. LV size, wall thickness and systolic function are normal, with an EF greater than 55%. 3. The left ventricular size is normal. 4. The right ventricle is normal in size. 5. The left atrial size is normal. 6. The right atrial size is normal. 7. There is mild aortic valve sclerosis. 8. Mild mitral regurgitation is present. 9. Mild tricuspid regurgitation present. 10. There is mild pulmonary hypertension. 11. There is no pericardial effusion. [employer] SAL[employer] REPRESENTATIVES: Bailee Reynolds RDCS
[2019-11-21] MEDS: SYMBICORT 160-4.5 MCG INHALER INHALATION SCH (19:34)
[2019-11-22] MEDS: SODIUM CHLORIDE 0.9% 1,000 ML IV SCH ×3 (06:05→23:29)
[2019-11-22 07:25] LABS: Basophils % (A) 1 %; Eosinophils # (A) 0.1 k/uL (0-0.7); Eosinophils % (A) 2 %; HCT 34.6 % (34.0-46.0); Lymphocytes # (A) 1.5 k/uL (1.0-4.8); Lymphocytes % (A) 23 %; MCH 31.4 pg (25.0-35.0); MCHC 33.1 g/dL (31.0-37.0); MCV 94.8 fL (80.0-100.0); Mean Platelet Volume 7.4; Monocytes # (A) 0.4 k/uL (0-1.0); Monocytes % (A) 7 %; Neutrophils # (A) 4.2 k/uL (1.3-7.7); Neutrophils % (A) 66 %; Platelet Count 217 k/uL (150-450); RBC 3.65 m/uL (3.80-5.40); RDW 13.1 % (11.5-15.5); WBC 6.4 k/uL (3.8-10.6)
[2019-11-22 07:27] LABS: Calcium 7.7 mg/dL (8.4-10.2); Potassium 2.9 mmol/L (3.5-5.1)
[2019-11-22 07:31] LABS: HGB 11.4 gm/dL (11.4-16.0)
[2019-11-22] MEDS: MECLIZINE 25 MG TAB PO PRN (08:32)
[2019-11-22] MEDS: CHLORTHALIDONE 25 MG TAB PO SCH (08:33)
[2019-11-22] MEDS: POTASSIUM CHLORIDE ER 20 MEQ TAB.ER PO SCH ×6 (08:33→20:24)
[2019-11-22] MEDS: lisinopriL 20 MG TAB PO SCH (08:33)
[2019-11-22] MEDS: METOPROLOL TARTRATE 12.5 MG TAB PO SCH (08:33)
[2019-11-22] MEDS: amLODIPine 5 MG TAB PO SCH (08:33)
[2019-11-22] MEDS: HYDROcodone/APAP 7.5-325MG 1 EACH TAB PO PRN ×2 (08:33→21:50)
[2019-11-22] MEDS: ATORVASTATIN 10 MG TAB PO SCH (08:33)
[2019-11-22] MEDS: APIXABAN 5 MG TAB PO SCH ×2 (08:33→20:24)
[2019-11-22] MEDS: OLANZapine 5 MG TAB PO SCH (08:34)
[2019-11-22] MEDS: PANTOPRAZOLE 40 MG TABLET PO SCH (08:34)
[2019-11-22] MEDS: FLUDROCORTISONE 0.1 MG TAB PO SCH (08:34)
[2019-11-22] MEDS: SYMBICORT 160-4.5 MCG INHALER INHALATION SCH ×2 (09:13→18:40)
--- NOTE | 2019-11-22 11:26 | P.PN ---
Subjective Progress Note Date: 11/22/19 CHIEF COMPLAINT: Elevated troponin HISTORY OF PRESENT ILLNESS: Patient examined this morning the bedside. She denies chest pain. Denies shortness of breath. Blood pressure this morning 176/60. Heart rate in the 60s and 70s. Potassium 2.9. TSH 7.570. Free T4 1.13. PHYSICAL EXAM: VITAL SIGNS: Reviewed. GENERAL: Well-developed in no acute distress. HEENT: Head is normocephalic. Pupils are equal, round. Sclerae anicteric. Mucous membranes of the mouth are moist. Neck supple. No JVD or thyromegaly LUNGS: Respirations even and unlabored. Lungs essentially clear to auscultation bilaterally. HEART: Irregular rate and rhythm. S1 and S2 heard. EXTREMITIES: Normal range of motion. No clubbing or cyanosis. Peripheral pulses intact. No lower extremity edema NEUROLOGIC: Awake and alert. Oriented x 3. ASSESSMENT: Possible seizure/syncope Atypical chest pain, elevated troponins do not suggest acute myocardial injury Paroxysmal atrial fibrillation, on long-term anticoagulation with Eliquis Hypertension Hyperlipidemia COPD Acute on chronic kidney disease\ Abnormal TSH PLAN: Begin Synthroid 25 g daily for abnormal TSH Replace potassium Check magnesium level Discontinue chlorthalidone Increase Lopressor to 25 mg 3 times a day Nurse practitioner note has been reviewed by physician. Signing provider agrees with the documented findings, assessment, and plan of care. Objective - Vital Signs Vital signs: Vital Signs Temp 97.3 F L 11/22/19 08:00 Pulse 66 11/22/19 08:00 Resp 20 11/22/19 08:00 BP 176/68 11/22/19 08:00 Pulse Ox 93 L 11/22/19 08:00 Intake & Output 11/21/19 11/22/19 11/22/19 18:59 06:59 18:59 Intake Total 620 240 Output Total 600 400 Balance 20 -400 240 Weight 44.58 kg 47 kg Intake: Oral 620 240 Output: Urine 600 400 Other: # Voids 1 1 - Labs CBC & Chem 7: 11/22/19 06:53 11/22/19 06:53 Labs: Abnormal Lab Results - Last 24 Hours (Table) 11/21/19 11/22/19 11/22/19 Range/Units 11:31 06:53 06:53 RBC 3.65 L (3.80-5.40) m/uL Sodium 129 L 132 L (137-145) mmol/L Potassium 2.9 L (3.5-5.1) mmol/L BUN 27 H 18 H (7-17) mg/dL Glucose 116 H (74-99) mg/dL Calcium 7.8 L 7.7 L (8.4-10.2) mg/dL TSH 7.570 H (0.465-4.680) mIU/L Microbiology - Last 24 Hours (Table) 11/20/19 21:51 Blood Culture - Preliminary Blood No Growth after 24 hours
--- NOTE | 2019-11-22 13:17 | P.HPIM ---
History of Present Illness H&P Date: 11/21/19 Chief Complaint: possible seizure activity This is a 73-year-old female patient with medical history significant for c COPD, hypertension, hyponatremia, hyperlipidemia PAFIB, presented to the emergency department yesterday for evaluation after having a possible seizure. The Patient's friend and caregiver states that she was sitting on the couch and she slumped forward and had generalized body shaking. States when the episode ended it took her some time to continue talking. Patient denies history of seizures , recent head injury. She lives with her friends.She Drinks 2 beers a day which is unusual for her. Patient denies any recent rash, fever, chills, cough, nausea, vomiting, diarrhea, constipation, back pain, hematuria, dysuria, urinary urgency, urinary frequency, headache, visual changes, or any other complaints. This am, she feels better and denies any c/o other than midepigastric discomfort. She is c/o of some trouble walking. Review of Systems All systems: negative Past Medical History Past Medical History: Atrial Fibrillation, Chest Pain / Angina, COPD, GERD/Ref lux, Hyperlipidemia, Hypertension, Osteoarthritis (OA), Thyroid Disorder Additional Past Medical History / Comment(s): DIZZINESS, CHRONIC BACK PAIN History of Any Multi-Drug Resistant Organisms: None Reported Past Surgical History: Back Surgery Additional Past Surgical History / Comment(s): triple endo January 2018 for gallbladder removal Past Anesthesia/Blood Transfusion Reactions: No Reported Reaction Past Psychological History: Anxiety, Depression Smoking Status: Former smoker Past Alcohol Use History: Occasional Past Drug Use History: None Reported - Past Family History Mother Family Medical History: Unable to Obtain Additional Family Medical History / Comment(s): WAS ADOPTED. Medications and Allergies Home Medications Medication Instructions Recorded Confirmed Type Meclizine [Antivert] 25 mg PO DAILY PRN 12/03/15 11/21/19 History Omeprazole [PriLOSEC] 20 mg PO DAILY 08/26/16 11/21/19 History HYDROcodone/APAP 7.5-325MG [[place] 1 tab PO Q6H PRN 07/18/18 11/21/19 History 7.5-325] Apixaban [Eliquis] 5 mg PO BID #60 tab 07/21/18 11/21/19 Rx Budesonide-Formot 160-4.5 Mcg 1 puff INHALATION RT-BID 06/01/19 11/21/19 History [Symbicort 160-4.5 Mcg Inhaler] OLANZapine [ZyPREXA] 5 mg PO DAILY 06/01/19 11/21/19 History amLODIPine [Norvasc] 5 mg PO DAILY 06/01/19 11/21/19 History lisinopriL 20 mg PO DAILY 06/01/19 11/21/19 History Albuterol Sulfate [Albuterol 2 puff PO RT-Q6H PRN 11/21/19 11/21/19 History Sulfate Hfa] Chlorthalidone 25 mg PO DAILY 11/21/19 11/21/19 History Fludrocortisone [Florinef] 0.1 mg PO DAILY 11/21/19 11/21/19 History Simvastatin [Zocor] 20 mg PO DAILY 11/21/19 11/21/19 History Allergies Allergy/AdvReac Type Severity Reaction Status Date / Time No Known Allergies Allergy Verified 11/20/19 21:19 Physical Exam Vitals: Vital Signs Temp Pulse Resp BP BP BP BP 11/22/19 11:36 97.4 F L 65 16 108/52 11/22/19 08:00 97.3 F L 66 20 176/68 11/22/19 03:56 98.2 F 62 16 150/71 152/75 154/70 11/22/19 00:00 98 F 72 16 150/69 11/21/19 20:00 98.3 F 70 18 114/65 11/21/19 18:52 98.4 F 67 18 132/63 Pulse Ox 11/22/19 11:36 94 L 11/22/19 08:00 93 L 11/22/19 03:56 93 L 11/22/19 00:00 94 L 11/21/19 20:00 96 11/21/19 18:52 93 L Intake and Output 11/21/19 11/22/19 11/22/19 22:59 06:59 14:59 Intake Total 620 240 Output Total 600 400 Balance 20 -400 240 Intake: Oral 620 240 Output: Urine 600 400 Other: # Voids 1 1 Weight 47 kg GENERAL: thin female in no acute distress. HEENT: Head is normocephalic. Pupils are equal, round. Sclerae anicteric. Mucous membranes of the mouth are moist. Neck supple. No JVD or thyromegaly, lympahadenopathy LUNGS: Respirations even and unlabored. Lungs essentially clear to auscultation bilaterally. HEART: Irregular rate and rhythm. S1 and S2 normal ,rate is controlled ABDOMEN: Soft. Nondistended. Nontender. Patient with mild tenderness at epigastric region. no rebound EXTREMITIES: Normal range of motion. No clubbing or cyanosis. Peripheral pulses intact. No lower extremity edema NEUROLOGIC: Awake and alert. Oriented x 3. Results CBC & Chem 7: 11/22/19 06:53 11/22/19 06:53 Labs: Abnormal Lab Results - Last 24 Hours (Table) 11/22/19 11/22/19 Range/Units 06:53 06:53 RBC 3.65 L (3.80-5.40) m/uL Sodium 132 L (137-145) mmol/L Potassium 2.9 L (3.5-5.1) mmol/L BUN 18 H (7-17) mg/dL Calcium 7.7 L (8.4-10.2) mg/dL Microbiology - Last 24 Hours (Table) 11/20/19 21:51 Blood Culture - Preliminary Blood No Growth after 24 hours Chest x-ray: report reviewed CT Scan - head: report reviewed Thrombosis Risk Factor Assmnt - DVT/VTE Prophylaxis DVT/VTE Prophylaxis: Pharmacologic Prophylaxis ordered Assessment and Plan (1) Debility Current Visit: Yes Status: Acute Code(s): R53.81 - OTHER MALAISE SNOMED Code(s): 60853216 (2) Gait abnormality Current Visit: Yes Status: Acute Code(s): R26.9 - UNSPECIFIED ABNORMALITIES OF GAIT AND MOBILITY SNOMED Code(s): 55767267 (3) Hyponatremia Current Visit: Yes Status: Acute Code(s): E87.1 - HYPO-OSMOLALITY AND HYPONATREMIA SNOMED Code(s): 08114521 (4) Hypotension Current Visit: Yes Status: Acute Code(s): I95.9 - HYPOTENSION, UNSPECIFIED SNOMED Code(s): 31785560 (5) New onset seizure Current Visit: Yes Status: Acute Code(s): R56.9 - UNSPECIFIED CONVULSIONS SNOMED Code(s): 87450017 (6) Chronic obstructive pulmonary disease Current Visit: No Status: Acute Code(s): J44.9 - CHRONIC OBSTRUCTIVE PULMONARY DISEASE, UNSPECIFIED SNOMED Code(s): 91986694 (7) Essential (primary) hypertension Current Visit: No Status: Acute Code(s): I10 - ESSENTIAL (PRIMARY) HYPERTENSION SNOMED Code(s): 78569183 (8) Hypokalemia Current Visit: No Status: Acute Code(s): E87.6 - HYPOKALEMIA SNOMED Code(s): 94388760 (9) Paroxysmal atrial fibrillation Current Visit: No Status: Acute Code(s): I48.0 - PAROXYSMAL ATRIAL FIBRILLATION SNOMED Code(s): 251216103 (10) Tobacco abuse Current Visit: No Status: Acute Code(s): Z72.0 - TOBACCO USE SNOMED Code(s): 584800718 Plan: Consult cardiology and Neruology repeat labs in am Seizure precautions reeavaluate her in the next 24hr resume home meds
--- NOTE | 2019-11-22 14:03 | P.PN ---
Subjective Progress Note Date: 11/22/19 The patient was seen at bedside and she said that she was feeling dizzy upon sitting up or standing up when she lies down the the dizziness resolved. She does feel nauseous. She said that she has this chronic ringing in the ears for the past 1 year. Denies hearing loss. Denies any weakness any numbness. Denies any difficulty getting her words out. Objective - Vital Signs Vital signs: Vital Signs Temp 97.4 F L 11/22/19 11:36 Pulse 65 11/22/19 11:36 Resp 16 11/22/19 11:36 BP 108/52 11/22/19 11:36 Pulse Ox 94 L 11/22/19 11:36 Intake & Output 11/21/19 11/22/19 11/22/19 18:59 06:59 18:59 Intake Total 620 240 Output Total 600 400 Balance 20 -400 240 Weight 44.58 kg 47 kg Intake: Oral 620 240 Output: Urine 600 400 Other: # Voids 1 1 - Exam GENERAL: The patient is lying in bed and seemed in mild distress. CHEST: The heart rate is regular rate rhythm. No murmurs to auscultation. LUNG: Clear to auscultation bilaterally no wheezing noted throughout. Not labored breathing. ABDOMEN/GI: Bowel sounds present in all 4 quadrants. No tenderness to palpation throughout. NEUROLOGICAL: Higher mental function: The patient is awake, alert, oriented to self, place but not time. Patient is following commands. No aphasia and no neglect. Cranial nerves: The pupils are round, equal and reactive to light and accommodation. Visual rolle are full to confrontation throughout. Extraocular movement is intact no nystagmus is noted. Facial sensation is normal to touch throughout. The facial strength is normal throughout. Hearing is normal bilaterally to hand rub. Tongue is midline and moved [id number] without any difficulty. No dysarthria is noted. Shoulder shrug is normal bilaterally. Motor: Gait was attempted and she was feeling dizzy upon getting up but was not leaning towards one side or other. Patient walked a few steps and the was a very cautious upon walking. The strength is 5 over 5 throughout. Normal tone and bulk. Cerebellum: Normal finger to nose heel to chin bilaterally. Sensation: Sensation is normal to touch throughout. Reflexes (right/left): 1+ throughout. Plantars are downgoing bilaterally. - Labs CBC & Chem 7: 11/22/19 06:53 11/22/19 06:53 Labs: Abnormal Lab Results - Last 24 Hours (Table) 11/22/19 11/22/19 Range/Units 06:53 06:53 RBC 3.65 L (3.80-5.40) m/uL Sodium 132 L (137-145) mmol/L Potassium 2.9 L (3.5-5.1) mmol/L BUN 18 H (7-17) mg/dL Calcium 7.7 L (8.4-10.2) mg/dL Microbiology - Last 24 Hours (Table) 11/20/19 21:51 Blood Culture - Preliminary Blood No Growth after 24 hours Assessment and Plan Assessment: This is a 73-year-old female with medical history of hypertension, episode of hyponatremia, hyper cholesterolemia, COPD that presented to the emergency department on the 11/20/2019 for possible seizure activity. Per medical records and patient's friend and caregiver stated that the patient was sitting on a couch and she slumped forward and had generalized body shaking. When the shaking episode ended that it occurred sometime to get back to baseline. Rusty sanz does not have history of seizure. Denies any recent head injury. Denies headache blurred vision double vision numbness. It's mentioned that she drank 2 beers the day of presentation which is unusual. She has not been eating in the last 2 days. Denies any fever chills nausea vomiting diarrhea. Episode of feeling dizzy and lightheaded prior to episode followed by unresponsiveness with shaking: Likely syncope/cardiac in etiology (Presented with hypotensive, elevated troponin). Cannot rule out seizure. Dizzy with position is likely benign positional vertigo. Hyponatremia JEREMIAH on CKI--resolve Hypotensive---resolved Elevated troponin Atrial flutter Hx of HTN Plan: Routine EEG 11/21/19: Normal. I will not start the patient on an antiepileptic medication since unknown if this was truly a seizure episode or not. If this was truly a seizure episode then the this would have been the first episode. If she continues to have them then recommend serial EEG or even senior living EEG. Orthostatic vitals: Supine blood pressure of 154/70 with a heart rate of 98; Sitting blood pressure on 150/71 with a heart rate of 97; standing blood pressure 152/75 with a heart rate of 100. Ordered tilt table test. 2-D echo: pending. I'll place the patient on meclizine 12.5 mg twice a day since patient's having positional vertigo was seen suspicious of benign positional vertigo. Patient was placed on meclizine 25 mg when necessary yesterday but the upon reviewing the chart that she did not get the dose. She is currently on the fludrocortisone 0.1 mg daily and that was started by cardiology. Cardiology is on board. Recommend correcting in the the sodium slowly. We'll defer the management of hyponatremia management to the primary team. Issac Cadet M.D. Neuro-hospitalist Time with Patient: Greater than 30
--- NOTE | 2019-11-22 14:46 | P.PN ---
Subjective Progress Note Date: 11/22/19 This is a 73-year-old female patient with medical history significant for c COPD, hypertension, hyponatremia, hyperlipidemia PAFIB, presented to the emergency department yesterday for evaluation after having a possible seizure. The Patient's friend and caregiver states that she was sitting on the couch and she slumped forward and had generalized body shaking. States when the episode ended it took her some time to continue talking. Patient denies history of seizures , recent head injury. She lives with her friends.She Drinks 2 beers a day which is unusual for her. Patient denies any recent rash, fever, chills, cough, nausea, vomiting, diarrhea, constipation, back pain, hematuria, dysuria, urinary urgency, urinary frequency, headache, visual changes, or any other complaints. This am, she feels better and denies any c/o other than midepigastric discomfort. She is c/o of some trouble walking. 11/22/19 evaluated by neurology and cardiology with recommendations noted. EENT reported normal with no antiepileptic medication recommended at this time. Negative for orthostatic hypotension. Tilt table test and echo pending. Sodium improved, 132, and IV fluid hydration. Reports difficulty walking, participating with physical therapy. Potassium 2.9, receiving potassium supplements. Denies chest pain, palpitations or shortness of breath. Denies lightheadedness, dizziness. Occasional nausea. TSH 7.570, free T4 1.13. Objective - Vital Signs Vital signs: Vital Signs Temp 97.4 F L 11/22/19 11:36 Pulse 65 11/22/19 11:36 Resp 16 11/22/19 11:36 BP 108/52 11/22/19 11:36 Pulse Ox 94 L 11/22/19 11:36 Intake & Output 11/21/19 11/22/19 11/22/19 18:59 06:59 18:59 Intake Total 620 240 Output Total 600 400 Balance 20 -400 240 Weight 44.58 kg 47 kg Intake: Oral 620 240 Output: Urine 600 400 Other: # Voids 1 1 - Exam GENERAL: thin female in no acute distress. HEENT: Head is normocephalic. Pupils are equal, round. Sclerae anicteric. Mucous membranes of the mouth are moist. Neck supple. No JVD or thyromegaly, lympahadenopathy LUNGS: Respirations even and unlabored. Lungs essentially clear to auscultation bilaterally. HEART: Irregular rate and rhythm. S1 and S2 normal ,rate is controlled ABDOMEN: Soft. Nondistended. Nontender. Patient with mild tenderness at epigastric region. no rebound EXTREMITIES: Normal range of motion. No clubbing or cyanosis. Peripheral pulses intact. No lower extremity edema NEUROLOGIC: Awake and alert. Oriented x 3. - Labs CBC & Chem 7: 11/22/19 06:53 11/22/19 06:53 Labs: Abnormal Lab Results - Last 24 Hours (Table) 11/22/19 11/22/19 Range/Units 06:53 06:53 RBC 3.65 L (3.80-5.40) m/uL Sodium 132 L (137-145) mmol/L Potassium 2.9 L (3.5-5.1) mmol/L BUN 18 H (7-17) mg/dL Calcium 7.7 L (8.4-10.2) mg/dL Microbiology - Last 24 Hours (Table) 11/20/19 21:51 Blood Culture - Preliminary Blood No Growth after 24 hours Assessment and Plan Assessment: (1) Debility Current Visit: Yes Status: Acute Code(s): R53.81 - OTHER MALAISE SNOMED Code(s): 74298085 (2) Gait abnormality Current Visit: Yes Status: Acute Code(s): R26.9 - UNSPECIFIED ABNORMALITIES OF GAIT AND MOBILITY SNOMED Code(s): 84059341 (3) Hyponatremia Current Visit: Yes Status: Acute Code(s): E87.1 - HYPO-OSMOLALITY AND HYPONATREMIA SNOMED Code(s): 51945545 (4) Hypotension, resolved Current Visit: Yes Status: Acute Code(s): I95.9 - HYPOTENSION, UNSPECIFIED SNOMED Code(s): 24557374 (5) New onset seizure Current Visit: Yes Status: Acute Code(s): R56.9 - UNSPECIFIED CONVULSIONS SNOMED Code(s): 16178944 (6) Chronic obstructive pulmonary disease Current Visit: No Status: Acute Code(s): J44.9 - CHRONIC OBSTRUCTIVE PULMONARY DISEASE, UNSPECIFIED SNOMED Code(s): 39898087 (7) Essential (primary) hypertension Current Visit: No Status: Acute Code(s): I10 - ESSENTIAL (PRIMARY) HYP ERTENSION SNOMED Code(s): 60467885 (8) Hypokalemia Current Visit: No Status: Acute Code(s): E87.6 - HYPOKALEMIA SNOMED Code(s): 33093490 (9) Paroxysmal atrial fibrillation Current Visit: No Status: Acute Code(s): I48.0 - PAROXYSMAL ATRIAL FIBRILLATION SNOMED Code(s): 306796981 (10) Tobacco abuse Current Visit: No Status: Acute Code(s): Z72.0 - TOBACCO USE SNOMED Code(s): 931947994 (11) possible BPV. (12) acute renal failure, resolved Plan: Continue on current medication regime ,monitoring and symptomatic treatment. Seizure precautions maintained Potassium supplements with follow-up potassium level later today. Beta tc increased as per cardiology. Levothyroxine admitted to med regime. PT OT. Discharge planning in progress for subacute rehab. tomorrow, pending neurology and cardiology clearance. The impression and plan of care has been dictated as directed. : I performed a history and examination of this patient, discussed the same with the dictator. I agree with the dictator's note ,documented as a scribe. Any additional findings or plans will be noted.
[2019-11-22] MEDS: METOPROLOL TARTRATE 25 MG TAB PO SCH ×3 (15:18→23:38)
[2019-11-22] MEDS: MECLIZINE 12.5 MG TAB PO SCH (20:25)
[2019-11-22] MEDS ORDERED: FUROSEMIDE 10 MG/ML 4 ML VIAL IV STA (23:16)
--- NOTE | 2019-11-22 23:52 | XR ---
EXAMINATION TYPE: XR chest 1V portable DATE OF EXAM: 11/22/2019 COMPARISON: 11/20/2019 HISTORY: Short of breath TECHNIQUE: Single view FINDINGS: There is pulmonary interstitial edema. There is slight blunting of the costophrenic angles. Heart size is normal. There are chest leads. IMPRESSION: There is new pulmonary interstitial edema compared to old exam. This could be acute heart failure. There is underlying COPD.
[2019-11-23] MEDS ORDERED: FUROSEMIDE 10 MG/ML 4 ML VIAL IV STA (00:49)
[2019-11-23] MEDS ORDERED: LEVOTHYROXINE 25 MCG TAB PO SCH (06:30)
[2019-11-23 06:36] LABS: HCT 41.2 % (34.0-46.0); HGB 13.5 gm/dL (11.4-16.0); MCH 31.6 pg (25.0-35.0); MCHC 32.8 g/dL (31.0-37.0); MCV 96.2 fL (80.0-100.0); Mean Platelet Volume 7.3; Platelet Count 249 k/uL (150-450); RBC 4.29 m/uL (3.80-5.40); RDW 13.2 % (11.5-15.5); WBC 8.2 k/uL (3.8-10.6)
[2019-11-23 07:27] LABS: Potassium 4.4 mmol/L (3.5-5.1)
[2019-11-23 08:57] VITALS: PULSE 113
[2019-11-23] MEDS ORDERED: IV FLUID CONTINUATION 200 ML IV ONE (09:10)
[2019-11-23] MEDS: SYMBICORT 160-4.5 MCG INHALER INHALATION SCH (09:19)
[2019-11-23] MEDS: OLANZapine 5 MG TAB PO SCH (10:01)
[2019-11-23] MEDS: amLODIPine 5 MG TAB PO SCH (10:02)
[2019-11-23] MEDS: lisinopriL 20 MG TAB PO SCH (10:02)
[2019-11-23] MEDS: APIXABAN 5 MG TAB PO SCH (10:02)
[2019-11-23] MEDS: PANTOPRAZOLE 40 MG TABLET PO SCH (10:02)
[2019-11-23] MEDS: FLUDROCORTISONE 0.1 MG TAB PO SCH (10:02)
[2019-11-23] MEDS: MECLIZINE 12.5 MG TAB PO SCH (10:02)
[2019-11-23] MEDS: METOPROLOL TARTRATE 25 MG TAB PO SCH ×2 (10:02→15:35)
[2019-11-23] MEDS: ATORVASTATIN 10 MG TAB PO SCH (10:02)
--- NOTE | 2019-11-23 11:48 | P.PN ---
Subjective Progress Note Date: 11/23/19 CHIEF COMPLAINT: Elevated troponin HISTORY OF PRESENT ILLNESS: Patient examined this morning the bedside. She denies chest pain. Denies shortness of breath. Vital signs stable. She underwent tilt table test ordered by neurology. Results are currently pending. PHYSICAL EXAM: VITAL SIGNS: Reviewed. GENERAL: Well-developed in no acute distress. HEENT: Head is normocephalic. Pupils are equal, round. Sclerae anicteric. Mucous membranes of the mouth are moist. Neck supple. No JVD or thyromegaly LUNGS: Respirations even and unlabored. Lungs essentially clear to auscultation bilaterally. HEART: Irregular rate and rhythm. S1 and S2 heard. EXTREMITIES: Normal range of motion. No clubbing or cyanosis. Peripheral pulses intact. No lower extremity edema NEUROLOGIC: Awake and alert. Oriented x 3. ASSESSMENT: Possible seizure/syncope Atypical chest pain, elevated troponins do not suggest acute myocardial injury Paroxysmal atrial fibrillation, on long-term anticoagulation with Eliquis Hypertension Hyperlipidemia COPD Acute on chronic kidney disease\ Abnormal TSH PLAN: Continue current cardiac medications Await results of tilt table test Stable for discharge from a cardiac standpoint Nurse practitioner note has been reviewed by physician. Signing provider agrees with the documented findings, assessment, and plan of care. Objective - Vital Signs Vital signs: Vital Signs Temp 97.4 F L 11/23/19 08:00 Pulse 113 H 11/23/19 08:00 Resp 20 11/23/19 08:00 BP 127/71 11/23/19 08:00 Pulse Ox 99 11/23/19 08:00 Intake & Output 11/22/19 11/23/19 11/23/19 18:59 06:59 18:59 Intake Total 900 75 Output Total 4250 Balance 900 -4250 75 Weight 50.5 kg Intake: IV 75 Oral 900 Output: Urine 4250 Other: # Voids 1 - Labs CBC & Chem 7: 11/23/19 06:08 11/23/19 06:08 Labs: Abnormal Lab Results - Last 24 Hours (Table) 11/23/19 Range/Units 06:08 Sodium 135 L (137-145) mmol/L Carbon Dioxide 31 H (22-30) mmol/L BUN 25 H (7-17) mg/dL Microbiology - Last 24 Hours (Table) 11/20/19 21:51 Blood Culture - Preliminary Blood No Growth after 48 hours
--- NOTE | 2019-11-23 12:24 | P.DS ---
Providers Date of admission: 11/20/19 23:33 Expected date of discharge: 11/23/19 Attending physician: Panfilo Argueta Consults: 11/20/19 23:24 Consult Physician Routine Consulting Provider: Issac Cadet Consult Reason/Comments: Syncope vs New onset seizure Do you want consulting provider notified?: Yes Consult Physician Urgent Consulting Provider: [facility] Consult Reason/Comments: Elevated trop; Abnormal EKG; Chest Pain Do you want consulting provider notified?: Yes Primary care physician: [facility] Course: Final Diagnoses: -Atypical chest pain, elevated troponins, acute coronary syndrome ruled out as per cardiology (1) dizziness, near syncope, possible New onset seizure, in a patient with proximal atrial fibrillation, status post tilt table, results pending Current Visit: Yes Status: Acute Code(s): R56.9 - UNSPECIFIED CONVULSIONS SNOMED Code(s): 99143536 (2) Possible BPV, a dizziness is positional (3)Medical Debility with gait abnormality Current Visit: Yes Status: Acute Code(s): R53.81 - OTHER MALAISE SNOMED Code(s): 91297118 Current Visit: Yes Status: Acute Code(s): R26.9 - UNSPECIFIED ABNORMALITIES OF GAIT AND MOBILITY SNOMED Code(s): 18875452 (4) Hyponatremia resolved Current Visit: Yes Status: Acute Code(s): E87.1 - HYPO-OSMOLALITY AND HYPONATREMIA SNOMED Code(s): 21417432 (5) Hypotension, resolved Current Visit: Yes Status: Acute Code(s): I95.9 - HYPOTENSION, UNSPECIFIED SNOMED Code(s): 60792373 (6) Chronic obstructive pulmonary disease Current Visit: No Status: Acute Code(s): J44.9 - CHRONIC OBSTRUCTIVE PULMONARY DISEASE, UNSPECIFIED SNOMED Code(s): 35448836 (7) Essential (primary) hypertension Current Visit: No Status: Acute Code(s): I10 - ESSENTIAL (PRIMARY) HYPERTENSION SNOMED Code(s): 83395747 (8) Hypokalemia Current Visit: No Status: Acute Code(s): E87.6 - HYPOKALEMIA SNOMED Code(s): 40011567 (9) Paroxysmal atrial fibrillation Current Visit: No Status: Acute Code(s): I48.0 - PAROXYSMAL ATRIAL FIBRILLATION SNOMED Code(s): 245487162 (10) Tobacco abuse Current Visit: No Status: Acute Code(s): Z72.0 - TOBACCO USE SNOMED Code(s): 705430284 (12) acute renal failure, resolved (13) hypothyroidism, levothyroxine initiated Hospital course:This is a 73-year-old female patient with medical history significant for c COPD, hypertension, hyponatremia, hyperlipidemia PAFIB, pr esented to the emergency department yesterday for evaluation after having a possible seizure. The Patient's friend and caregiver states that she was sitting on the couch and she slumped forward and had generalized body shaking. States when the episode ended it took her some time to continue talking. Patient denies history of seizures , recent head injury. She lives with her friends.She Drinks 2 beers a day which is unusual for her. Patient denies any recent rash, fever, chills, cough, nausea, vomiting, diarrhea, constipation, back pain, hematuria, dysuria, urinary urgency, urinary frequency, headache, visual changes, or any other complaints. This am, she feels better and denies any c/o other than midepigastric discomfort. She is c/o of some trouble walking. 11/22/19 evaluated by neurology and cardiology with recommendations noted. EENT reported normal with no antiepileptic medication recommended at this time. Negative for orthostatic hypotension. Tilt table test and echo pending. Sodium improved, 132, and IV fluid hydration. Reports difficulty walking, participating with physical therapy. Potassium 2.9, receiving potassium supplements. Denies chest pain, palpitations or shortness of breath. Denies lightheadedness, dizziness. Occasional nausea. TSH 7.570, free T4 1.13. Significant clinical improvement. Completed tilt table, results pending. Cleared by consults for discharge. Patient will be discharged to [facility] and subacute rehab in a stable condition with guarded prognosis later today, pending tilt table results and final DC recommendations from neurology. The impression and plan of care has been dictated as directed. : I performed a history and examination of this patient, discussed the same with the dictator. I agree with the dictator's note ,documented as a scribe. Any additional findings or plans will be noted. Patient Condition at Discharge: Stable Plan - Discharge Summary Discharge Rx Participant: No New Discharge Prescriptions: New Meclizine [Antivert] 12.5 mg PO BID #0 tab Metoprolol Tartrate [Lopressor] 25 mg PO TID tab Levothyroxine Sodium [Synthroid] 25 mcg PO DAILY@0630 tab Continue Omeprazole [PriLOSEC] 20 mg PO DAILY Apixaban [Eliquis] 5 mg PO BID #60 tab Budesonide-Formot 160-4.5 Mcg [Symbicort 160-4.5 Mcg Inhaler] 1 puff INHALATION RT-BID amLODIPine [Norvasc] 5 mg PO DAILY OLANZapine [ZyPREXA] 5 mg PO DAILY lisinopriL 20 mg PO DAILY Simvastatin [Zocor] 20 mg PO DAILY Fludrocortisone [Florinef] 0.1 mg PO DAILY Albuterol Sulfate [Albuterol Sulfate Hfa] 2 puff PO RT-Q6H PRN PRN Reason: Shortness Of Breath HYDROcodone/APAP 7.5-325MG [[place] 7.5-325] 1 tab PO Q6H PRN #12 PRN Reason: Pain Discontinued Meclizine [Antivert] 25 mg PO DAILY PRN PRN Reason: DIZZINESS/NAUSEA Chlorthalidone 25 mg PO DAILY Discharge Medication List Omeprazole [PriLOSEC] 20 mg PO DAILY 08/26/16 [History] Apixaban [Eliquis] 5 mg PO BID #60 tab 07/21/18 [Rx] Budesonide-Formot 160-4.5 Mcg [Symbicort 160-4.5 Mcg Inhaler] 1 puff INHALATION RT-BID 06/01/19 [History] OLANZapine [ZyPREXA] 5 mg PO DAILY 06/01/19 [History] amLODIPine [Norvasc] 5 mg PO DAILY 06/01/19 [History] lisinopriL 20 mg PO DAILY 06/01/19 [History] Albuterol Sulfate [Albuterol Sulfate Hfa] 2 puff PO RT-Q6H PRN 11/21/19 [History] Fludrocortisone [Florinef] 0.1 mg PO DAILY 11/21/19 [History] Simvastatin [Zocor] 20 mg PO DAILY 11/21/19 [History] HYDROcodone/APAP 7.5-325MG [[place] 7.5-325] 1 tab PO Q6H PRN #12 11/23/19 [Rx] Levothyroxine Sodium [Synthroid] 25 mcg PO DAILY@0630 tab 11/23/19 [Rx] Meclizine [Antivert] 12.5 mg PO BID #0 tab 11/23/19 [Rx] Metoprolol Tartrate [Lopressor] 25 mg PO TID tab 11/23/19 [Rx] Follow up Appointment(s)/Referral(s): Randell Virk Jr, [Primary Care Provider] - 11/28/19 8:30 am Activity/Diet/Wound Care/Special Instructions: [facility] ECF pending tilt table results CBC,BMP in 3 days Discharge Disposition: TRANSFER TO SNF/ECF
--- NOTE | 2019-11-23 12:47 | P.PN ---
Subjective Progress Note Date: 11/23/19 She was seen at bedside and that she stated that that she's much better today compared to yesterday. She still has this dizziness mostly with the positional and the improved with resting but that she has some dizziness as well as but resting but mostly it was standing up or moving. Denies any nausea any vomiting denies any weakness any visual disturbance. Then she has this chronic ringing in both ears appear denies any hearing loss. Objective - Vital Signs Vital signs: Vital Signs Temp 97.4 F L 11/23/19 08:00 Pulse 113 H 11/23/19 08:00 Resp 20 11/23/19 08:00 BP 127/71 11/23/19 08:00 Pulse Ox 99 11/23/19 08:00 Intake & Output 11/22/19 11/23/19 11/23/19 18:59 06:59 18:59 Intake Total 900 75 Output Total 4250 Balance 900 -4250 75 Weight 50.5 kg Intake: IV 75 Oral 900 Output: Urine 4250 Other: # Voids 1 - Exam GENERAL: The patient is lying in bed and seemed in no distress. CHEST: The heart rate is regular rate rhythm. No murmurs to auscultation. LUNG: Clear to auscultation bilaterally no wheezing noted throughout. Not labored breathing. ABDOMEN/GI: Bowel sounds present in all 4 quadrants. No tenderness to palpation throughout. NEUROLOGICAL: Higher mental function: The patient is awake, alert, oriented to self, place but not time. Patient is following commands. No aphasia and no neglect. Cranial nerves: The pupils are round, equal and reactive to light and accommodation. Visual rolle are full to confrontation throughout. Extraocular movement is intact no nystagmus is noted. Facial sensation is normal to touch throughout. The facial strength is normal throughout. Hearing is normal b ilaterally to hand rub. Tongue is midline and moved [id number] without any difficulty. No dysarthria is noted. Shoulder shrug is normal bilaterally. Motor: Gait is defered. The strength is 5 over 5 throughout. Normal tone and bulk. Cerebellum: Normal finger to nose heel to chin bilaterally. Sensation: Sensation is normal to touch throughout. Reflexes (right/left): 1+ throughout. Plantars are downgoing bilaterally. - Labs CBC & Chem 7: 11/23/19 06:08 11/23/19 06:08 Labs: Abnormal Lab Results - Last 24 Hours (Table) 11/23/19 Range/Units 06:08 Sodium 135 L (137-145) mmol/L Carbon Dioxide 31 H (22-30) mmol/L BUN 25 H (7-17) mg/dL Microbiology - Last 24 Hours (Table) 11/20/19 21:51 Blood Culture - Preliminary Blood No Growth after 48 hours Assessment and Plan Assessment: This is a 73-year-old female with medical history of hypertension, episode of hyponatremia, hyper cholesterolemia, COPD that presented to the emergency department on the 11/20/2019 for possible seizure activity. Per medical records and patient's friend and caregiver stated that the patient was sitting on a couch and she slumped forward and had generalized body shaking. When the shaking episode ended that it occurred sometime to get back to baseline. Patient does not have history of seizure. Denies any recent head injury. Denies headache blurred vision double vision numbness. It's mentioned that she drank 2 beers the day of presentation which is unusual. She has not been eating in the last 2 days. Denies any fever chills nausea vomiting diarrhea. Episode of feeling dizzy and lightheaded followed by unresponsiveness with shaking: Likely syncope/cardiac in etiology (Presented with hypotensive, elevated troponin). Cannot rule out seizure. Dizzy with position is likely benign positional vertigo. Hyponatremia--improving JEREMIAH on CKI--resolve Hypotensive---resolved Elevated troponin Atrial flutter Hx of HTN Plan: Routine EEG 11/21/19: Normal. I will not start the patient on an antiepileptic medication since unknown if this was truly a seizure episode or not. If this was truly a seizure episode then the this would have been the first episode. If she continues to have them then recommend serial EEG or even halfway EEG. Orthostatic vitals: Supine blood pressure of 154/70 with a heart rate of 98; Sitting blood pressure on 150/71 with a heart rate of 97; standing blood pressure 152/75 with a heart rate of 100. Tilt table test: pending result. 2-D echo: Left ventricular size wall thickness and systolic function are normal. Ejection fraction of greater than 55%. Left atrial size is normal. I'll place the patient on meclizine 12.5 mg twice a day since patient's having positional vertigo was seen suspicious of benign positional vertigo. She is currently on the fludrocortisone 0.1 mg daily started by cardiology. Cardiology is on board. Regarding the management of correction of the sodium will defer to the primary team. Patient need to follow-up with a neurologist outpatient since had an episode of questionable seizure. Per [place] law the patient cannot drive for 6 month. Patient to avoid the [place] or the heavy machinery. The avoid swimming unassisted. Issac Cadet M.D. Neuro-hospitalist Time with Patient: Greater than 30
[2019-11-23 16:25] VITALS: BP 101/50; RESP 18; TEMP 97.6
--- NOTE | 2019-11-23 19:02 | P.PCN ---
Preoperative Diagnosis: Diagnosis Recurrent presyncope Twelve-lead ECG Sinus mechanism normal [place] poor R-wave progression in the septal precordial leads normal ST segments QT interval 480 ms, minimal prolongation Tilt table test Tilt table test performed per protocol Baseline blood pressure 116/60 mmHg heart rate 60 beats a minute Patient was tilted upright at an angle of 70 per protocol was in immediate drop in blood pressure 108/57 mmHg following which the blood pressure dropped to around 80 mmHg and remained between 80-100 mmHg. No significant change in heart rate The patient felt lightheaded and stated that this was similar to the episode she will feel at home When she was laid supine her blood pressure returned back to normal Impression Orthostatic hypotension syndrome/dysautonomia Mildly prolonged QT interval on twelve-lead EKG
--- NOTE | 2019-11-24 13:57 | CDI ---
Documentation Clarification Form Date: 11/24/19 From: Prerna Chris Phone: If you have a question about this query, please contact Lilly Burnette, [employer] at [phone] between 8am and 5pm. Admit Date: 11/20/19 Discharge Date:11/23/19 Patient Name: Shanna Krueger Visit Number: [id number] ATTENTION: The Clinical Documentation Specialists (CDI) and [facility] Coding Staff appreciate your assistance in clarifying documentation. Please respond to the clarification below the line at the bottom and electronically sign. The CDI & [facility] Coding staff will review the response and follow-up if needed. Please note: Queries are made part of the Legal Health Record. If you have any questions, please contact the author of this message via ITS. Dear Dr. Argueta The patients principal diagnosis has not been clearly identified and requires clarification. The patient presented with the following: dizziness, near syncope, elevated troponin, possible new onset seizure. Tilt table test still pending at time of discharge but is available now (see below). History/Risk Factors: Hypertension, COPD, JEREMIAH, new onset hypothyroidism, BPV Clinical Indicators: Dizziness, near syncope, hypotension Lab findings: Sodium 127, carbon dioxide 14, chloride 88, BU 30, Creatinine 1.50, Troponin - 0.046, 0.051, 0.064, WBC 13.8 Radiology findings: Brain CT - Cerebral atrophy. No acute intracranial abnormality. EEG: Normal routine EEG during awake state. No focal slowing. No left epileptiform activity. No seizure noted during this study. Clinical correlation recommended. Vital Signs:T. 97.4, P. 67, R. 16, BP 71/46 BP: 11/19: 71/46, 58/47, 90/62, 97/62; 11/20 sitting 88/53, standing 90/51; 11/21 - sitting 150/72, 152/75 standing, 154/70 Tilt Table Test: Orthostatic hypotension syndrome/dysautonomia. Mildly prolonged QT interval on twelve lead EKG. Treatment: Meclizine, home cardiac meds, 1.5 liter NS bolus, levothyroxine started Consults: Neurology - suspicion for BPV In your professional opinion, can you please clarify which diagnosis, after study, accounted for the patients presenting symptoms and was the reason chiefly responsible for the admission? _Vasovagal syncope, Hyponatremia, malnutrition, debility MTDD
--- NOTE | 2019-11-28 14:49 | CDI ---
Documentation Clarification Form Date: 11/28/19 From: Prerna Chris Phone: If you have a question about this query, please contact Lilly Burnette, Trap [employer]er at [phone] between 8am and 5pm. Admit Date: 11/20/19 Discharge Date:11/23/19 Patient Name: Shanna Krueger Visit Number: [id number] ATTENTION: The Clinical Documentation Specialists (CDI) and [facility] Coding Staff appreciate your assistance in clarifying documentation. Please respond to the clarification below the line at the bottom and electronically sign. The CDI & [facility] Coding staff will review the response and follow-up if needed. Please note: Queries are made part of the Legal Health Record. If you have any questions, please contact the author of this message via ITS. Dear Dr. Argueta Malnutrition has been documented in the query response on the first query for principal diagnosis. History/Risk Factors: Debility, Chronic pain, hypertension, atrial fib Clinical Indicators: Decreased BMI Labs: Current BMI: 16.4 Insufficient energy intake: Decreased intake noted in nutritional asssessment Weight Loss: Underweight documented in nutritional assessment Loss of subcutaneous fat: not documented Loss of muscle mass: not documented Fluid accumulation: no lower extremity edema Decreased hand teacher citizenship strength: 5 over 5 throughout Treatment: Dietary Consult: Underweight, unintentional weight loss x 1 year Supplements: Ensure Compact tid In your professional opinion, can you please clarify if these findings signify one of the following conditions? Mild Protein-Calorie Malnutrition Moderate Protein-Calorie Malnutrition Severe Protein-Calorie Malnutrition Malnutrition, unspecified Malnutrition following GI surgery Other condition, please specify Unable to determine MTDD
== END 2019-11-23 16:49 | DRG 312 ==
LOC: EC 21:06 → 3SCARD 23:33
PROVIDERS: ADMIT Family Medicine; ATTEND Family Medicine
PROC: 4A03XB1 Measurement of Arterial Pressure, Peripheral, External Approach (ICD-10-PCS; principal; 2019-11-23 07:30)
PROC: 4A02XFZ Measurement of Cardiac Rhythm, External Approach (ICD-10-PCS; principal; 2019-11-23 07:30)
DX: R55 Syncope and collapse (principal); E87.1 Hypo-osmolality and hyponatremia; I48.92 Unspecified atrial flutter; N17.9 Acute kidney failure, unspecified; E46 Unspecified protein-calorie malnutrition; Z68.1 Body mass index [BMI] 19.9 or less, adult; R07.89 Other chest pain; R26.2 Difficulty in walking, not elsewhere classified; E03.9 Hypothyroidism, unspecified; E78.00 Pure hypercholesterolemia, unspecified; E78.5 Hyperlipidemia, unspecified; E87.6 Hypokalemia; F17.210 Nicotine dependence, cigarettes, uncomplicated; F32.9 Major depressive disorder, single episode, unspecified; F41.9 Anxiety disorder, unspecified; H81.10 Benign paroxysmal vertigo, unspecified ear; I44.30 Unspecified atrioventricular block; I48.0 Paroxysmal atrial fibrillation; J44.9 Chronic obstructive pulmonary disease, unspecified; G89.29 Other chronic pain; K21.9 Gastro-esophageal reflux disease without esophagitis; M19.90 Unspecified osteoarthritis, unspecified site; M54.9 Dorsalgia, unspecified; R26.9 Unspecified abnormalities of gait and mobility; G40.909 Epilepsy, unspecified, not intractable, without status epilepticus; I10 Essential (primary) hypertension; R53.81 Other malaise; R79.89 Other specified abnormal findings of blood chemistry; R94.31 Abnormal electrocardiogram [ECG] [EKG]; Z79.01 Long term (current) use of anticoagulants; Z79.51 Long term (current) use of inhaled steroids; Z79.52 Long term (current) use of systemic steroids; Z79.899 Other long term (current) drug therapy; Z90.49 Acquired absence of other specified parts of digestive tract; Z87.828 Personal history of other (healed) physical injury and trauma
CPT/HCPCS: 36415; 70450; 71045; 71046; 80048; 80053; 80061; 81001; 83735; 83930; 83935; 84132; 84439; 84443; 84484; 85025; 85027; 85610; 85730; 87040; 93005; 93306; 93660; 94640; 95816; 96360; 99285